=== PATIENT | male | born 1955 | race Caucasian/White ===

== ENCOUNTER 2017-05-30 11:58 | Inpatient (IN) | payer MEDICARE, OTHER ==
[~2017-05-30] VITALS: Ht 162.6 cm; Wt 103.0 kg
[~2017-05-30 11:58] MED LIST: ACID1TAB7 PO; CLIN300C8 PO; LEVO750T26 PO; LISI-167 PO; MULT-658 PO; SULF-169 PO
[2017-05-30] MEDS ORDERED: VANCOMYCIN PER PHARMACY MC ONE (12:30)
[2017-05-30] MEDS ORDERED: SODIUM CHLORIDE FLUSH 10ML SYR IVF ONE (12:30)
[2017-05-30] MEDS ORDERED: CEFTRIAXONE PMX 1GM/50ML 50 ML IVPB ONE (12:30)
[2017-05-30] MEDS ORDERED: VANCOMYCIN 2,000 MG in SODIUM CHLORIDE 0.9% 500 ML IV ONE (13:00)
[2017-05-30 13:12] LABS: HEMATOCRIT 43.6 % (39.2-51.8); HEMOGLOBIN 14.4 g/dL (13.7-18.0)
[2017-05-30 13:22] LABS: BLOOD UREA NITROGEN 14 mg/dL (7-18)
[2017-05-30 13:25] LABS: ASPARTATE AMINO TRANSFERASE 25 U/L (15-37)
[2017-05-30] MEDS ORDERED: AMPICILLIN/SULBACTAM 3 GM in SODIUM CHLORIDE 0.9% 100 ML IV SCH (16:30)
[2017-05-30] MEDS ORDERED: VANCOMYCIN PER PHARMACY MC PRN (16:30)
[2017-05-30] MEDS ORDERED: ONDANSETRON ODT 4 MG PO PRN (17:00)
[2017-05-30] MEDS: ENOXAPARIN 40 MG/0.4 ML SQ SCH (17:00)
[2017-05-30] MEDS ORDERED: PHARMACOKINETIC MONITORING MC PRN (17:00)
[2017-05-30] MEDS ORDERED: ONDANSETRON 2MG/ML, 2ML IVPush PRN (17:00)
[2017-05-30] MEDS ORDERED: HYDROcodone/APAP 5/325 TABLET PO PRN (17:00)
[2017-05-30 17:15] VITALS: BP 125/84
[2017-05-30] MEDS: SODIUM CHLORIDE 0.9% 1,000 ML IV SCH (17:20)
[2017-05-30] MEDS: AMPICILLIN/SULBACTAM 3 GM in SODIUM CHLORIDE 0.9% 100 ML IV SCH ×2 (17:20→23:36)
[2017-05-30] MEDS: POTASSIUM CHLORIDE 20 MEQ TAB.ER.PRT PO SCH (17:21)
[2017-05-30] MEDS ORDERED: AMLO10TA4 PO (17:48)
[2017-05-30 19:37] VITALS: BP 119/75
[2017-05-31 01:13] VITALS: BP 110/72
[2017-05-31] MEDS: ACETAMINOPHEN 325 MG TABLET PO PRN (01:19)
[2017-05-31] MEDS: SODIUM CHLORIDE 0.9% 1,000 ML IV SCH (05:23)
[2017-05-31] MEDS: AMPICILLIN/SULBACTAM 3 GM in SODIUM CHLORIDE 0.9% 100 ML IV SCH ×3 (05:24→19:21)
[2017-05-31 05:31] LABS: BLOOD UREA NITROGEN 9 mg/dL (7-18)
[2017-05-31 05:32] LABS: HEMATOCRIT 37.8 % (39.2-51.8); HEMOGLOBIN 12.5 g/dL (13.7-18.0); WHITE BLOOD COUNT 24.2 x10^3/uL (3.4-10)
[2017-05-31 05:34] LABS: ASPARTATE AMINO TRANSFERASE 21 U/L (15-37)
[2017-05-31 07:08] VITALS: BP 94/60
[2017-05-31] MEDS: POTASSIUM CHLORIDE 20 MEQ TAB.ER.PRT PO SCH (08:21)
[2017-05-31] MEDS: AMLODIPINE 5 MG TABLET PO SCH (08:22)
[2017-05-31] MEDS: VANCOMYCIN 2,000 MG in SODIUM CHLORIDE 0.9% 500 ML IV SCH (08:22)
[2017-05-31 13:20] VITALS: BP 108/73
[2017-05-31] MEDS ORDERED: LORazepam 2 MG/ML, 1ML IVPush ONE (16:30)
[2017-05-31] MEDS: ENOXAPARIN 40 MG/0.4 ML SQ SCH (17:00)
[2017-05-31] MEDS ORDERED: GADOBUTROL 10 MMOL/10 ML PFS ONE (18:00)
[2017-05-31 19:04] VITALS: BP 113/75
[2017-06-01] MEDS: AMPICILLIN/SULBACTAM 3 GM in SODIUM CHLORIDE 0.9% 100 ML IV SCH ×4 (00:58→22:32)
[2017-06-01] MEDS: VANCOMYCIN 2,000 MG in SODIUM CHLORIDE 0.9% 500 ML IV SCH ×2 (01:31→19:13)
[2017-06-01 02:13] VITALS: BP 110/72
[2017-06-01 07:27] VITALS: BP 115/75
[2017-06-01 09:24] LABS: HEMATOCRIT 37.6 % (39.2-51.8); HEMOGLOBIN 12.4 g/dL (13.7-18.0); WHITE BLOOD COUNT 33.8 x10^3/uL (3.4-10)
[2017-06-01 09:43] LABS: DIFF TOTAL CELLS COUNTED 100 CELL DIFF
[2017-06-01 09:44] LABS: ASPARTATE AMINO TRANSFERASE 22 U/L (15-37); BLOOD UREA NITROGEN 9 mg/dL (7-18)
[2017-06-01 09:46] LABS: VERIFY COUNTS? YES
[2017-06-01 09:47] LABS: ANISOCYTOSIS 1+; MICROCYTOSIS 1+
[2017-06-01 09:53] LABS: POLYCHROMASIA 1+
[2017-06-01] MEDS: AMLODIPINE 5 MG TABLET PO SCH (11:35)
[2017-06-01 14:00] VITALS: BP 115/75
[2017-06-01 16:56] VITALS: BP 108/73
[2017-06-01] MEDS: ENOXAPARIN 40 MG/0.4 ML SQ SCH (17:00)
[2017-06-01 19:15] VITALS: BP 102/68
[2017-06-01] MEDS ORDERED: DIPHENHYDRAMINE 25 MG CAPSULE PO ONE (20:00)
[2017-06-02 02:35] VITALS: BP 113/73
[2017-06-02 03:48] LABS: HEMATOCRIT 36.2 % (39.2-51.8); HEMOGLOBIN 11.8 g/dL (13.7-18.0); WHITE BLOOD COUNT 30.6 x10^3/uL (3.4-10)
[2017-06-02 04:00] LABS: BLOOD UREA NITROGEN 9 mg/dL (7-18)
[2017-06-02 04:21] LABS: DIFF TOTAL CELLS COUNTED 100 CELL DIFF
[2017-06-02 04:23] LABS: VERIFY COUNTS? YES
[2017-06-02 04:24] LABS: ANISOCYTOSIS 1+; MICROCYTOSIS 1+; POLYCHROMASIA 1+
[2017-06-02] MEDS: AMPICILLIN/SULBACTAM 3 GM in SODIUM CHLORIDE 0.9% 100 ML IV SCH ×2 (04:53→10:00)
[2017-06-02 08:10] VITALS: BP 114/73
[2017-06-02] MEDS: AMLODIPINE 5 MG TABLET PO SCH (10:00)
[2017-06-02] MEDS ORDERED: DIPHENHYDRAMINE 25 MG CAPSULE PO PRN (11:00)
[2017-06-02] MEDS ORDERED: POTASSIUM CHLORIDE 20 MEQ TAB.ER.PRT PO ONE (11:00)
[2017-06-02 12:36] VITALS: BP 111/71
[2017-06-02] MEDS ORDERED: CEFTAROLINE 600 MG in SODIUM CHLORIDE 0.9% 100 ML IV SCH (13:00)
[2017-06-02] MEDS: CEFTAROLINE 600 MG in SODIUM CHLORIDE 0.9% 250 ML IV SCH ×2 (13:56→21:17)
[2017-06-02] MEDS: ENOXAPARIN 40 MG/0.4 ML SQ SCH (16:10)
[2017-06-02 19:11] VITALS: BP 131/81
[2017-06-03 02:00] VITALS: BP 117/75
[2017-06-03] MEDS: CEFTAROLINE 600 MG in SODIUM CHLORIDE 0.9% 250 ML IV SCH ×3 (05:18→21:32)
[2017-06-03 05:58] LABS: HEMATOCRIT 34.5 % (39.2-51.8); HEMOGLOBIN 11.4 g/dL (13.7-18.0)
[2017-06-03 06:09] LABS: BLOOD UREA NITROGEN 9 mg/dL (7-18)
[2017-06-03 06:17] LABS: DIFF TOTAL CELLS COUNTED 100 CELL DIFF
[2017-06-03 06:19] LABS: ANISOCYTOSIS 1+; MICROCYTOSIS 1+; POLYCHROMASIA 1+; VERIFY COUNTS? YES
[2017-06-03 06:22] LABS: ASPARTATE AMINO TRANSFERASE 77 U/L (15-37); FERRITIN 297.1 ng/mL (26-388); TOTAL IRON BINDING CAPACITY 139 mcg/dL (250-450)
[2017-06-03 07:11] VITALS: BP 116/73
[2017-06-03] MEDS: AMLODIPINE 5 MG TABLET PO SCH (08:48)
[2017-06-03] MEDS: ACETAMINOPHEN 325 MG TABLET PO PRN (08:49)
[2017-06-03 12:38] VITALS: BP 117/74
[2017-06-03] MEDS: ENOXAPARIN 40 MG/0.4 ML SQ SCH (17:00)
[2017-06-03 18:46] VITALS: BP 121/78
[2017-06-04 03:41] VITALS: BP 128/80
[2017-06-04 04:41] LABS: HEMATOCRIT 37.7 % (39.2-51.8); HEMOGLOBIN 12.4 g/dL (13.7-18.0); WHITE BLOOD COUNT 21.9 x10^3/uL (3.4-10)
[2017-06-04 04:46] LABS: BLOOD UREA NITROGEN 7 mg/dL (7-18)
[2017-06-04] MEDS: CEFTAROLINE 600 MG in SODIUM CHLORIDE 0.9% 250 ML IV SCH ×3 (04:56→21:00)
[2017-06-04 09:41] VITALS: BP 121/71
[2017-06-04] MEDS: AMLODIPINE 5 MG TABLET PO SCH (10:15)
[2017-06-04 15:30] VITALS: BP 126/78
[2017-06-04] MEDS: ENOXAPARIN 40 MG/0.4 ML SQ SCH (15:50)
[2017-06-04 22:06] VITALS: BP 123/75
[2017-06-05 01:08] VITALS: BP 128/79
[2017-06-05] MEDS: CEFTAROLINE 600 MG in SODIUM CHLORIDE 0.9% 250 ML IV SCH ×3 (04:52→20:38)
[2017-06-05 05:05] LABS: HEMATOCRIT 36.9 % (39.2-51.8); HEMOGLOBIN 12.1 g/dL (13.7-18.0); WHITE BLOOD COUNT 15.5 x10^3/uL (3.4-10)
[2017-06-05 05:13] LABS: BLOOD UREA NITROGEN 7 mg/dL (7-18)
[2017-06-05 08:00] VITALS: BP 115/68
[2017-06-05] MEDS: AMLODIPINE 5 MG TABLET PO SCH (09:00)
[2017-06-05 13:36] VITALS: BP 109/70
[2017-06-05] MEDS: ENOXAPARIN 40 MG/0.4 ML SQ SCH (17:00)
[2017-06-05] MEDS ORDERED: ONDANSETRON ODT 4 MG PO PRN (18:30)
[2017-06-05] MEDS ORDERED: HYDROcodone/APAP 5/325 TABLET PO PRN (18:30)
[2017-06-05 18:43] VITALS: BP 115/72
[2017-06-06] MEDS: DIPHENHYDRAMINE 25 MG CAPSULE PO PRN (02:55)
[2017-06-06 03:27] VITALS: BP 126/68
[2017-06-06] MEDS: CEFTAROLINE 600 MG in SODIUM CHLORIDE 0.9% 250 ML IV SCH ×3 (04:58→21:24)
[2017-06-06 05:45] LABS: BLOOD UREA NITROGEN 9 mg/dL (7-18)
[2017-06-06 05:57] LABS: ASPARTATE AMINO TRANSFERASE 41 U/L (15-37)
[2017-06-06 06:01] LABS: WHITE BLOOD COUNT 13.6 x10^3/uL (3.4-10)
[2017-06-06 07:21] VITALS: BP 121/74
[2017-06-06] MEDS: AMLODIPINE 5 MG TABLET PO SCH (08:31)
[2017-06-06 13:09] VITALS: BP 117/73
[2017-06-06] MEDS: CARBAMIDE PEROXIDE EAR DROPS 6.5%, 15ML EACH EAR SCH ×2 (16:09→21:25)
[2017-06-06] MEDS: ENOXAPARIN 40 MG/0.4 ML SQ SCH (16:11)
[2017-06-06 19:27] VITALS: BP 117/77
[2017-06-07 01:21] VITALS: BP 126/82
[2017-06-07] MEDS: CEFTAROLINE 600 MG in SODIUM CHLORIDE 0.9% 250 ML IV SCH ×3 (04:57→22:16)
[2017-06-07 05:36] LABS: HEMATOCRIT 36.2 % (39.2-51.8); HEMOGLOBIN 11.9 g/dL (13.7-18.0); WHITE BLOOD COUNT 11.3 x10^3/uL (3.4-10)
[2017-06-07 05:52] LABS: BLOOD UREA NITROGEN 9 mg/dL (7-18)
[2017-06-07 07:19] VITALS: BP 103/66
[2017-06-07] MEDS: CARBAMIDE PEROXIDE EAR DROPS 6.5%, 15ML EACH EAR SCH ×4 (09:00→22:16)
[2017-06-07] MEDS: AMLODIPINE 5 MG TABLET PO SCH (09:46)
[2017-06-07 12:48] VITALS: BP 113/70
[2017-06-07] MEDS: MULTIVITAMIN 1 TABLET PO SCH (13:56)
[2017-06-07] MEDS: ENOXAPARIN 40 MG/0.4 ML SQ SCH (17:00)
[2017-06-07 20:02] VITALS: BP 119/79
[2017-06-07] MEDS: DIPHENHYDRAMINE 25 MG CAPSULE PO PRN (22:36)
[2017-06-08 02:10] VITALS: BP 121/79
[2017-06-08] MEDS: CEFTAROLINE 600 MG in SODIUM CHLORIDE 0.9% 250 ML IV SCH ×3 (05:15→21:05)
[2017-06-08 05:29] LABS: HEMATOCRIT 38.2 % (39.2-51.8); HEMOGLOBIN 12.4 g/dL (13.7-18.0); WHITE BLOOD COUNT 10.8 x10^3/uL (3.4-10)
[2017-06-08 05:41] LABS: BLOOD UREA NITROGEN 8 mg/dL (7-18)
[2017-06-08 08:06] VITALS: BP 127/76
[2017-06-08] MEDS: AMLODIPINE 5 MG TABLET PO SCH (08:46)
[2017-06-08] MEDS: CARBAMIDE PEROXIDE EAR DROPS 6.5%, 15ML EACH EAR SCH ×3 (08:46→21:05)
[2017-06-08] MEDS: MULTIVITAMIN 1 TABLET PO SCH (08:46)
[2017-06-08 14:53] VITALS: BP 109/68
[2017-06-08] MEDS: ENOXAPARIN 40 MG/0.4 ML SQ SCH (16:44)
[2017-06-08 19:13] VITALS: BP 116/72
[2017-06-09 04:00] VITALS: BP 110/70
[2017-06-09] MEDS: CEFTAROLINE 600 MG in SODIUM CHLORIDE 0.9% 250 ML IV SCH ×3 (05:21→20:57)
[2017-06-09 05:41] LABS: HEMATOCRIT 38.7 % (39.2-51.8); HEMOGLOBIN 12.4 g/dL (13.7-18.0); WHITE BLOOD COUNT 11.4 x10^3/uL (3.4-10)
[2017-06-09 06:05] LABS: BLOOD UREA NITROGEN 12 mg/dL (7-18)
[2017-06-09 08:03] VITALS: BP 131/84
[2017-06-09] MEDS: AMLODIPINE 5 MG TABLET PO SCH (10:02)
[2017-06-09] MEDS: MULTIVITAMIN 1 TABLET PO SCH (10:02)
[2017-06-09] MEDS: CARBAMIDE PEROXIDE EAR DROPS 6.5%, 15ML EACH EAR SCH ×3 (10:02→21:00)
[2017-06-09 16:11] VITALS: BP 125/75
[2017-06-09] MEDS: ENOXAPARIN 40 MG/0.4 ML SQ SCH (16:23)
[2017-06-09 19:36] VITALS: BP 106/65
[2017-06-09] MEDS: DIPHENHYDRAMINE 25 MG CAPSULE PO PRN (20:57)
[2017-06-10 01:57] VITALS: BP 124/79
[2017-06-10] MEDS: CEFTAROLINE 600 MG in SODIUM CHLORIDE 0.9% 250 ML IV SCH ×2 (04:51→13:19)
[2017-06-10 05:37] LABS: HEMATOCRIT 37.6 % (39.2-51.8); HEMOGLOBIN 12.4 g/dL (13.7-18.0); WHITE BLOOD COUNT 10.2 x10^3/uL (3.4-10)
[2017-06-10 05:48] LABS: BLOOD UREA NITROGEN 15 mg/dL (7-18)
[2017-06-10 07:01] VITALS: BP 132/78
[2017-06-10] MEDS: MULTIVITAMIN 1 TABLET PO SCH (10:33)
[2017-06-10] MEDS: CARBAMIDE PEROXIDE EAR DROPS 6.5%, 15ML EACH EAR SCH (10:33)
[2017-06-10] MEDS: AMLODIPINE 5 MG TABLET PO SCH (10:33)
[2017-06-10 14:43] VITALS: BP 144/74
== END 2017-06-10 15:25 | DRG 871 ==
LOC: ED 15:28 → EDIP 15:29 → ED 15:34 → 3NE 16:45
PROVIDERS: ADMIT Hospitalist; ATTEND Hospitalist
PROC: 02HV33Z Insertion of Infusion Device into Superior Vena Cava, Percutaneous Approach (ICD-10-PCS; principal; 2017-06-01)
PROC: B548ZZA Ultrasonography of Superior Vena Cava, Guidance (ICD-10-PCS; 2017-06-01)
PROC: B5181ZA Fluoroscopy of Superior Vena Cava using Low Osmolar Contrast, Guidance (ICD-10-PCS; 2017-06-01)
DX: A41.9 Sepsis, unspecified organism (principal); E43 Unspecified severe protein-calorie malnutrition; E11.52 Type 2 diabetes mellitus with diabetic peripheral angiopathy with gangrene; L89.319 Pressure ulcer of right buttock, unspecified stage; L03.116 Cellulitis of left lower limb; M86.8X7 Other osteomyelitis, ankle and foot; L03.115 Cellulitis of right lower limb; E87.6 Hypokalemia; L89.620 Pressure ulcer of left heel, unstageable; Q05.9 Spina bifida, unspecified; D75.89 Other specified diseases of blood and blood-forming organs; E11.621 Type 2 diabetes mellitus with foot ulcer; E11.65 Type 2 diabetes mellitus with hyperglycemia; E11.69 Type 2 diabetes mellitus with other specified complication; I11.0 Hypertensive heart disease with heart failure; Z68.39 Body mass index [BMI] 39.0-39.9, adult; I50.9 Heart failure, unspecified; K59.00 Constipation, unspecified; M19.90 Unspecified osteoarthritis, unspecified site; R32 Unspecified urinary incontinence; Z82.1 Family history of blindness and visual loss; Z82.49 Family history of ischemic heart disease and other diseases of the circulatory system; Z83.3 Family history of diabetes mellitus; Z86.14 Personal history of Methicillin resistant Staphylococcus aureus infection; Z89.511 Acquired absence of right leg below knee; Z91.19 Patient's noncompliance with other medical treatment and regimen; Z88.0 Allergy status to penicillin; L89.899 Pressure ulcer of other site, unspecified stage
CPT/HCPCS: 36415; 36569; 51702; 76937; 77001; 80048; 80053; 82728; 83036; 83540; 83550; 83605; 83735; 85025; 85610; 85651; 86140; 87040; 87070; 87077; 87147; 87186; 87205; 93005; 96365; 96366; A9585; J0295; J0712; J2405; J3370; C1751; J2060; J7030; J7040; J7050; Q0163

== ENCOUNTER 2017-09-07 11:15 | Emergency (ER) | payer OTHER ==
[~2017-09-07] VITALS: Ht 162.6 cm; Wt 120.0 kg
[~2017-09-07 11:15] MED LIST changes: +AMLO10TA4 PO
[2017-09-07 14:36] LABS: BASOPHILS % (AUTO) 1 % (0-1); EOSINOPHILS # (AUTO) 0.58 x10^3/uL (0-0.4); EOSINOPHILS % (AUTO) 5 % (1-7); LYMPHOCYTES # (AUTO) 2.38 x10^3/uL (1-3.4); LYMPHOCYTES % (AUTO) 20 % (22-44); MD NO; MEAN CORPUSCULAR HEMOGLOBIN 26.6 pg (27.5-34.5); MEAN CORPUSCULAR HGB CONC 32.5 g/dL (33.2-36.2); MEAN CORPUSCULAR VOLUME 81.7 fL (81-97); MEAN PLATELET VOLUME 7.8 fL (7.4-10.4); MONOCYTES # (AUTO) 0.66 x10^3/uL (0.2-0.8); MONOCYTES % (AUTO) 5 % (2-9); NEUTROPHILS # (AUTO) 8.46 x10^3/uL (1.8-6.8); NEUTROPHILS % (AUTO) 70 % (42-75); PLATELET COUNT 415 x10^3/uL (130-400); RED BLOOD COUNT 5.42 x10^6/uL (4.38-5.82); RED CELL DISTRIBUTION WIDTH 15.3 % (9.4-14.8)
[2017-09-07 14:48] LABS: ALBUMIN 2.8 g/dL (3.4-5.0); ANION GAP 8 mmol/L (5-15); CALCIUM 8.1 mg/dL (8.5-10.1); CHLORIDE 104 mmol/L (98-107); CREATININE 0.75 mg/dL (0.7-1.3)
[2017-09-07] MEDS ORDERED: CLINDAMYCIN 300 MG CAPSULE PO ONE (15:00)
[2017-09-07] MEDS ORDERED: CLINDAMYCIN 300 MG CAPSULE ONE (15:21)
[2017-09-07 15:47] VITALS: BP 126/82
== END 2017-09-07 15:49 | disposition home or self-care (01) ==
LOC: ED 13:50
DX: L89.893 Pressure ulcer of other site, stage 3 (principal); E11.9 Type 2 diabetes mellitus without complications; L03.116 Cellulitis of left lower limb; L89.93 Pressure ulcer of unspecified site, stage 3
CPT/HCPCS: 36415; 80048; 82040; 83605; 85025; 87040; 99285

== ENCOUNTER → 2017-12-02 | Outpatient (CLI) | payer OTHER | END | disposition home or self-care (01) | LOC: WOUND 11:48 | PROVIDERS: ATTEND Family Medicine | DX: I87.312 Chronic venous hypertension (idiopathic) with ulcer of left lower extremity (principal); L97.422 Non-pressure chronic ulcer of left heel and midfoot with fat layer exposed; L97.521 Non-pressure chronic ulcer of other part of left foot limited to breakdown of skin; Q05.8 Sacral spina bifida without hydrocephalus; E66.01 Morbid (severe) obesity due to excess calories; M19.90 Unspecified osteoarthritis, unspecified site; Z87.891 Personal history of nicotine dependence; Z89.511 Acquired absence of right leg below knee; Z68.43 Body mass index [BMI] 50.0-59.9, adult | CPT/HCPCS: 11042; 17250; 97597 ==

== ENCOUNTER → 2017-12-06 | Outpatient (CLI) | payer OTHER | END | disposition home or self-care (01) | LOC: WOUND 13:32 | PROVIDERS: ATTEND Internal Medicine Cardiovascular Disease | DX: T87.89 Other complications of amputation stump (principal); E11.621 Type 2 diabetes mellitus with foot ulcer; L89.629 Pressure ulcer of left heel, unspecified stage; L97.421 Non-pressure chronic ulcer of left heel and midfoot limited to breakdown of skin; L89.899 Pressure ulcer of other site, unspecified stage; L97.521 Non-pressure chronic ulcer of other part of left foot limited to breakdown of skin; E11.622 Type 2 diabetes mellitus with other skin ulcer; L97.811 Non-pressure chronic ulcer of other part of right lower leg limited to breakdown of skin; E66.01 Morbid (severe) obesity due to excess calories; I10 Essential (primary) hypertension; M19.90 Unspecified osteoarthritis, unspecified site; Q05.8 Sacral spina bifida without hydrocephalus; Z87.891 Personal history of nicotine dependence; Y83.5 Amputation of limb(s) as the cause of abnormal reaction of the patient, or of later complication, without mention of misadventure at the time of the procedure | CPT/HCPCS: 29581 ==

== ENCOUNTER 2017-12-11 04:36 | Inpatient (IN) | payer OTHER ==
[~2017-12-11] VITALS: Ht 162.6 cm; Wt 98.3 kg
[2017-12-11] MEDS ORDERED: SODIUM CHLORIDE FLUSH 10ML SYR IVF ONE (05:00)
[2017-12-11] MEDS ORDERED: VANCOMYCIN PER PHARMACY IV ONE (05:00)
[2017-12-11] MEDS ORDERED: CLINDAMYCIN PMX 900MG/50ML 50 ML IV ONE (05:00)
[2017-12-11] MEDS ORDERED: CLINDAMYCIN PMX 900MG/50ML 50 ML ONE (05:13)
[2017-12-11 05:20] LABS: MEAN CORPUSCULAR HEMOGLOBIN 26.7 pg (27.5-34.5); MEAN CORPUSCULAR VOLUME 80.8 fL (81-97); MEAN PLATELET VOLUME 7.8 fL (7.4-10.4); PLATELET COUNT 254 x10^3/uL (130-400); RED BLOOD COUNT 5.66 x10^6/uL (4.38-5.82); RED CELL DISTRIBUTION WIDTH 17.8 % (9.4-14.8)
[2017-12-11 05:30] LABS: ALANINE AMINOTRANSFERASE 15 U/L (12-78); ALBUMIN 2.7 g/dL (3.4-5.0); ANION GAP 9 mmol/L (5-15); CHLORIDE 98 mmol/L (98-107); CREATININE 1.28 mg/dL (0.7-1.3)
[2017-12-11] MEDS ORDERED: SODIUM CHLORIDE 0.9% 1,000ML IVBOLUS ONE (05:30)
[2017-12-11] MEDS ORDERED: LEVOFLOXACIN/PMX 750MG/150ML 150 ML IVPB ONE (05:30)
[2017-12-11] MEDS ORDERED: VANCOMYCIN 1,900 MG in SODIUM CHLORIDE 0.9% 250 ML IV ONE (05:30)
[2017-12-11 05:32] LABS: ALKALINE PHOSPHATASE 106 U/L (45-117); BILIRUBIN,TOTAL 1.3 mg/dL (0.2-1.0); TOTAL PROTEIN 8.2 g/dL (6.4-8.2)
[2017-12-11 05:51] LABS: MD YES
[2017-12-11 05:54] LABS: LYMPH#(MANUAL) 1.48 x10^3/uL (1-3.4); LYMPHS% (MANUAL) 4 % (22-44); MONOS#(MANUAL) 0.37 x10^3/uL (0.3-2.7); MONOS% (MANUAL) 1 % (2-9)
[2017-12-11 05:56] LABS: ANISOCYTOSIS 1+; BAND#(MANUAL) 1.48 x10^3/uL; BANDS%(MANUAL) 4 % (0-7); SEG#(MANUAL) 33.58 x10^3/uL (1.8-6.8); SEGS% (MANUAL) 91 % (42-75)
[2017-12-11 05:57] LABS: <PLATELET ESTIMATE> ADEQUATE; <PLT MORPHOLOGY> NORMAL PLT MORPH
[2017-12-11] MEDS ORDERED: LEVOFLOXACIN/PMX 750MG/150ML 150 ML ONE (08:15)
[2017-12-11] MEDS ORDERED: hydrALAzine 20 MG/ML, 1ML IVPush PRN (09:00)
[2017-12-11] MEDS ORDERED: OXYcodone IR 5MG TABLET PO PRN (09:00)
[2017-12-11] MEDS ORDERED: morphine SULFATE 10 MG/ML, 1ML IVPush PRN (09:00)
[2017-12-11] MEDS: POLYETHYLENE GLYCOL 17 GM PACKET PO SCH (09:00)
[2017-12-11] MEDS: HEPARIN 5,000 UNITS/ML, 1ML SQ SCH ×3 (09:00→17:00)
[2017-12-11 12:00] VITALS: BP 121/82
[2017-12-11 12:02] LABS: HCT (SEDRATE) 43.7 % (39.2-51.8)
[2017-12-11] MEDS: ACETAMINOPHEN 500 MG TABLET PO PRN (12:12)
[2017-12-11 14:00] VITALS: BP 102/70
[2017-12-11] MEDS ORDERED: LIDOCAINE-MPF 1%, 2ML ONE ×2 (14:23→14:30)
[2017-12-11] MEDS: AMLODIPINE 5 MG TABLET PO SCH (15:18)
[2017-12-11] MEDS: SODIUM CHLORIDE 0.9% 1,000 ML IV SCH (15:25)
[2017-12-11] MEDS: CLINDAMYCIN PMX 900MG/50ML 50 ML IV SCH (15:26)
[2017-12-11] MEDS: CEFTAROLINE 600 MG in SODIUM CHLORIDE 0.9% 100 ML IV SCH ×2 (16:36→17:00)
[2017-12-11] MEDS: METRONIDAZOLE PMX 500MG/100ML 100 ML IV SCH ×3 (17:00→23:10)
[2017-12-11 19:20] VITALS: BP 95/66
[2017-12-12] MEDS: CLINDAMYCIN PMX 900MG/50ML 50 ML IV SCH ×3 (00:08→15:39)
[2017-12-12] MEDS: HEPARIN 5,000 UNITS/ML, 1ML SQ SCH ×3 (01:00→17:00)
[2017-12-12] MEDS: CEFTAROLINE 600 MG in SODIUM CHLORIDE 0.9% 100 ML IV SCH ×3 (01:26→16:28)
[2017-12-12 01:33] VITALS: BP 106/73
[2017-12-12] MEDS ORDERED: OMNIPAQUE 350 MG/ML, 100ML BOTTLE ONE (03:42)
[2017-12-12] MEDS: SODIUM CHLORIDE 0.9% 1,000 ML IV SCH (04:50)
[2017-12-12] MEDS: METRONIDAZOLE PMX 500MG/100ML 100 ML IV SCH ×4 (04:50→23:01)
[2017-12-12 06:51] LABS: MEAN CORPUSCULAR HEMOGLOBIN 26.9 pg (27.5-34.5); MEAN CORPUSCULAR HGB CONC 33.1 g/dL (33.2-36.2); MEAN CORPUSCULAR VOLUME 81.4 fL (81-97); MEAN PLATELET VOLUME 7.9 fL (7.4-10.4); PLATELET COUNT 228 x10^3/uL (130-400); RED BLOOD COUNT 4.67 x10^6/uL (4.38-5.82); RED CELL DISTRIBUTION WIDTH 18.2 % (9.4-14.8)
[2017-12-12 06:59] VITALS: BP 97/65
[2017-12-12 07:05] LABS: ANION GAP 7 mmol/L (5-15); CALCIUM 7.4 mg/dL (8.5-10.1); CHLORIDE 106 mmol/L (98-107)
[2017-12-12 07:08] LABS: ALANINE AMINOTRANSFERASE 10 U/L (12-78); ALKALINE PHOSPHATASE 94 U/L (45-117); CREATININE 1.12 mg/dL (0.7-1.3); TOTAL PROTEIN 6.4 g/dL (6.4-8.2)
[2017-12-12 07:14] LABS: MD YES
[2017-12-12 07:15] LABS: <PLATELET ESTIMATE> ADEQUATE; <PLT MORPHOLOGY> NORMAL PLT MORPH; ANISOCYTOSIS 1+; BANDS%(MANUAL) 2 % (0-7); EOS% (MANUAL) 1 % (1-7); LYMPHS% (MANUAL) 3 % (22-44); MONOS% (MANUAL) 2 % (2-9); SEGS% (MANUAL) 92 % (42-75)
[2017-12-12] MEDS: AMLODIPINE 5 MG TABLET PO SCH (08:40)
[2017-12-12] MEDS: POLYETHYLENE GLYCOL 17 GM PACKET PO SCH (08:45)
[2017-12-12 13:39] VITALS: BP 95/60
[2017-12-12] MEDS: POTASSIUM CHLORIDE 20 MEQ TAB.ER.PRT PO SCH ×2 (15:09→22:51)
[2017-12-12 20:54] VITALS: BP 107/69
[2017-12-13] MEDS: CLINDAMYCIN PMX 900MG/50ML 50 ML IV SCH ×3 (00:09→15:27)
[2017-12-13] MEDS: HEPARIN 5,000 UNITS/ML, 1ML SQ SCH ×4 (00:12→16:52)
[2017-12-13] MEDS: CEFTAROLINE 600 MG in SODIUM CHLORIDE 0.9% 100 ML IV SCH ×3 (01:22→16:34)
[2017-12-13 02:34] VITALS: BP 107/68
[2017-12-13] MEDS: SODIUM CHLORIDE 0.9% 1,000 ML IV SCH (05:07)
[2017-12-13] MEDS: METRONIDAZOLE PMX 500MG/100ML 100 ML IV SCH ×4 (05:07→23:32)
[2017-12-13 05:32] LABS: MEAN CORPUSCULAR HEMOGLOBIN 26.8 pg (27.5-34.5); MEAN CORPUSCULAR HGB CONC 33.1 g/dL (33.2-36.2); MEAN CORPUSCULAR VOLUME 80.9 fL (81-97); MEAN PLATELET VOLUME 8.4 fL (7.4-10.4); PLATELET COUNT 230 x10^3/uL (130-400); RED BLOOD COUNT 4.36 x10^6/uL (4.38-5.82); RED CELL DISTRIBUTION WIDTH 17.8 % (9.4-14.8)
[2017-12-13 06:07] LABS: BASOPHILS % (AUTO) 0 % (0-1); EOSINOPHILS % (AUTO) 1 % (1-7); LYMPHOCYTES # (AUTO) 1.01 x10^3/uL (1-3.4); LYMPHOCYTES % (AUTO) 6 % (22-44); MD SCAN; MONOCYTES # (AUTO) 0.49 x10^3/uL (0.2-0.8); MONOCYTES % (AUTO) 3 % (2-9); NEUTROPHILS # (AUTO) 16.02 x10^3/uL (1.8-6.8); NEUTROPHILS % (AUTO) 90 % (42-75)
[2017-12-13 06:53] VITALS: BP 108/71
[2017-12-13 07:01] LABS: CHLORIDE 109 mmol/L (98-107)
[2017-12-13 07:02] LABS: ANION GAP 10 mmol/L (5-15); CALCIUM 6.7 mg/dL (8.5-10.1); CREATININE 0.93 mg/dL (0.7-1.3)
[2017-12-13] MEDS: POTASSIUM CHLORIDE 20 MEQ TAB.ER.PRT PO SCH (07:59)
[2017-12-13] MEDS: AMLODIPINE 5 MG TABLET PO SCH (08:46)
[2017-12-13] MEDS: POLYETHYLENE GLYCOL 17 GM PACKET PO SCH (09:00)
[2017-12-13 12:45] VITALS: BP 110/71
[2017-12-13 20:19] VITALS: BP 119/77
[2017-12-13 22:30] LABS: % IRON SATURATION 19 % (20-55); IRON LEVEL 26 mcg/dL (65-175); TOTAL IRON BINDING CAPACITY 140 mcg/dL (250-450)
[2017-12-14] MEDS: HEPARIN 5,000 UNITS/ML, 1ML SQ SCH ×3 (01:00→16:28)
[2017-12-14] MEDS: CEFTAROLINE 600 MG in SODIUM CHLORIDE 0.9% 100 ML IV SCH ×3 (01:47→18:14)
[2017-12-14 04:30] VITALS: BP 125/81
[2017-12-14] MEDS: METRONIDAZOLE PMX 500MG/100ML 100 ML IV SCH ×4 (05:20→23:45)
[2017-12-14] MEDS: SODIUM CHLORIDE 0.9% 1,000 ML IV SCH ×2 (05:20→23:47)
[2017-12-14 07:46] VITALS: BP 136/86
[2017-12-14] MEDS: POLYETHYLENE GLYCOL 17 GM PACKET PO SCH (09:00)
[2017-12-14] MEDS: AMLODIPINE 5 MG TABLET PO SCH (09:51)
[2017-12-14] MEDS: IRON SUCROSE COMPLEX 100MG/5ML IV SCH ×2 (11:16→11:20)
[2017-12-14 13:13] VITALS: BP 130/83
[2017-12-14 19:49] VITALS: BP 143/94
[2017-12-15] MEDS: HEPARIN 5,000 UNITS/ML, 1ML SQ SCH ×3 (01:43→17:00)
[2017-12-15] MEDS: CEFTAROLINE 600 MG in SODIUM CHLORIDE 0.9% 100 ML IV SCH ×4 (01:43→19:50)
[2017-12-15 01:49] VITALS: BP 137/89
[2017-12-15] MEDS: METRONIDAZOLE PMX 500MG/100ML 100 ML IV SCH ×3 (05:21→18:19)
[2017-12-15 05:52] LABS: ALBUMIN 2.1 g/dL (3.4-5.0); ANION GAP 7 mmol/L (5-15); CALCIUM 7.4 mg/dL (8.5-10.1); CHLORIDE 109 mmol/L (98-107); CREATININE 0.71 mg/dL (0.7-1.3)
[2017-12-15 06:00] LABS: BASOPHILS # (AUTO) 0.05 x10^3/uL (0-0.1); BASOPHILS % (AUTO) 0 % (0-1); EOSINOPHILS # (AUTO) 0.31 x10^3/uL (0-0.4); EOSINOPHILS % (AUTO) 3 % (1-7); LYMPHOCYTES # (AUTO) 1.86 x10^3/uL (1-3.4); LYMPHOCYTES % (AUTO) 15 % (22-44); MD NO; MEAN CORPUSCULAR HEMOGLOBIN 26.6 pg (27.5-34.5); MEAN CORPUSCULAR HGB CONC 32.6 g/dL (33.2-36.2); MEAN CORPUSCULAR VOLUME 81.6 fL (81-97); MEAN PLATELET VOLUME 8.4 fL (7.4-10.4); MONOCYTES % (AUTO) 5 % (2-9); NEUTROPHILS # (AUTO) 9.51 x10^3/uL (1.8-6.8); NEUTROPHILS % (AUTO) 77 % (42-75); PLATELET COUNT 297 x10^3/uL (130-400); RED BLOOD COUNT 4.79 x10^6/uL (4.38-5.82); RED CELL DISTRIBUTION WIDTH 17.5 % (9.4-14.8)
[2017-12-15 06:46] VITALS: BP 159/98
[2017-12-15] MEDS: POLYETHYLENE GLYCOL 17 GM PACKET PO SCH (09:00)
[2017-12-15] MEDS: IRON SUCROSE COMPLEX 100MG/5ML IV SCH (09:29)
[2017-12-15] MEDS: AMLODIPINE 5 MG TABLET PO SCH (09:29)
[2017-12-15] MEDS: ACETAMINOPHEN 500 MG TABLET PO PRN (11:40)
[2017-12-15 14:22] VITALS: BP 150/85
[2017-12-15] MEDS: SODIUM CHLORIDE 0.9% 1,000 ML IV SCH (17:35)
[2017-12-15 20:30] VITALS: BP 116/78
[2017-12-15] MEDS ORDERED: MAGNESIUM SULFATE PMX 2GM/50ML 50 ML IV ONE (22:30)
[2017-12-16] MEDS: POTASSIUM CHLORIDE 20 MEQ TAB.ER.PRT PO SCH ×2 (00:05→08:27)
[2017-12-16] MEDS: METRONIDAZOLE PMX 500MG/100ML 100 ML IV SCH ×2 (00:05→06:29)
[2017-12-16 00:14] VITALS: BP 117/78
[2017-12-16] MEDS: HEPARIN 5,000 UNITS/ML, 1ML SQ SCH ×4 (00:27→18:34)
[2017-12-16] MEDS: CEFTAROLINE 600 MG in SODIUM CHLORIDE 0.9% 100 ML IV SCH ×3 (04:40→20:59)
[2017-12-16 07:15] VITALS: BP 141/89
[2017-12-16] MEDS: IRON SUCROSE COMPLEX 100MG/5ML IV SCH (08:26)
[2017-12-16] MEDS: AMLODIPINE 5 MG TABLET PO SCH (08:27)
[2017-12-16] MEDS: POLYETHYLENE GLYCOL 17 GM PACKET PO SCH (08:28)
[2017-12-16] MEDS: SODIUM CHLORIDE 0.9% 1,000 ML IV SCH (12:55)
[2017-12-16 16:17] VITALS: BP 146/94
[2017-12-16] MEDS: ACETAMINOPHEN 500 MG TABLET PO PRN (18:33)
[2017-12-16 21:59] VITALS: BP 146/92
[2017-12-17 01:34] VITALS: BP 118/78
[2017-12-17] MEDS: HEPARIN 5,000 UNITS/ML, 1ML SQ SCH ×3 (03:49→20:30)
[2017-12-17] MEDS: CEFTAROLINE 600 MG in SODIUM CHLORIDE 0.9% 100 ML IV SCH ×3 (04:41→20:58)
[2017-12-17 08:33] VITALS: BP 163/95
[2017-12-17] MEDS: POLYETHYLENE GLYCOL 17 GM PACKET PO SCH (09:00)
[2017-12-17] MEDS: AMLODIPINE 5 MG TABLET PO SCH (09:56)
[2017-12-17] MEDS: SODIUM CHLORIDE 0.9% 1,000 ML IV SCH (09:56)
[2017-12-17] MEDS: IRON SUCROSE COMPLEX 100MG/5ML IV SCH (09:56)
[2017-12-17 12:50] VITALS: BP 134/84
[2017-12-17 21:14] VITALS: BP 123/80
[2017-12-18] MEDS: SODIUM CHLORIDE 0.9% 1,000 ML IV SCH ×2 (00:30→16:47)
[2017-12-18 01:33] VITALS: BP 92/62
[2017-12-18 02:01] VITALS: BP 141/90
[2017-12-18] MEDS: HEPARIN 5,000 UNITS/ML, 1ML SQ SCH ×3 (04:30→20:30)
[2017-12-18] MEDS: CEFTAROLINE 600 MG in SODIUM CHLORIDE 0.9% 100 ML IV SCH ×3 (05:04→22:00)
[2017-12-18 05:39] LABS: BASOPHILS # (AUTO) 0.06 x10^3/uL (0-0.1); BASOPHILS % (AUTO) 1 % (0-1); EOSINOPHILS # (AUTO) 0.39 x10^3/uL (0-0.4); EOSINOPHILS % (AUTO) 4 % (1-7); LYMPHOCYTES # (AUTO) 2.27 x10^3/uL (1-3.4); LYMPHOCYTES % (AUTO) 21 % (22-44); MD NO; MEAN CORPUSCULAR HEMOGLOBIN 26.7 pg (27.5-34.5); MEAN CORPUSCULAR HGB CONC 32.7 g/dL (33.2-36.2); MEAN CORPUSCULAR VOLUME 81.6 fL (81-97); MEAN PLATELET VOLUME 8.1 fL (7.4-10.4); MONOCYTES % (AUTO) 8 % (2-9); NEUTROPHILS % (AUTO) 66 % (42-75); PLATELET COUNT 314 x10^3/uL (130-400); RED BLOOD COUNT 4.99 x10^6/uL (4.38-5.82); RED CELL DISTRIBUTION WIDTH 17.5 % (9.4-14.8)
[2017-12-18 05:48] LABS: ALBUMIN 2.3 g/dL (3.4-5.0); ANION GAP 6 mmol/L (5-15); CALCIUM 7.6 mg/dL (8.5-10.1); CHLORIDE 105 mmol/L (98-107); CREATININE 0.76 mg/dL (0.7-1.3)
[2017-12-18 07:00] VITALS: BP 155/95
[2017-12-18] MEDS: POLYETHYLENE GLYCOL 17 GM PACKET PO SCH (09:00)
[2017-12-18] MEDS: IRON SUCROSE COMPLEX 100MG/5ML IV SCH (09:14)
[2017-12-18] MEDS: AMLODIPINE 5 MG TABLET PO SCH (09:14)
[2017-12-18 13:09] VITALS: BP 150/96
[2017-12-18] MEDS: POTASSIUM CHLORIDE 20 MEQ TAB.ER.PRT PO SCH (17:49)
[2017-12-18 21:10] VITALS: BP 187/119
[2017-12-18 22:23] VITALS: BP 133/86
[2017-12-19 03:35] VITALS: BP 126/84
[2017-12-19] MEDS: HEPARIN 5,000 UNITS/ML, 1ML SQ SCH ×3 (03:58→19:45)
[2017-12-19] MEDS: SODIUM CHLORIDE 0.9% 1,000 ML IV SCH ×2 (05:59→19:44)
[2017-12-19] MEDS: CEFTAROLINE 600 MG in SODIUM CHLORIDE 0.9% 100 ML IV SCH ×3 (06:00→22:00)
[2017-12-19 07:00] VITALS: BP 154/98
[2017-12-19] MEDS: POTASSIUM CHLORIDE 20 MEQ TAB.ER.PRT PO SCH (08:40)
[2017-12-19] MEDS: POLYETHYLENE GLYCOL 17 GM PACKET PO SCH (08:40)
[2017-12-19] MEDS: AMLODIPINE 5 MG TABLET PO SCH (08:40)
[2017-12-19] MEDS: IRON SUCROSE COMPLEX 100MG/5ML IV SCH (08:40)
[2017-12-19] MEDS ORDERED: POTA20TA6 PO (12:37)
[2017-12-19] MEDS ORDERED: CEFT600V IV (12:37)
[2017-12-19 13:50] VITALS: BP 145/90
[2017-12-19 19:04] VITALS: BP 143/90
[2017-12-20 02:51] VITALS: BP 148/76
[2017-12-20] MEDS: HEPARIN 5,000 UNITS/ML, 1ML SQ SCH ×4 (04:23→22:31)
[2017-12-20] MEDS: CEFTAROLINE 600 MG in SODIUM CHLORIDE 0.9% 100 ML IV SCH ×3 (05:41→22:29)
[2017-12-20 07:00] VITALS: BP 150/87
[2017-12-20] MEDS: POLYETHYLENE GLYCOL 17 GM PACKET PO SCH (09:00)
[2017-12-20] MEDS: AMLODIPINE 5 MG TABLET PO SCH (09:49)
[2017-12-20] MEDS: SODIUM CHLORIDE 0.9% 1,000 ML IV SCH ×2 (09:59→20:39)
[2017-12-20 13:58] VITALS: BP 148/89
[2017-12-20 19:30] VITALS: BP 136/80
[2017-12-21 01:57] VITALS: BP 146/89
[2017-12-21] MEDS: CEFTAROLINE 600 MG in SODIUM CHLORIDE 0.9% 100 ML IV SCH ×3 (06:13→21:39)
[2017-12-21] MEDS: AMLODIPINE 5 MG TABLET PO SCH (08:25)
[2017-12-21] MEDS: POLYETHYLENE GLYCOL 17 GM PACKET PO SCH (08:25)
[2017-12-21 08:43] VITALS: BP 144/94
[2017-12-21] MEDS: HEPARIN 5,000 UNITS/ML, 1ML SQ SCH ×3 (11:45→21:39)
[2017-12-21 15:46] VITALS: BP 135/90
[2017-12-21] MEDS ORDERED: OXYcodone IR 5MG TABLET PO PRN (16:00)
[2017-12-21 19:28] VITALS: BP 143/83
[2017-12-22 00:57] VITALS: BP 131/85
[2017-12-22] MEDS: CEFTAROLINE 600 MG in SODIUM CHLORIDE 0.9% 100 ML IV SCH ×3 (06:04→21:29)
[2017-12-22 06:34] VITALS: BP 129/85
[2017-12-22] MEDS: POLYETHYLENE GLYCOL 17 GM PACKET PO SCH (09:24)
[2017-12-22] MEDS: AMLODIPINE 5 MG TABLET PO SCH (09:29)
[2017-12-22] MEDS: HEPARIN 5,000 UNITS/ML, 1ML SQ SCH ×3 (12:21→22:49)
[2017-12-22 14:00] VITALS: BP 145/85
[2017-12-22] MEDS: FERROUS SULFATE 325 MG TABLET PO SCH (16:38)
[2017-12-22 19:20] VITALS: BP 138/89
[2017-12-23 00:42] VITALS: BP 136/86
[2017-12-23] MEDS: CEFTAROLINE 600 MG in SODIUM CHLORIDE 0.9% 100 ML IV SCH ×3 (05:40→21:51)
[2017-12-23] MEDS: HEPARIN 5,000 UNITS/ML, 1ML SQ SCH ×3 (05:41→21:51)
[2017-12-23 07:55] VITALS: BP 136/92
[2017-12-23] MEDS: POLYETHYLENE GLYCOL 17 GM PACKET PO SCH (09:00)
[2017-12-23] MEDS: AMLODIPINE 5 MG TABLET PO SCH (09:22)
[2017-12-23 14:00] VITALS: BP 137/88
[2017-12-23] MEDS: FERROUS SULFATE 325 MG TABLET PO SCH (16:23)
[2017-12-23 21:26] VITALS: BP 134/88
[2017-12-23] MEDS: DIPHENHYDRAMINE 25 MG CAPSULE PO PRN (23:09)
[2017-12-24 01:34] VITALS: BP 146/90
[2017-12-24] MEDS: HEPARIN 5,000 UNITS/ML, 1ML SQ SCH ×3 (04:30→22:09)
[2017-12-24] MEDS: CEFTAROLINE 600 MG in SODIUM CHLORIDE 0.9% 100 ML IV SCH ×3 (05:56→22:09)
[2017-12-24 08:55] VITALS: BP 147/88
[2017-12-24] MEDS: AMLODIPINE 5 MG TABLET PO SCH (09:45)
[2017-12-24] MEDS: POLYETHYLENE GLYCOL 17 GM PACKET PO SCH (09:45)
[2017-12-24 14:59] VITALS: BP 133/84
[2017-12-24] MEDS: FERROUS SULFATE 325 MG TABLET PO SCH (16:19)
[2017-12-24 18:49] VITALS: BP 142/84
[2017-12-25 00:34] VITALS: BP 138/86
[2017-12-25] MEDS: HEPARIN 5,000 UNITS/ML, 1ML SQ SCH ×2 (06:00→06:01)
[2017-12-25] MEDS: CEFTAROLINE 600 MG in SODIUM CHLORIDE 0.9% 100 ML IV SCH ×3 (06:01→22:17)
[2017-12-25 06:56] VITALS: BP 151/93
[2017-12-25] MEDS: POLYETHYLENE GLYCOL 17 GM PACKET PO SCH (09:17)
[2017-12-25 09:28] VITALS: BP 132/93
[2017-12-25] MEDS: AMLODIPINE 5 MG TABLET PO SCH (09:30)
[2017-12-25] MEDS: ENOXAPARIN 40 MG/0.4 ML SQ SCH (09:30)
[2017-12-25] MEDS: DIPHENHYDRAMINE 25 MG CAPSULE PO PRN (10:03)
[2017-12-25 14:34] VITALS: BP 130/81
[2017-12-25] MEDS: FERROUS SULFATE 325 MG TABLET PO SCH (17:37)
[2017-12-25 18:47] VITALS: BP 142/93
[2017-12-26 00:33] VITALS: BP 137/88
[2017-12-26] MEDS: DIPHENHYDRAMINE 25 MG CAPSULE PO PRN ×2 (00:39→23:24)
[2017-12-26] MEDS: CEFTAROLINE 600 MG in SODIUM CHLORIDE 0.9% 100 ML IV SCH ×3 (05:40→22:13)
[2017-12-26 07:53] VITALS: BP 156/87
[2017-12-26] MEDS: ENOXAPARIN 40 MG/0.4 ML SQ SCH (09:00)
[2017-12-26] MEDS: POLYETHYLENE GLYCOL 17 GM PACKET PO SCH (09:00)
[2017-12-26] MEDS: AMLODIPINE 5 MG TABLET PO SCH (09:31)
[2017-12-26 12:50] VITALS: BP 135/83
[2017-12-26] MEDS: FERROUS SULFATE 325 MG TABLET PO SCH (19:32)
[2017-12-26 21:17] VITALS: BP 133/87
[2017-12-27 01:39] VITALS: BP 151/88
[2017-12-27 04:56] LABS: CREATININE 0.76 mg/dL (0.7-1.3)
[2017-12-27] MEDS: CEFTAROLINE 600 MG in SODIUM CHLORIDE 0.9% 100 ML IV SCH ×3 (05:44→22:12)
[2017-12-27] MEDS: ENOXAPARIN 40 MG/0.4 ML SQ SCH (09:00)
[2017-12-27] MEDS: POLYETHYLENE GLYCOL 17 GM PACKET PO SCH (09:00)
[2017-12-27 09:17] VITALS: BP 119/79
[2017-12-27] MEDS: AMLODIPINE 5 MG TABLET PO SCH (09:20)
[2017-12-27 13:35] VITALS: BP 126/82
[2017-12-27] MEDS: DIPHENHYDRAMINE 25 MG CAPSULE PO PRN (16:04)
[2017-12-27] MEDS: FERROUS SULFATE 325 MG TABLET PO SCH (18:18)
[2017-12-27 19:40] VITALS: BP 133/76
[2017-12-28 01:31] VITALS: BP 127/85
[2017-12-28] MEDS: CEFTAROLINE 600 MG in SODIUM CHLORIDE 0.9% 100 ML IV SCH ×3 (05:49→22:15)
[2017-12-28 05:52] LABS: BASOPHILS # (AUTO) 0.05 x10^3/uL (0-0.1); BASOPHILS % (AUTO) 1 % (0-1); EOSINOPHILS # (AUTO) 0.26 x10^3/uL (0-0.4); EOSINOPHILS % (AUTO) 4 % (1-7); HCT (SEDRATE) 42.6 % (39.2-51.8); LYMPHOCYTES # (AUTO) 1.93 x10^3/uL (1-3.4); LYMPHOCYTES % (AUTO) 27 % (22-44); MD NO; MEAN CORPUSCULAR HEMOGLOBIN 27.5 pg (27.5-34.5); MEAN CORPUSCULAR VOLUME 83.2 fL (81-97); MEAN PLATELET VOLUME 7.9 fL (7.4-10.4); MONOCYTES # (AUTO) 0.74 x10^3/uL (0.2-0.8); MONOCYTES % (AUTO) 11 % (2-9); NEUTROPHILS # (AUTO) 4.06 x10^3/uL (1.8-6.8); NEUTROPHILS % (AUTO) 58 % (42-75); PLATELET COUNT 182 x10^3/uL (130-400); RED CELL DISTRIBUTION WIDTH 19.8 % (9.4-14.8)
[2017-12-28 06:05] LABS: ALANINE AMINOTRANSFERASE 22 U/L (12-78); ALBUMIN 2.7 g/dL (3.4-5.0); ANION GAP 4 mmol/L (5-15); C-REACTIVE PROTEIN, QUANT 0.39 mg/dL (0.02-0.49); CALCIUM 8.5 mg/dL (8.5-10.1); CHLORIDE 109 mmol/L (98-107); CREATININE 0.75 mg/dL (0.7-1.3)
[2017-12-28 06:07] LABS: ALKALINE PHOSPHATASE 97 U/L (45-117); BILIRUBIN,TOTAL 0.6 mg/dL (0.2-1.0); TOTAL PROTEIN 7.5 g/dL (6.4-8.2)
[2017-12-28 08:41] VITALS: BP 126/86
[2017-12-28] MEDS: ENOXAPARIN 40 MG/0.4 ML SQ SCH (09:00)
[2017-12-28] MEDS: POLYETHYLENE GLYCOL 17 GM PACKET PO SCH (09:00)
[2017-12-28] MEDS: AMLODIPINE 5 MG TABLET PO SCH (10:12)
[2017-12-28] MEDS ORDERED: OMNIPAQUE 350 MG/ML, 150 ML BOTTLE ONE (15:19)
[2017-12-28 15:35] VITALS: BP 127/81
[2017-12-28] MEDS: FERROUS SULFATE 325 MG TABLET PO SCH (16:39)
[2017-12-28 20:02] VITALS: BP 145/90
[2017-12-29 00:39] VITALS: BP 129/80
[2017-12-29] MEDS: CEFTAROLINE 600 MG in SODIUM CHLORIDE 0.9% 100 ML IV SCH ×3 (06:30→21:39)
[2017-12-29] MEDS: POLYETHYLENE GLYCOL 17 GM PACKET PO SCH (09:22)
[2017-12-29] MEDS: ENOXAPARIN 40 MG/0.4 ML SQ SCH (09:22)
[2017-12-29 09:25] VITALS: BP 132/89
[2017-12-29] MEDS: LOSARTAN 50MG TABLET PO SCH (09:37)
[2017-12-29 14:36] VITALS: BP 124/85
[2017-12-29] MEDS: FERROUS SULFATE 325 MG TABLET PO SCH (16:29)
[2017-12-29 18:29] VITALS: BP 144/92
[2017-12-30 00:31] VITALS: BP 137/88
[2017-12-30 05:52] LABS: BASOPHILS # (AUTO) 0.07 x10^3/uL (0-0.1); BASOPHILS % (AUTO) 1 % (0-1); EOSINOPHILS # (AUTO) 0.35 x10^3/uL (0-0.4); EOSINOPHILS % (AUTO) 5 % (1-7); LYMPHOCYTES # (AUTO) 2.18 x10^3/uL (1-3.4); LYMPHOCYTES % (AUTO) 30 % (22-44); MD NO; MEAN CORPUSCULAR HEMOGLOBIN 27.1 pg (27.5-34.5); MEAN CORPUSCULAR HGB CONC 32.7 g/dL (33.2-36.2); MEAN CORPUSCULAR VOLUME 82.9 fL (81-97); MEAN PLATELET VOLUME 7.7 fL (7.4-10.4); MONOCYTES # (AUTO) 0.73 x10^3/uL (0.2-0.8); MONOCYTES % (AUTO) 10 % (2-9); NEUTROPHILS # (AUTO) 3.94 x10^3/uL (1.8-6.8); NEUTROPHILS % (AUTO) 54 % (42-75); PLATELET COUNT 168 x10^3/uL (130-400); RED BLOOD COUNT 5.12 x10^6/uL (4.38-5.82); RED CELL DISTRIBUTION WIDTH 19.7 % (9.4-14.8)
[2017-12-30] MEDS: CEFTAROLINE 600 MG in SODIUM CHLORIDE 0.9% 100 ML IV SCH ×3 (06:00→22:02)
[2017-12-30 06:05] LABS: ALANINE AMINOTRANSFERASE 24 U/L (12-78); ALBUMIN 2.8 g/dL (3.4-5.0); ANION GAP 3 mmol/L (5-15); CALCIUM 8.2 mg/dL (8.5-10.1); CHLORIDE 110 mmol/L (98-107); CREATININE 0.74 mg/dL (0.7-1.3)
[2017-12-30 06:08] LABS: ALKALINE PHOSPHATASE 110 U/L (45-117); BILIRUBIN,TOTAL 0.5 mg/dL (0.2-1.0); TOTAL PROTEIN 7.5 g/dL (6.4-8.2)
[2017-12-30 07:59] VITALS: BP 134/85
[2017-12-30] MEDS: ENOXAPARIN 40 MG/0.4 ML SQ SCH (09:00)
[2017-12-30] MEDS: POLYETHYLENE GLYCOL 17 GM PACKET PO SCH (09:00)
[2017-12-30] MEDS: LOSARTAN 50MG TABLET PO SCH (09:23)
[2017-12-30 14:00] VITALS: BP 142/89
[2017-12-30] MEDS: FERROUS SULFATE 325 MG TABLET PO SCH (16:51)
[2017-12-30] MEDS: MECLIZINE CHEWABLE 25 MG TAB PO SCH ×2 (16:51→21:00)
[2017-12-30 19:58] VITALS: BP 145/87
[2017-12-31 00:39] VITALS: BP 149/98
[2017-12-31 04:46] LABS: ALBUMIN 2.9 g/dL (3.4-5.0); ANION GAP 4 mmol/L (5-15); CALCIUM 8.5 mg/dL (8.5-10.1); CHLORIDE 108 mmol/L (98-107); CREATININE 0.69 mg/dL (0.7-1.3)
[2017-12-31 04:47] LABS: BASOPHILS # (AUTO) 0.08 x10^3/uL (0-0.1); BASOPHILS % (AUTO) 1 % (0-1); EOSINOPHILS % (AUTO) 6 % (1-7); LYMPHOCYTES # (AUTO) 2.06 x10^3/uL (1-3.4); LYMPHOCYTES % (AUTO) 31 % (22-44); MD NO; MEAN CORPUSCULAR HEMOGLOBIN 27.4 pg (27.5-34.5); MEAN CORPUSCULAR HGB CONC 32.8 g/dL (33.2-36.2); MEAN CORPUSCULAR VOLUME 83.5 fL (81-97); MEAN PLATELET VOLUME 8.2 fL (7.4-10.4); MONOCYTES # (AUTO) 0.67 x10^3/uL (0.2-0.8); MONOCYTES % (AUTO) 10 % (2-9); NEUTROPHILS # (AUTO) 3.34 x10^3/uL (1.8-6.8); NEUTROPHILS % (AUTO) 51 % (42-75); PLATELET COUNT 148 x10^3/uL (130-400); RED BLOOD COUNT 5.24 x10^6/uL (4.38-5.82); RED CELL DISTRIBUTION WIDTH 19.3 % (9.4-14.8)
[2017-12-31] MEDS: MECLIZINE CHEWABLE 25 MG TAB PO SCH ×4 (06:00→21:00)
[2017-12-31] MEDS: CEFTAROLINE 600 MG in SODIUM CHLORIDE 0.9% 100 ML IV SCH ×3 (06:00→21:40)
[2017-12-31 08:00] VITALS: BP 154/93
[2017-12-31] MEDS: ENOXAPARIN 40 MG/0.4 ML SQ SCH (09:00)
[2017-12-31] MEDS: POLYETHYLENE GLYCOL 17 GM PACKET PO SCH (09:00)
[2017-12-31] MEDS: LOSARTAN 50MG TABLET PO SCH (09:41)
[2017-12-31 14:43] VITALS: BP 142/91
[2017-12-31] MEDS: FERROUS SULFATE 325 MG TABLET PO SCH (17:22)
[2017-12-31 18:47] VITALS: BP 126/67
[2018-01-01 02:26] VITALS: BP 133/87
[2018-01-01 04:28] LABS: EOSINOPHILS % (AUTO) 8 % (1-7); MD NO; MEAN CORPUSCULAR HEMOGLOBIN 27.5 pg (27.5-34.5); MEAN PLATELET VOLUME 8.2 fL (7.4-10.4); RED BLOOD COUNT 5.13 x10^6/uL (4.38-5.82)
[2018-01-01 04:35] LABS: BASOPHILS # (AUTO) 0.06 x10^3/uL (0-0.1); BASOPHILS % (AUTO) 1 % (0-1); EOSINOPHILS # (AUTO) 0.52 x10^3/uL (0-0.4); LYMPHOCYTES # (AUTO) 2.05 x10^3/uL (1-3.4); LYMPHOCYTES % (AUTO) 32 % (22-44); MEAN CORPUSCULAR VOLUME 83.3 fL (81-97); MONOCYTES # (AUTO) 0.71 x10^3/uL (0.2-0.8); MONOCYTES % (AUTO) 11 % (2-9); NEUTROPHILS % (AUTO) 48 % (42-75); PLATELET COUNT 165 x10^3/uL (130-400); RED CELL DISTRIBUTION WIDTH 19.2 % (9.4-14.8)
[2018-01-01 04:43] LABS: ALBUMIN 2.8 g/dL (3.4-5.0); ANION GAP 6 mmol/L (5-15); CALCIUM 7.8 mg/dL (8.5-10.1); CHLORIDE 109 mmol/L (98-107); CREATININE 1.04 mg/dL (0.7-1.3)
[2018-01-01] MEDS: MECLIZINE CHEWABLE 25 MG TAB PO SCH ×4 (05:50→22:06)
[2018-01-01] MEDS: CEFTAROLINE 600 MG in SODIUM CHLORIDE 0.9% 100 ML IV SCH ×3 (05:50→22:06)
[2018-01-01] MEDS: LOSARTAN 50MG TABLET PO SCH (08:08)
[2018-01-01] MEDS: POLYETHYLENE GLYCOL 17 GM PACKET PO SCH (08:09)
[2018-01-01] MEDS: ENOXAPARIN 40 MG/0.4 ML SQ SCH (08:09)
[2018-01-01 10:00] VITALS: BP 145/88
[2018-01-01 14:00] VITALS: BP 125/84
[2018-01-01] MEDS: FERROUS SULFATE 325 MG TABLET PO SCH (16:08)
[2018-01-01 16:22] VITALS: BP 126/81
[2018-01-01] MEDS: ACETAMINOPHEN 500 MG TABLET PO PRN (18:32)
[2018-01-01 19:22] VITALS: BP 133/85
[2018-01-02 02:03] VITALS: BP 130/74
[2018-01-02] MEDS: ACETAMINOPHEN 500 MG TABLET PO PRN (02:14)
[2018-01-02 04:40] LABS: BASOPHILS # (AUTO) 0.07 x10^3/uL (0-0.1); BASOPHILS % (AUTO) 1 % (0-1); EOSINOPHILS % (AUTO) 9 % (1-7); HCT (SEDRATE) 42.4 % (39.2-51.8); LYMPHOCYTES % (AUTO) 36 % (22-44); MD NO; MEAN CORPUSCULAR HEMOGLOBIN 27.6 pg (27.5-34.5); MEAN CORPUSCULAR HGB CONC 32.9 g/dL (33.2-36.2); MEAN PLATELET VOLUME 8.2 fL (7.4-10.4); MONOCYTES # (AUTO) 0.65 x10^3/uL (0.2-0.8); MONOCYTES % (AUTO) 11 % (2-9); NEUTROPHILS # (AUTO) 2.48 x10^3/uL (1.8-6.8); NEUTROPHILS % (AUTO) 43 % (42-75); PLATELET COUNT 166 x10^3/uL (130-400); RED BLOOD COUNT 5.02 x10^6/uL (4.38-5.82)
[2018-01-02 04:51] LABS: ALANINE AMINOTRANSFERASE 17 U/L (12-78); ALBUMIN 2.7 g/dL (3.4-5.0); ANION GAP 6 mmol/L (5-15); C-REACTIVE PROTEIN, QUANT 0.38 mg/dL (0.02-0.49); CALCIUM 8.3 mg/dL (8.5-10.1); CHLORIDE 108 mmol/L (98-107); CREATININE 0.83 mg/dL (0.7-1.3)
[2018-01-02 04:53] LABS: ALKALINE PHOSPHATASE 110 U/L (45-117); BILIRUBIN,TOTAL 0.3 mg/dL (0.2-1.0); TOTAL PROTEIN 7.1 g/dL (6.4-8.2)
[2018-01-02] MEDS: MECLIZINE CHEWABLE 25 MG TAB PO SCH ×4 (05:16→20:44)
[2018-01-02] MEDS: CEFTAROLINE 600 MG in SODIUM CHLORIDE 0.9% 100 ML IV SCH ×3 (06:29→21:28)
[2018-01-02 06:54] VITALS: BP 132/84
[2018-01-02] MEDS: LOSARTAN 50MG TABLET PO SCH (08:27)
[2018-01-02] MEDS: POLYETHYLENE GLYCOL 17 GM PACKET PO SCH (08:29)
[2018-01-02] MEDS: ENOXAPARIN 40 MG/0.4 ML SQ SCH (08:30)
[2018-01-02 13:25] VITALS: BP 143/87
[2018-01-02] MEDS: FERROUS SULFATE 325 MG TABLET PO SCH ×2 (16:37→16:49)
[2018-01-02 19:23] VITALS: BP 151/90
[2018-01-02] MEDS: DIPHENHYDRAMINE 25 MG CAPSULE PO PRN (20:43)
[2018-01-03 02:51] VITALS: BP 133/65
[2018-01-03] MEDS: CEFTAROLINE 600 MG in SODIUM CHLORIDE 0.9% 100 ML IV SCH ×3 (05:37→21:53)
[2018-01-03] MEDS: MECLIZINE CHEWABLE 25 MG TAB PO SCH ×3 (05:37→14:56)
[2018-01-03 06:46] VITALS: BP 145/80
[2018-01-03] MEDS: ENOXAPARIN 40 MG/0.4 ML SQ SCH (09:00)
[2018-01-03] MEDS: POLYETHYLENE GLYCOL 17 GM PACKET PO SCH (09:00)
[2018-01-03] MEDS: LOSARTAN 50MG TABLET PO SCH (09:56)
[2018-01-03 14:45] VITALS: BP 134/86
[2018-01-03] MEDS: FERROUS SULFATE 325 MG TABLET PO SCH (16:40)
[2018-01-03 19:07] VITALS: BP 135/85
[2018-01-04] MEDS: ACETAMINOPHEN 500 MG TABLET PO PRN ×4 (00:15→23:53)
[2018-01-04 02:52] VITALS: BP 149/77
[2018-01-04] MEDS: CEFTAROLINE 600 MG in SODIUM CHLORIDE 0.9% 100 ML IV SCH ×3 (05:40→21:27)
[2018-01-04 06:11] LABS: BASOPHILS # (AUTO) 0.07 x10^3/uL (0-0.1); BASOPHILS % (AUTO) 1 % (0-1); EOSINOPHILS # (AUTO) 0.58 x10^3/uL (0-0.4); EOSINOPHILS % (AUTO) 8 % (1-7); LYMPHOCYTES # (AUTO) 2.32 x10^3/uL (1-3.4); LYMPHOCYTES % (AUTO) 33 % (22-44); MD NO; MEAN CORPUSCULAR HEMOGLOBIN 27.8 pg (27.5-34.5); MEAN CORPUSCULAR HGB CONC 33.2 g/dL (33.2-36.2); MEAN PLATELET VOLUME 8.3 fL (7.4-10.4); MONOCYTES # (AUTO) 0.71 x10^3/uL (0.2-0.8); MONOCYTES % (AUTO) 10 % (2-9); NEUTROPHILS # (AUTO) 3.44 x10^3/uL (1.8-6.8); NEUTROPHILS % (AUTO) 48 % (42-75); PLATELET COUNT 167 x10^3/uL (130-400); RED BLOOD COUNT 4.89 x10^6/uL (4.38-5.82); RED CELL DISTRIBUTION WIDTH 18.8 % (9.4-14.8)
[2018-01-04 06:21] LABS: ALBUMIN 2.8 g/dL (3.4-5.0); ANION GAP 7 mmol/L (5-15); CHLORIDE 105 mmol/L (98-107)
[2018-01-04 06:22] LABS: CREATININE 0.77 mg/dL (0.7-1.3)
[2018-01-04 06:50] VITALS: BP 176/98
[2018-01-04 07:23] VITALS: BP 145/90
[2018-01-04] MEDS: POLYETHYLENE GLYCOL 17 GM PACKET PO SCH (09:00)
[2018-01-04] MEDS: LOSARTAN 50MG TABLET PO SCH (09:52)
[2018-01-04] MEDS: ENOXAPARIN 40 MG/0.4 ML SQ SCH (09:55)
[2018-01-04 14:42] VITALS: BP 143/91
[2018-01-04] MEDS: FERROUS SULFATE 325 MG TABLET PO SCH (16:47)
[2018-01-04 20:24] VITALS: BP 134/88
[2018-01-05 00:46] VITALS: BP 162/95
[2018-01-05] MEDS: CEFTAROLINE 600 MG in SODIUM CHLORIDE 0.9% 100 ML IV SCH ×3 (06:17→22:41)
[2018-01-05 08:03] VITALS: BP 118/68
[2018-01-05 08:14] VITALS: BP 180/98
[2018-01-05] MEDS: LOSARTAN 50MG TABLET PO SCH (08:28)
[2018-01-05] MEDS: POLYETHYLENE GLYCOL 17 GM PACKET PO SCH (08:31)
[2018-01-05] MEDS: ENOXAPARIN 40 MG/0.4 ML SQ SCH (08:32)
[2018-01-05 09:18] VITALS: BP 135/88
[2018-01-05 14:05] VITALS: BP 155/96
[2018-01-05] MEDS: FERROUS SULFATE 325 MG TABLET PO SCH (18:24)
[2018-01-05] MEDS: ACETAMINOPHEN 500 MG TABLET PO PRN (18:47)
[2018-01-05 20:03] VITALS: BP 165/101
[2018-01-06] MEDS: ACETAMINOPHEN 500 MG TABLET PO PRN ×2 (00:38→08:41)
[2018-01-06 02:02] VITALS: BP 169/99
[2018-01-06] MEDS: CEFTAROLINE 600 MG in SODIUM CHLORIDE 0.9% 100 ML IV SCH ×3 (06:07→23:59)
[2018-01-06 08:34] VITALS: BP 168/111
[2018-01-06] MEDS: ENOXAPARIN 40 MG/0.4 ML SQ SCH (08:40)
[2018-01-06] MEDS: LOSARTAN 50MG TABLET PO SCH (08:40)
[2018-01-06] MEDS: POLYETHYLENE GLYCOL 17 GM PACKET PO SCH (08:41)
[2018-01-06] MEDS ORDERED: IBUPROFEN 600 MG TABLET ONE (13:07)
[2018-01-06] MEDS ORDERED: IBUPROFEN 200 MG TABLET PO ONE (13:30)
[2018-01-06 14:30] VITALS: BP_SYST 126; BP_SYST 148; BP_DIAS 84; BP_DIAS 85
[2018-01-06] MEDS: FERROUS SULFATE 325 MG TABLET PO SCH ×2 (17:00→17:44)
[2018-01-06 20:16] VITALS: BP 142/66
[2018-01-06] MEDS: DIPHENHYDRAMINE 25 MG CAPSULE PO PRN (22:11)
[2018-01-06] MEDS: IBUPROFEN 200 MG TABLET PO PRN (23:59)
[2018-01-07 02:08] VITALS: BP 130/74
[2018-01-07 07:04] VITALS: BP 152/100
[2018-01-07] MEDS: LOSARTAN 50MG TABLET PO SCH (08:38)
[2018-01-07] MEDS: CEFTAROLINE 600 MG in SODIUM CHLORIDE 0.9% 100 ML IV SCH ×3 (08:38→23:59)
[2018-01-07] MEDS: ENOXAPARIN 40 MG/0.4 ML SQ SCH (08:38)
[2018-01-07] MEDS: IBUPROFEN 200 MG TABLET PO PRN ×2 (08:39→16:29)
[2018-01-07] MEDS: POLYETHYLENE GLYCOL 17 GM PACKET PO SCH (08:39)
[2018-01-07 14:30] VITALS: BP 145/88
[2018-01-07] MEDS: FERROUS SULFATE 325 MG TABLET PO SCH (16:29)
[2018-01-07 19:35] VITALS: BP 150/91
[2018-01-07 20:21] VITALS: BP 154/77
[2018-01-08 00:35] VITALS: BP 161/84
[2018-01-08 06:57] VITALS: BP 158/74
[2018-01-08] MEDS: CEFTAROLINE 600 MG in SODIUM CHLORIDE 0.9% 100 ML IV SCH ×2 (08:58→15:32)
[2018-01-08] MEDS: LOSARTAN 50MG TABLET PO SCH (08:58)
[2018-01-08] MEDS: ENOXAPARIN 40 MG/0.4 ML SQ SCH ×2 (08:59→09:21)
[2018-01-08] MEDS: POLYETHYLENE GLYCOL 17 GM PACKET PO SCH (08:59)
[2018-01-08 15:20] VITALS: BP 144/81
[2018-01-08] MEDS: FERROUS SULFATE 325 MG TABLET PO SCH (18:02)
[2018-01-08 18:33] LABS: CREATININE 0.81 mg/dL (0.7-1.3)
[2018-01-08 20:22] VITALS: BP 155/93
[2018-01-09] MEDS: CEFTAROLINE 600 MG in SODIUM CHLORIDE 0.9% 100 ML IV SCH ×4 (00:30→23:46)
[2018-01-09 01:22] VITALS: BP 124/79
[2018-01-09 05:24] LABS: BASOPHILS # (AUTO) 0.05 x10^3/uL (0-0.1); BASOPHILS % (AUTO) 1 % (0-1); EOSINOPHILS # (AUTO) 0.85 x10^3/uL (0-0.4); EOSINOPHILS % (AUTO) 11 % (1-7); LYMPHOCYTES # (AUTO) 2.14 x10^3/uL (1-3.4); LYMPHOCYTES % (AUTO) 28 % (22-44); MD NO; MEAN CORPUSCULAR HEMOGLOBIN 27.4 pg (27.5-34.5); MEAN CORPUSCULAR HGB CONC 32.7 g/dL (33.2-36.2); MEAN CORPUSCULAR VOLUME 83.8 fL (81-97); MEAN PLATELET VOLUME 8.2 fL (7.4-10.4); MONOCYTES # (AUTO) 0.62 x10^3/uL (0.2-0.8); MONOCYTES % (AUTO) 8 % (2-9); NEUTROPHILS # (AUTO) 3.96 x10^3/uL (1.8-6.8); NEUTROPHILS % (AUTO) 52 % (42-75); PLATELET COUNT 194 x10^3/uL (130-400); RED BLOOD COUNT 4.82 x10^6/uL (4.38-5.82); RED CELL DISTRIBUTION WIDTH 19.3 % (9.4-14.8)
[2018-01-09 05:31] LABS: CHLORIDE 109 mmol/L (98-107)
[2018-01-09 05:44] LABS: ALANINE AMINOTRANSFERASE 20 U/L (12-78); ALBUMIN 2.7 g/dL (3.4-5.0); ALKALINE PHOSPHATASE 122 U/L (45-117); ANION GAP 6 mmol/L (5-15); BILIRUBIN,TOTAL 0.7 mg/dL (0.2-1.0); CALCIUM 7.5 mg/dL (8.5-10.1); CREATININE 0.78 mg/dL (0.7-1.3); TOTAL PROTEIN 6.9 g/dL (6.4-8.2)
[2018-01-09 07:38] VITALS: BP 157/83
[2018-01-09] MEDS: POLYETHYLENE GLYCOL 17 GM PACKET PO SCH (08:22)
[2018-01-09] MEDS: ENOXAPARIN 40 MG/0.4 ML SQ SCH (09:00)
[2018-01-09] MEDS: LOSARTAN 50MG TABLET PO SCH (09:12)
[2018-01-09 13:40] VITALS: BP 152/92
[2018-01-09] MEDS: FERROUS SULFATE 325 MG TABLET PO SCH (16:46)
[2018-01-09 21:15] VITALS: BP 162/91
[2018-01-10 03:40] VITALS: BP 137/82
[2018-01-10] MEDS: DIPHENHYDRAMINE 25 MG CAPSULE PO PRN ×2 (06:40→23:42)
[2018-01-10 08:02] VITALS: BP 161/79
[2018-01-10] MEDS: LOSARTAN 50MG TABLET PO SCH (08:51)
[2018-01-10] MEDS: CEFTAROLINE 600 MG in SODIUM CHLORIDE 0.9% 100 ML IV SCH ×3 (08:51→23:42)
[2018-01-10] MEDS: POLYETHYLENE GLYCOL 17 GM PACKET PO SCH (08:51)
[2018-01-10] MEDS: ENOXAPARIN 40 MG/0.4 ML SQ SCH (08:51)
[2018-01-10 12:02] VITALS: BP 101/61
[2018-01-10 14:10] VITALS: BP 163/97
[2018-01-10] MEDS: FERROUS SULFATE 325 MG TABLET PO SCH (16:07)
[2018-01-10 19:18] VITALS: BP 155/89
[2018-01-11 01:28] VITALS: BP 155/92
[2018-01-11 04:58] LABS: BASOPHILS # (AUTO) 0.06 x10^3/uL (0-0.1); BASOPHILS % (AUTO) 1 % (0-1); EOSINOPHILS # (AUTO) 0.74 x10^3/uL (0-0.4); EOSINOPHILS % (AUTO) 9 % (1-7); LYMPHOCYTES # (AUTO) 2.26 x10^3/uL (1-3.4); LYMPHOCYTES % (AUTO) 28 % (22-44); MD NO; MEAN CORPUSCULAR HEMOGLOBIN 27.8 pg (27.5-34.5); MEAN CORPUSCULAR HGB CONC 33.1 g/dL (33.2-36.2); MONOCYTES % (AUTO) 10 % (2-9); NEUTROPHILS # (AUTO) 4.18 x10^3/uL (1.8-6.8); NEUTROPHILS % (AUTO) 52 % (42-75); PLATELET COUNT 199 x10^3/uL (130-400); RED CELL DISTRIBUTION WIDTH 19.3 % (9.4-14.8)
[2018-01-11 05:09] LABS: ALBUMIN 2.8 g/dL (3.4-5.0); ANION GAP 7 mmol/L (5-15); CALCIUM 7.7 mg/dL (8.5-10.1); CHLORIDE 111 mmol/L (98-107)
[2018-01-11 06:58] VITALS: BP 150/92
[2018-01-11] MEDS: ENOXAPARIN 40 MG/0.4 ML SQ SCH (09:00)
[2018-01-11] MEDS: POLYETHYLENE GLYCOL 17 GM PACKET PO SCH (09:00)
[2018-01-11] MEDS: CEFTAROLINE 600 MG in SODIUM CHLORIDE 0.9% 100 ML IV SCH ×2 (09:12→16:25)
[2018-01-11] MEDS: LOSARTAN 50MG TABLET PO SCH (09:13)
[2018-01-11 12:02] VITALS: BP 152/100
[2018-01-11] MEDS: FERROUS SULFATE 325 MG TABLET PO SCH (16:25)
[2018-01-11 19:16] VITALS: BP 151/88
[2018-01-12] MEDS: CEFTAROLINE 600 MG in SODIUM CHLORIDE 0.9% 100 ML IV SCH ×3 (00:03→16:10)
[2018-01-12 01:03] VITALS: BP 146/90
[2018-01-12] MEDS: DIPHENHYDRAMINE 25 MG CAPSULE PO PRN (04:44)
[2018-01-12] MEDS: IBUPROFEN 200 MG TABLET PO PRN (04:44)
[2018-01-12] MEDS: POLYETHYLENE GLYCOL 17 GM PACKET PO SCH (07:42)
[2018-01-12] MEDS: LOSARTAN 50MG TABLET PO SCH (07:42)
[2018-01-12] MEDS: ENOXAPARIN 40 MG/0.4 ML SQ SCH ×2 (07:43→16:10)
[2018-01-12 09:15] VITALS: BP 157/96
[2018-01-12 13:33] VITALS: BP 147/98
[2018-01-12] MEDS: FERROUS SULFATE 325 MG TABLET PO SCH (16:10)
[2018-01-12 19:34] VITALS: BP 153/88
[2018-01-13] MEDS: CEFTAROLINE 600 MG in SODIUM CHLORIDE 0.9% 100 ML IV SCH ×3 (00:09→17:10)
[2018-01-13 01:33] VITALS: BP 157/82
[2018-01-13 07:36] VITALS: BP 129/82
[2018-01-13] MEDS: LOSARTAN 50MG TABLET PO SCH (07:47)
[2018-01-13] MEDS: POLYETHYLENE GLYCOL 17 GM PACKET PO SCH (07:48)
[2018-01-13] MEDS: DIPHENHYDRAMINE 25 MG CAPSULE PO PRN (13:35)
[2018-01-13 15:26] VITALS: BP 154/94
[2018-01-13] MEDS: ENOXAPARIN 40 MG/0.4 ML SQ SCH (17:10)
[2018-01-13] MEDS: FERROUS SULFATE 325 MG TABLET PO SCH (17:10)
[2018-01-13 19:39] VITALS: BP 158/95
[2018-01-14] MEDS: CEFTAROLINE 600 MG in SODIUM CHLORIDE 0.9% 100 ML IV SCH ×3 (00:41→16:51)
[2018-01-14 03:47] VITALS: BP 156/76
[2018-01-14 05:59] LABS: CREATININE 0.78 mg/dL (0.7-1.3)
[2018-01-14 07:25] VITALS: BP 161/90
[2018-01-14] MEDS: POLYETHYLENE GLYCOL 17 GM PACKET PO SCH (09:00)
[2018-01-14] MEDS: LOSARTAN 50MG TABLET PO SCH (09:01)
[2018-01-14 13:14] VITALS: BP 156/98
[2018-01-14] MEDS: FERROUS SULFATE 325 MG TABLET PO SCH (16:40)
[2018-01-14] MEDS: ENOXAPARIN 40 MG/0.4 ML SQ SCH (16:40)
[2018-01-14 19:30] VITALS: BP 141/84
[2018-01-14] MEDS: DIPHENHYDRAMINE 25 MG CAPSULE PO PRN (20:05)
[2018-01-14 21:39] VITALS: BP 145/84
[2018-01-15 00:46] VITALS: BP 130/85
[2018-01-15] MEDS: CEFTAROLINE 600 MG in SODIUM CHLORIDE 0.9% 100 ML IV SCH ×3 (01:04→17:43)
[2018-01-15] MEDS ORDERED: FUROSEMIDE 20 MG/2 ML IV ONE (07:30)
[2018-01-15] MEDS: POLYETHYLENE GLYCOL 17 GM PACKET PO SCH (07:50)
[2018-01-15 08:36] LABS: BASOPHILS # (AUTO) 0.06 x10^3/uL (0-0.1); BASOPHILS % (AUTO) 1 % (0-1); EOSINOPHILS # (AUTO) 0.53 x10^3/uL (0-0.4); EOSINOPHILS % (AUTO) 7 % (1-7); LYMPHOCYTES # (AUTO) 1.96 x10^3/uL (1-3.4); LYMPHOCYTES % (AUTO) 26 % (22-44); MD NO; MEAN CORPUSCULAR HEMOGLOBIN 28.3 pg (27.5-34.5); MEAN CORPUSCULAR HGB CONC 33.4 g/dL (33.2-36.2); MEAN CORPUSCULAR VOLUME 84.5 fL (81-97); MEAN PLATELET VOLUME 7.9 fL (7.4-10.4); MONOCYTES # (AUTO) 0.74 x10^3/uL (0.2-0.8); MONOCYTES % (AUTO) 10 % (2-9); NEUTROPHILS # (AUTO) 4.23 x10^3/uL (1.8-6.8); NEUTROPHILS % (AUTO) 56 % (42-75); PLATELET COUNT 212 x10^3/uL (130-400); RED BLOOD COUNT 4.94 x10^6/uL (4.38-5.82); RED CELL DISTRIBUTION WIDTH 18.7 % (9.4-14.8)
[2018-01-15 08:37] LABS: ALBUMIN 2.7 g/dL (3.4-5.0); ANION GAP 5 mmol/L (5-15); CALCIUM 7.7 mg/dL (8.5-10.1); CHLORIDE 111 mmol/L (98-107); CREATININE 0.88 mg/dL (0.7-1.3)
[2018-01-15 10:17] VITALS: BP 147/90
[2018-01-15] MEDS: LOSARTAN 50MG TABLET PO SCH (11:51)
[2018-01-15 14:28] VITALS: BP 155/99
[2018-01-15] MEDS: ENOXAPARIN 40 MG/0.4 ML SQ SCH (17:43)
[2018-01-15] MEDS: FERROUS SULFATE 325 MG TABLET PO SCH (17:43)
[2018-01-15 19:38] VITALS: BP 140/90
[2018-01-16 01:00] VITALS: BP 122/80
[2018-01-16] MEDS: CEFTAROLINE 600 MG in SODIUM CHLORIDE 0.9% 100 ML IV SCH ×3 (05:00→21:37)
[2018-01-16] MEDS: IBUPROFEN 200 MG TABLET PO PRN (05:01)
[2018-01-16 07:48] LABS: HCT (SEDRATE) 41.1 % (39.2-51.8)
[2018-01-16 07:54] LABS: ALANINE AMINOTRANSFERASE 26 U/L (12-78); ALBUMIN 2.7 g/dL (3.4-5.0); ANION GAP 4 mmol/L (5-15); CALCIUM 7.6 mg/dL (8.5-10.1); CHLORIDE 111 mmol/L (98-107); CREATININE 0.81 mg/dL (0.7-1.3)
[2018-01-16 08:00] LABS: ALKALINE PHOSPHATASE 156 U/L (45-117); BILIRUBIN,TOTAL 0.4 mg/dL (0.2-1.0); C-REACTIVE PROTEIN, QUANT 0.51 mg/dL (0.02-0.49); TOTAL PROTEIN 7.1 g/dL (6.4-8.2)
[2018-01-16 08:46] VITALS: BP 138/90
[2018-01-16] MEDS: POLYETHYLENE GLYCOL 17 GM PACKET PO SCH (09:00)
[2018-01-16] MEDS: LOSARTAN 50MG TABLET PO SCH (09:45)
[2018-01-16 14:00] VITALS: BP 140/85
[2018-01-16] MEDS: ENOXAPARIN 40 MG/0.4 ML SQ SCH (17:00)
[2018-01-16] MEDS: FERROUS SULFATE 325 MG TABLET PO SCH (17:00)
[2018-01-16 19:22] VITALS: BP 156/93
[2018-01-17 03:08] VITALS: BP 174/97
[2018-01-17 04:37] VITALS: BP 154/97
[2018-01-17 04:46] LABS: CREATININE 0.93 mg/dL (0.7-1.3)
[2018-01-17] MEDS: CEFTAROLINE 600 MG in SODIUM CHLORIDE 0.9% 100 ML IV SCH ×3 (05:19→20:46)
[2018-01-17] MEDS: POLYETHYLENE GLYCOL 17 GM PACKET PO SCH (07:12)
[2018-01-17 09:03] VITALS: BP 170/89
[2018-01-17] MEDS: LOSARTAN 50MG TABLET PO SCH (09:33)
[2018-01-17] MEDS: ACETAMINOPHEN 500 MG TABLET PO PRN ×2 (13:20→20:46)
[2018-01-17 15:03] VITALS: BP 153/90
[2018-01-17] MEDS: FERROUS SULFATE 325 MG TABLET PO SCH (17:00)
[2018-01-17] MEDS: ENOXAPARIN 40 MG/0.4 ML SQ SCH (17:00)
[2018-01-17 19:58] VITALS: BP 158/92
[2018-01-17] MEDS: DIPHENHYDRAMINE 25 MG CAPSULE PO PRN (20:46)
[2018-01-18 03:40] VITALS: BP 173/107
[2018-01-18 05:12] VITALS: BP 144/89
[2018-01-18] MEDS: CEFTAROLINE 600 MG in SODIUM CHLORIDE 0.9% 100 ML IV SCH ×3 (05:12→21:27)
[2018-01-18 08:36] VITALS: BP 168/103
[2018-01-18] MEDS: POLYETHYLENE GLYCOL 17 GM PACKET PO SCH (09:00)
[2018-01-18] MEDS: LOSARTAN 50MG TABLET PO SCH (09:58)
[2018-01-18 16:15] VITALS: BP 166/89
[2018-01-18] MEDS: ENOXAPARIN 40 MG/0.4 ML SQ SCH (17:00)
[2018-01-18] MEDS: FERROUS SULFATE 325 MG TABLET PO SCH (18:39)
[2018-01-18] MEDS: DIPHENHYDRAMINE 25 MG CAPSULE PO PRN (18:39)
[2018-01-18 19:19] VITALS: BP 164/93
[2018-01-19] MEDS: CEFTAROLINE 600 MG in SODIUM CHLORIDE 0.9% 100 ML IV SCH ×3 (05:19→21:26)
[2018-01-19 09:03] VITALS: BP 158/100
[2018-01-19] MEDS: LOSARTAN 50MG TABLET PO SCH (09:31)
[2018-01-19] MEDS: POLYETHYLENE GLYCOL 17 GM PACKET PO SCH (09:31)
[2018-01-19 13:04] VITALS: BP 178/97
[2018-01-19] MEDS: DIPHENHYDRAMINE 25 MG CAPSULE PO PRN (15:13)
[2018-01-19] MEDS: ENOXAPARIN 40 MG/0.4 ML SQ SCH (17:00)
[2018-01-19] MEDS: FERROUS SULFATE 325 MG TABLET PO SCH (18:10)
[2018-01-19 21:31] VITALS: BP 152/98
[2018-01-20 00:53] VITALS: BP 167/101
[2018-01-20] MEDS: CEFTAROLINE 600 MG in SODIUM CHLORIDE 0.9% 100 ML IV SCH ×3 (05:30→21:50)
[2018-01-20 06:35] LABS: CREATININE 0.84 mg/dL (0.7-1.3)
[2018-01-20 07:14] VITALS: BP 154/94
[2018-01-20] MEDS: LOSARTAN 50MG TABLET PO SCH (08:19)
[2018-01-20] MEDS: POLYETHYLENE GLYCOL 17 GM PACKET PO SCH (08:19)
[2018-01-20 14:07] VITALS: BP 152/86
[2018-01-20] MEDS: ENOXAPARIN 40 MG/0.4 ML SQ SCH (17:00)
[2018-01-20] MEDS: FERROUS SULFATE 325 MG TABLET PO SCH (17:00)
[2018-01-20 18:44] VITALS: BP 158/72
[2018-01-20] MEDS: DIPHENHYDRAMINE 25 MG CAPSULE PO PRN (22:40)
[2018-01-21 03:15] VITALS: BP_SYST 139; BP_SYST 167; BP_DIAS 112; BP_DIAS 82
[2018-01-21] MEDS: CEFTAROLINE 600 MG in SODIUM CHLORIDE 0.9% 100 ML IV SCH ×3 (05:08→20:17)
[2018-01-21 08:16] VITALS: BP 155/96
[2018-01-21] MEDS: POLYETHYLENE GLYCOL 17 GM PACKET PO SCH (08:18)
[2018-01-21] MEDS: LOSARTAN 50MG TABLET PO SCH (08:23)
[2018-01-21 15:46] VITALS: BP 150/84
[2018-01-21] MEDS: ENOXAPARIN 40 MG/0.4 ML SQ SCH (16:07)
[2018-01-21] MEDS: FERROUS SULFATE 325 MG TABLET PO SCH (16:13)
[2018-01-21] MEDS: DIPHENHYDRAMINE 25 MG CAPSULE PO PRN (16:13)
[2018-01-21 16:30] VITALS: BP 157/93
[2018-01-21 20:25] VITALS: BP 165/100
[2018-01-22 03:20] VITALS: BP 153/89
[2018-01-22] MEDS: CEFTAROLINE 600 MG in SODIUM CHLORIDE 0.9% 100 ML IV SCH ×2 (05:31→13:00)
[2018-01-22 07:18] VITALS: BP 149/95
[2018-01-22] MEDS: POLYETHYLENE GLYCOL 17 GM PACKET PO SCH (09:00)
[2018-01-22] MEDS ORDERED: FERR-51 PO (09:26)
[2018-01-22] MEDS ORDERED: LOSA50TA2 PO (09:26)
[2018-01-22] MEDS: LOSARTAN 50MG TABLET PO SCH (11:01)
[2018-01-22 12:39] VITALS: BP 151/90
[2018-01-22] MEDS ORDERED: CEFTAROLINE 600 MG in SODIUM CHLORIDE 0.9% 100 ML IV SCH (17:00)
[2018-01-22] MEDS: ENOXAPARIN 40 MG/0.4 ML SQ SCH (17:00)
[2018-01-22] MEDS: FERROUS SULFATE 325 MG TABLET PO SCH (17:36)
[2018-01-22 19:25] VITALS: BP 163/93
[2018-01-22] MEDS: DIPHENHYDRAMINE 25 MG CAPSULE PO PRN (22:54)
[2018-01-23 01:00] VITALS: BP 177/101
[2018-01-23] MEDS: hydrALAzine 20 MG/ML, 1ML IV PRN (01:21)
[2018-01-23 05:44] LABS: HCT (SEDRATE) 41.1 % (39.2-51.8)
[2018-01-23 05:47] LABS: CHLORIDE 108 mmol/L (98-107)
[2018-01-23 05:54] LABS: BASOPHILS # (AUTO) 0.07 x10^3/uL (0-0.1); BASOPHILS % (AUTO) 1 % (0-1); EOSINOPHILS # (AUTO) 0.62 x10^3/uL (0-0.4); EOSINOPHILS % (AUTO) 7 % (1-7); LYMPHOCYTES # (AUTO) 2.39 x10^3/uL (1-3.4); LYMPHOCYTES % (AUTO) 25 % (22-44); MD NO; MEAN CORPUSCULAR VOLUME 84.9 fL (81-97); MEAN PLATELET VOLUME 8.2 fL (7.4-10.4); MONOCYTES # (AUTO) 0.79 x10^3/uL (0.2-0.8); MONOCYTES % (AUTO) 8 % (2-9); NEUTROPHILS # (AUTO) 5.62 x10^3/uL (1.8-6.8); NEUTROPHILS % (AUTO) 59 % (42-75); PLATELET COUNT 152 x10^3/uL (130-400); RED BLOOD COUNT 4.94 x10^6/uL (4.38-5.82); RED CELL DISTRIBUTION WIDTH 17.8 % (9.4-14.8)
[2018-01-23 05:58] LABS: ALANINE AMINOTRANSFERASE 22 U/L (12-78); ALBUMIN 2.8 g/dL (3.4-5.0); ALKALINE PHOSPHATASE 125 U/L (45-117); ANION GAP 7 mmol/L (5-15); BILIRUBIN,TOTAL 0.6 mg/dL (0.2-1.0); C-REACTIVE PROTEIN, QUANT 0.64 mg/dL (0.02-0.49); CALCIUM 8.2 mg/dL (8.5-10.1); CREATININE 0.72 mg/dL (0.7-1.3); TOTAL PROTEIN 7.2 g/dL (6.4-8.2)
[2018-01-23] MEDS: LOSARTAN 50MG TABLET PO SCH (08:15)
[2018-01-23] MEDS: POLYETHYLENE GLYCOL 17 GM PACKET PO SCH (08:15)
[2018-01-23 08:37] VITALS: BP 162/94
[2018-01-23 13:30] VITALS: BP 137/89
[2018-01-23] MEDS: ENOXAPARIN 40 MG/0.4 ML SQ SCH (17:00)
[2018-01-23] MEDS: FERROUS SULFATE 325 MG TABLET PO SCH (18:32)
[2018-01-23 19:01] VITALS: BP 156/88
[2018-01-23] MEDS: ACETAMINOPHEN 500 MG TABLET PO PRN (20:04)
[2018-01-24] MEDS: DIPHENHYDRAMINE 25 MG CAPSULE PO PRN (00:06)
[2018-01-24 01:10] VITALS: BP 169/86
[2018-01-24 08:29] VITALS: BP 167/94
[2018-01-24] MEDS: POLYETHYLENE GLYCOL 17 GM PACKET PO SCH (09:00)
[2018-01-24] MEDS: LOSARTAN 50MG TABLET PO SCH (09:50)
[2018-01-24 15:53] VITALS: BP 159/94
[2018-01-24] MEDS: FERROUS SULFATE 325 MG TABLET PO SCH (17:00)
[2018-01-24] MEDS: ENOXAPARIN 40 MG/0.4 ML SQ SCH (17:00)
[2018-01-24 19:04] VITALS: BP 162/85
[2018-01-25 04:58] VITALS: BP 168/102
[2018-01-25 08:04] VITALS: BP 181/97
[2018-01-25] MEDS: LOSARTAN 50MG TABLET PO SCH (08:56)
[2018-01-25] MEDS: POLYETHYLENE GLYCOL 17 GM PACKET PO SCH (08:57)
[2018-01-25] MEDS: AMLODIPINE 5 MG TABLET PO SCH ×2 (12:07→19:53)
[2018-01-25] MEDS: hydrALAzine 20 MG/ML, 1ML IV PRN (13:25)
[2018-01-25 13:30] VITALS: BP 179/109
[2018-01-25 15:05] VITALS: BP 169/96
[2018-01-25] MEDS: FERROUS SULFATE 325 MG TABLET PO SCH (16:49)
[2018-01-25] MEDS: DIPHENHYDRAMINE 25 MG CAPSULE PO PRN ×2 (16:49→21:25)
[2018-01-25] MEDS: ENOXAPARIN 40 MG/0.4 ML SQ SCH (17:00)
[2018-01-25] MEDS: MUPIROCIN OINT 2%, 22GM TP SCH (17:33)
[2018-01-25 19:49] VITALS: BP 163/104
[2018-01-26 00:05] VITALS: BP 151/97
[2018-01-26] MEDS: MUPIROCIN OINT 2%, 22GM TP SCH ×2 (05:42→19:38)
[2018-01-26 07:42] VITALS: BP 169/98
[2018-01-26] MEDS: POLYETHYLENE GLYCOL 17 GM PACKET PO SCH ×2 (09:00→10:40)
[2018-01-26] MEDS: AMLODIPINE 5 MG TABLET PO SCH ×2 (10:38→19:38)
[2018-01-26] MEDS: LOSARTAN 50MG TABLET PO SCH (10:38)
[2018-01-26] MEDS: DIPHENHYDRAMINE 25 MG CAPSULE PO PRN (10:38)
[2018-01-26 14:21] VITALS: BP 158/89
[2018-01-26] MEDS: ENOXAPARIN 40 MG/0.4 ML SQ SCH (17:00)
[2018-01-26] MEDS: FERROUS SULFATE 325 MG TABLET PO SCH (18:32)
[2018-01-26 19:13] VITALS: BP 174/119
[2018-01-27 01:46] VITALS: BP 157/95
[2018-01-27] MEDS: DIPHENHYDRAMINE 25 MG CAPSULE PO PRN ×2 (02:42→13:54)
[2018-01-27] MEDS: MUPIROCIN OINT 2%, 22GM TP SCH (05:51)
[2018-01-27] MEDS ORDERED: MUPI22OI2 TP (07:37)
[2018-01-27] MEDS: POLYETHYLENE GLYCOL 17 GM PACKET PO SCH (09:35)
[2018-01-27] MEDS: AMLODIPINE 5 MG TABLET PO SCH (09:35)
[2018-01-27] MEDS: LOSARTAN 50MG TABLET PO SCH (09:35)
[2018-01-27 14:15] VITALS: BP 158/83
== END 2018-01-27 17:49 | disposition left against medical advice (07) | DRG 871 ==
LOC: ED 04:38 → EDIP 07:58 → 4NOR 10:56 → 3NE 01-14 20:46
PROVIDERS: ADMIT Hospitalist; ATTEND Internal Medicine
PROC: 02HV33Z Insertion of Infusion Device into Superior Vena Cava, Percutaneous Approach (ICD-10-PCS; principal; 2017-12-11)
PROC: B548ZZA Ultrasonography of Superior Vena Cava, Guidance (ICD-10-PCS; 2017-12-11)
DX: A41.9 Sepsis, unspecified organism (principal); E43 Unspecified severe protein-calorie malnutrition; M86.651 Other chronic osteomyelitis, right thigh; L03.116 Cellulitis of left lower limb; L03.317 Cellulitis of buttock; M86.652 Other chronic osteomyelitis, left thigh; E87.1 Hypo-osmolality and hyponatremia; J98.11 Atelectasis; L03.115 Cellulitis of right lower limb; M00.9 Pyogenic arthritis, unspecified; M86.661 Other chronic osteomyelitis, right tibia and fibula; Q76.0 Spina bifida occulta; N49.2 Inflammatory disorders of scrotum; Z88.0 Allergy status to penicillin; Z88.8 Allergy status to other drugs, medicaments and biological substances; Z68.37 Body mass index [BMI] 37.0-37.9, adult; D50.9 Iron deficiency anemia, unspecified; E11.69 Type 2 diabetes mellitus with other specified complication; E66.01 Morbid (severe) obesity due to excess calories; H91.90 Unspecified hearing loss, unspecified ear; H93.19 Tinnitus, unspecified ear; I11.0 Hypertensive heart disease with heart failure; I50.9 Heart failure, unspecified; K08.89 Other specified disorders of teeth and supporting structures; K11.20 Sialoadenitis, unspecified; L29.9 Pruritus, unspecified; L89.319 Pressure ulcer of right buttock, unspecified stage; N31.9 Neuromuscular dysfunction of bladder, unspecified; N32.89 Other specified disorders of bladder; Z74.01 Bed confinement status; Z79.899 Other long term (current) drug therapy; Z82.1 Family history of blindness and visual loss; Z86.14 Personal history of Methicillin resistant Staphylococcus aureus infection; Z89.511 Acquired absence of right leg below knee; Z91.19 Patient's noncompliance with other medical treatment and regimen; Z53.29 Procedure and treatment not carried out because of patient's decision for other reasons; Z96.643 Presence of artificial hip joint, bilateral; Z98.1 Arthrodesis status; Z99.3 Dependence on wheelchair
CPT/HCPCS: 36415; 36569; 71045; 72193; 76937; 77001; 80048; 80053; 82040; 82550; 82565; 83540; 83550; 83605; 83735; 84100; 84145; 85025; 85651; 86140; 87040; 96374; 96375; J0712; J1644; J1650; J1756; J3370; J3490; Q9967; 92523-GN; C1751; J0360; J1940; J3475; J7030; J7050; Q0163

== ENCOUNTER → 2018-02-10 | Outpatient (CLI) | payer OTHER ==
[~2018-02-10] MED LIST changes: +CEFT600V IV; +FERR-51 PO; +LOSA50TA2 PO; +MUPI22OI2 TP; +POTA20TA6 PO
== END | disposition home or self-care (01) ==
LOC: WOUND 14:59
PROVIDERS: ATTEND Family Medicine
DX: T87.89 Other complications of amputation stump (principal); E11.622 Type 2 diabetes mellitus with other skin ulcer; L89.899 Pressure ulcer of other site, unspecified stage; L89.629 Pressure ulcer of left heel, unspecified stage; L97.211 Non-pressure chronic ulcer of right calf limited to breakdown of skin; E11.621 Type 2 diabetes mellitus with foot ulcer; L97.421 Non-pressure chronic ulcer of left heel and midfoot limited to breakdown of skin; Q05.8 Sacral spina bifida without hydrocephalus; I10 Essential (primary) hypertension; E66.01 Morbid (severe) obesity due to excess calories; I11.0 Hypertensive heart disease with heart failure; I50.9 Heart failure, unspecified; H91.90 Unspecified hearing loss, unspecified ear; E11.69 Type 2 diabetes mellitus with other specified complication; M86.652 Other chronic osteomyelitis, left thigh; M86.651 Other chronic osteomyelitis, right thigh; M86.661 Other chronic osteomyelitis, right tibia and fibula; M00.9 Pyogenic arthritis, unspecified; Z96.643 Presence of artificial hip joint, bilateral; Z68.43 Body mass index [BMI] 50.0-59.9, adult; Y83.5 Amputation of limb(s) as the cause of abnormal reaction of the patient, or of later complication, without mention of misadventure at the time of the procedure
CPT/HCPCS: 97597; 97598

== ENCOUNTER → 2018-02-17 | Outpatient (CLI) | payer OTHER | END | disposition home or self-care (01) | LOC: WOUND 10:30 | PROVIDERS: ATTEND Family Medicine | DX: T87.89 Other complications of amputation stump (principal); E11.622 Type 2 diabetes mellitus with other skin ulcer; I87.312 Chronic venous hypertension (idiopathic) with ulcer of left lower extremity; L97.821 Non-pressure chronic ulcer of other part of left lower leg limited to breakdown of skin; L97.218 Non-pressure chronic ulcer of right calf with other specified severity; L89.893 Pressure ulcer of other site, stage 3; L89.620 Pressure ulcer of left heel, unstageable; E11.621 Type 2 diabetes mellitus with foot ulcer; L97.421 Non-pressure chronic ulcer of left heel and midfoot limited to breakdown of skin; L97.521 Non-pressure chronic ulcer of other part of left foot limited to breakdown of skin; Q05.8 Sacral spina bifida without hydrocephalus; E66.01 Morbid (severe) obesity due to excess calories; I11.0 Hypertensive heart disease with heart failure; I50.9 Heart failure, unspecified; E11.69 Type 2 diabetes mellitus with other specified complication; M86.652 Other chronic osteomyelitis, left thigh; M86.651 Other chronic osteomyelitis, right thigh; M86.661 Other chronic osteomyelitis, right tibia and fibula; M00.9 Pyogenic arthritis, unspecified; H91.90 Unspecified hearing loss, unspecified ear; Z89.511 Acquired absence of right leg below knee; Z96.643 Presence of artificial hip joint, bilateral; Z68.43 Body mass index [BMI] 50.0-59.9, adult; Y83.5 Amputation of limb(s) as the cause of abnormal reaction of the patient, or of later complication, without mention of misadventure at the time of the procedure | CPT/HCPCS: 11042; 11045; 97597; 97598 ==

== ENCOUNTER 2018-05-11 17:45 | Emergency (ER) | payer OTHER ==
[~2018-05-11] VITALS: Ht 121.9 cm; Wt 90.0 kg
[2018-05-11] MEDS ORDERED: SODIUM CHLORIDE FLUSH 10ML SYR IVF ONE (18:30)
[2018-05-11 18:59] LABS: BASOPHILS # (AUTO) 0.02 x10^3/uL (0-0.1); BASOPHILS % (AUTO) 0 % (0-1); EOSINOPHILS # (AUTO) 0.15 x10^3/uL (0-0.4); EOSINOPHILS % (AUTO) 1 % (1-7); LYMPHOCYTES % (AUTO) 14 % (22-44); MD NO; MEAN CORPUSCULAR HEMOGLOBIN 27.2 pg (27.5-34.5); MEAN CORPUSCULAR HGB CONC 32.8 g/dL (33.2-36.2); MEAN CORPUSCULAR VOLUME 82.9 fL (81-97); MEAN PLATELET VOLUME 7.8 fL (7.4-10.4); MONOCYTES # (AUTO) 0.71 x10^3/uL (0.2-0.8); MONOCYTES % (AUTO) 5 % (2-9); NEUTROPHILS # (AUTO) 11.85 x10^3/uL (1.8-6.8); NEUTROPHILS % (AUTO) 80 % (42-75); PLATELET COUNT 364 x10^3/uL (130-400); RED BLOOD COUNT 5.83 x10^6/uL (4.38-5.82); RED CELL DISTRIBUTION WIDTH 16.2 % (9.4-14.8)
[2018-05-11 19:11] LABS: ANION GAP 9 mmol/L (5-15); CALCIUM 8.6 mg/dL (8.5-10.1); CHLORIDE 108 mmol/L (98-107)
[2018-05-11 19:14] LABS: ALANINE AMINOTRANSFERASE 12 U/L (12-78); ALKALINE PHOSPHATASE 144 U/L (45-117); BILIRUBIN,TOTAL 0.6 mg/dL (0.2-1.0); CREATININE 1.01 mg/dL (0.7-1.3); TOTAL PROTEIN 8.7 g/dL (6.4-8.2)
[2018-05-11] MEDS ORDERED: BACITRACIN ZINC OINT 500U/GM, 0.9 GM ONE (23:22)
[2018-05-12 00:04] VITALS: BP 160/97
== END 2018-05-12 00:07 | disposition home or self-care (01) ==
LOC: ED 21:04
DX: L89.629 Pressure ulcer of left heel, unspecified stage (principal); E11.621 Type 2 diabetes mellitus with foot ulcer; L97.421 Non-pressure chronic ulcer of left heel and midfoot limited to breakdown of skin; I50.9 Heart failure, unspecified; I11.0 Hypertensive heart disease with heart failure
CPT/HCPCS: 36415; 80053; 83605; 85025; 87040; 87070; 87075; 87077; 87147; 87186; 87205; 99285

== ENCOUNTER 2019-08-05 21:28 | Inpatient (IN) | payer MEDICARE, OTHER ==
[~2019-08-05] VITALS: Ht 162.6 cm; Wt 92.1 kg
--- NOTE | 2019-08-05 21:31 | NUR ---
PT IN [facility] AT THIS TIME. REPORT RECEIVED FROM EMS. PT FELL X7 DAYS AGO, FOUND SITTING IN HIS OWN FECES AND URINE. EMS REMOVED PT SOCK AND FOUND NECROTIC FOOT, X1 TOE HAD FALLEN OFF IN SOCK. REPORTS PT HAS MULTIPLE ULCERS. EMS REPORTS PT BS 107. PT TO BE EVALUATED BY THIS RN AFTER DECON.
--- NOTE | 2019-08-05 22:03 | NUR ---
ASSISTED WITH DECON. PT WITH MULTIPLE LARGE WOUNDS TO LOWER POSTERIOR TORSO AND LEFT LEG. WOUND CAMERA NOT WORKING. ORDER PLACED FOR WOUND CARE PER PROTOCOL.
[2019-08-05] MEDS ORDERED: PIPERACILLIN/TAZO/PMX 3.375GM 50 ML ONE (22:10)
[2019-08-05] MEDS ORDERED: VANCOMYCIN 1,500 MG in SODIUM CHLORIDE 0.9% 250 ML IV ONE (22:30)
[2019-08-05] MEDS ORDERED: VANCOMYCIN PER PHARMACY MC ONE (22:30)
[2019-08-05] MEDS ORDERED: PIPERACILLIN/TAZO/PMX 3.375GM 50 ML IVPB ONE ×2 (22:30→23:30)
[2019-08-05] MEDS ORDERED: SODIUM CHLORIDE 0.9% 1,000ML IVBOLUS ONE (22:30)
--- NOTE | 2019-08-05 22:34 | NUR ---
PT REFUSED SECOND SET OF BLOOD CULTURES AND LACTATE BLOOD DRAW. DR. LUCIANO NOTIFIED.
--- NOTE | 2019-08-05 22:34 | NUR ---
DR. LUCIANO UPDATED ON PT REFUSING SECOND SET OF BLOOD CULTURES AND LACTIC ACID. DR. LUCIANO STATED PT TO STILL RECEIVE ABX WITHOUT SECOND SET.
--- NOTE | 2019-08-05 22:35 | NUR ---
CALLED PHARMACY ABOUT PROVIDING ZOSYN ABX TO PT.
[2019-08-05 22:38] LABS: MEAN CORPUSCULAR HEMOGLOBIN 25.5 pg (27.5-34.5); MEAN CORPUSCULAR HGB CONC 31.3 g/dL (33.2-36.2); MEAN CORPUSCULAR VOLUME 81.5 fL (81-97); MEAN PLATELET VOLUME 7.5 fL (7.4-10.4); PLATELET COUNT 475 x10^3/uL (130-400); RED BLOOD COUNT 5.67 x10^6/uL (4.38-5.82); RED CELL DISTRIBUTION WIDTH 18.2 % (9.4-14.8)
[2019-08-05 22:43] LABS: MD YES
[2019-08-05 22:50] LABS: ALBUMIN 2.5 g/dL (3.4-5.0); ANION GAP 9 mmol/L (5-15); CALCIUM 8.8 mg/dL (8.5-10.1); CHLORIDE 108 mmol/L (98-107); CREATININE 0.89 mg/dL (0.7-1.3)
--- NOTE | 2019-08-05 22:52 | NUR ---
PT MEDICATED PER SEP. PT UPDATED ON POC.
[2019-08-05 22:54] LABS: <PLATELET ESTIMATE> INCREASED; <PLT MORPHOLOGY> NORMAL PLT MORPH; <RBC MORPHOLOGY> NORMAL; LYMPH#(MANUAL) 2.51 x10^3/uL (1-3.4); LYMPHS% (MANUAL) 11 % (22-44); MONOS#(MANUAL) 0.46 x10^3/uL (0.3-2.7); MONOS% (MANUAL) 2 % (2-9); SEG#(MANUAL) 19.84 x10^3/uL (1.8-6.8); SEGS% (MANUAL) 87 % (42-75)
[2019-08-05] MEDS ORDERED: MORPHINE SULFATE 4 MG/ML, 1ML ONE (23:29)
[2019-08-05] MEDS ORDERED: ONDANSETRON 2MG/ML, 2ML ONE (23:29)
[2019-08-05] MEDS ORDERED: ONDANSETRON 2MG/ML, 2ML IVPush ONE (23:30)
[2019-08-05] MEDS ORDERED: MORPHINE SULFATE 4 MG/ML, 1ML IVPush PRN (23:30)
--- NOTE | 2019-08-05 23:50 | NUR ---
PT PROVIDED MEAL UPON REQUEST TO BE NPO AT MIDNIGHT.
[2019-08-06] MEDS ORDERED: POTASSIUM CHLORIDE 20 MEQ TAB.ER.PRT PO ONE (00:30)
[2019-08-06] MEDS: HEPARIN 5,000 UNITS/ML, 1ML SQ SCH ×3 (00:30→15:33)
[2019-08-06] MEDS ORDERED: ONDANSETRON 2MG/ML, 2ML IVPush PRN (00:30)
[2019-08-06] MEDS ORDERED: ACETAMINOPHEN 325 MG TABLET PO PRN (00:30)
[2019-08-06] MEDS ORDERED: VANCOMYCIN PER PHARMACY MC PRN (00:30)
[2019-08-06] MEDS ORDERED: BISACODYL 10 MG SUPP PR PRN (00:30)
--- NOTE | 2019-08-06 00:39 | NUR ---
FIRST ATTEMPT TO CALL REPORT.
--- NOTE | 2019-08-06 00:43 | NUR ---
PT RESTING ON [place]. PT UPDATED ON POC. ALL MONITORING IN PLACE, CALL LIGHT WITHIN REACH, ALL SAFETY MEASURES IN PLACE.
--- NOTE | 2019-08-06 00:54 | NUR ---
REPORT GIVEN TO RK VARGAS.
[2019-08-06] MEDS: SODIUM CHLORIDE 0.9% 1,000 ML IV SCH ×2 (03:07→18:12)
[2019-08-06] MEDS: MEROPENEM 1 GM in SODIUM CHLORIDE 0.9% 100 ML IV SCH ×2 (03:20→11:17)
[2019-08-06] MEDS: morphine SULFATE 10 MG/ML, 1ML IVPush PRN ×3 (03:53→21:50)
[2019-08-06] MEDS ORDERED: PHARMACOKINETIC CONSULTATION MC ONE (05:00)
[2019-08-06] MEDS ORDERED: PHARMACOKINETIC MONITORING MC PRN (05:00)
[2019-08-06 05:32] VITALS: BP 145/81
[2019-08-06 06:53] LABS: MEAN CORPUSCULAR HEMOGLOBIN 25.4 pg (27.5-34.5); MEAN CORPUSCULAR HGB CONC 31.2 g/dL (33.2-36.2); MEAN CORPUSCULAR VOLUME 81.6 fL (81-97); MEAN PLATELET VOLUME 7.5 fL (7.4-10.4); PLATELET COUNT 416 x10^3/uL (130-400); RED BLOOD COUNT 5.13 x10^6/uL (4.38-5.82); RED CELL DISTRIBUTION WIDTH 18.1 % (9.4-14.8)
[2019-08-06 06:55] VITALS: BP 136/90
[2019-08-06 07:03] LABS: ALANINE AMINOTRANSFERASE 10 U/L (12-78); ALBUMIN 2.2 g/dL (3.4-5.0); ANION GAP 5 mmol/L (5-15); CALCIUM 8.2 mg/dL (8.5-10.1); CREATININE 0.79 mg/dL (0.7-1.3)
[2019-08-06 07:05] LABS: ALKALINE PHOSPHATASE 119 U/L (45-117); BILIRUBIN,TOTAL 0.7 mg/dL (0.2-1.0); TOTAL PROTEIN 7.2 g/dL (6.4-8.2)
[2019-08-06 07:24] LABS: CHLORIDE 113 mmol/L (98-107)
[2019-08-06 07:56] LABS: BASOPHILS # (AUTO) 0.06 x10^3/uL (0-0.1); BASOPHILS % (AUTO) 0 % (0-1); EOSINOPHILS # (AUTO) 0.18 x10^3/uL (0-0.4); EOSINOPHILS % (AUTO) 1 % (1-7); LYMPHOCYTES # (AUTO) 1.57 x10^3/uL (1-3.4); LYMPHOCYTES % (AUTO) 8 % (22-44); MD SCAN; MONOCYTES # (AUTO) 0.29 x10^3/uL (0.2-0.8); MONOCYTES % (AUTO) 2 % (2-9); NEUTROPHILS # (AUTO) 17.82 x10^3/uL (1.8-6.8); NEUTROPHILS % (AUTO) 90 % (42-75)
[2019-08-06] MEDS ORDERED: DIPHENHYDRAMINE 25 MG CAPSULE ONE (09:46)
[2019-08-06] MEDS: LOSARTAN 50MG TABLET PO SCH (09:50)
[2019-08-06] MEDS ORDERED: DIPHENHYDRAMINE 25 MG CAPSULE PO PRN (10:00)
[2019-08-06 12:25] VITALS: BP 126/79
[2019-08-06] MEDS ORDERED: VANCOMYCIN 1,500 MG in SODIUM CHLORIDE 0.9% 250 ML IV SCH (17:00)
[2019-08-06] MEDS ORDERED: GADOTERATE 10 MMOL/20 ML SYR ONE (17:05)
[2019-08-06 19:17] VITALS: BP 96/61
[2019-08-06] MEDS: CEFTAROLINE 400 MG in SODIUM CHLORIDE 0.9% 100 ML IV SCH (21:22)
[2019-08-07] MEDS: HEPARIN 5,000 UNITS/ML, 1ML SQ SCH ×3 (00:30→16:30)
[2019-08-07 01:22] VITALS: BP 109/65
[2019-08-07] MEDS: SODIUM CHLORIDE 0.9% 1,000 ML IV SCH ×2 (05:25→14:00)
[2019-08-07 07:28] LABS: ANION GAP 6 mmol/L (5-15); CALCIUM 7.1 mg/dL (8.5-10.1); CHLORIDE 114 mmol/L (98-107); CREATININE 0.99 mg/dL (0.7-1.3)
[2019-08-07 07:29] LABS: MEAN CORPUSCULAR HEMOGLOBIN 25.8 pg (27.5-34.5); MEAN CORPUSCULAR HGB CONC 31.2 g/dL (33.2-36.2); MEAN CORPUSCULAR VOLUME 82.9 fL (81-97); MEAN PLATELET VOLUME 7.4 fL (7.4-10.4); PLATELET COUNT 348 x10^3/uL (130-400); RED BLOOD COUNT 4.26 x10^6/uL (4.38-5.82); RED CELL DISTRIBUTION WIDTH 18.5 % (9.4-14.8)
[2019-08-07 07:48] VITALS: BP 113/66
[2019-08-07 08:20] LABS: MD YES
[2019-08-07 08:22] LABS: <PLATELET ESTIMATE> ADEQUATE; <PLT MORPHOLOGY> NORMAL PLT MORPH; <RBC MORPHOLOGY> NORMAL; BAND#(MANUAL) 0.19 x10^3/uL; BANDS%(MANUAL) 1 % (0-7); EOS#(MANUAL) 0.38 x10^3/uL (0.0-0.4); EOS% (MANUAL) 2 % (1-7); LYMPH#(MANUAL) 1.32 x10^3/uL (1-3.4); LYMPHS% (MANUAL) 7 % (22-44); MONOS#(MANUAL) 0.19 x10^3/uL (0.3-2.7); MONOS% (MANUAL) 1 % (2-9); SEG#(MANUAL) 16.73 x10^3/uL (1.8-6.8); SEGS% (MANUAL) 89 % (42-75)
[2019-08-07] MEDS: LOSARTAN 50MG TABLET PO SCH (09:09)
[2019-08-07] MEDS: CEFTAROLINE 400 MG in SODIUM CHLORIDE 0.9% 100 ML IV SCH ×2 (09:10→22:38)
[2019-08-07 13:23] VITALS: BP 113/67
[2019-08-07 19:48] VITALS: BP 134/78
[2019-08-08] MEDS: HEPARIN 5,000 UNITS/ML, 1ML SQ SCH ×3 (00:30→15:54)
[2019-08-08 00:55] VITALS: BP 109/66
[2019-08-08] MEDS: CEFTAROLINE 400 MG in SODIUM CHLORIDE 0.9% 100 ML IV SCH ×2 (08:09→16:57)
[2019-08-08] MEDS: SODIUM CHLORIDE 0.9% 1,000 ML IV SCH ×2 (08:12)
[2019-08-08 08:16] VITALS: BP 136/76
[2019-08-08] MEDS: LOSARTAN 50MG TABLET PO SCH (10:22)
[2019-08-08] MEDS ORDERED: LORazepam 0.5MG TABLET PO ONE (11:00)
[2019-08-08 15:00] VITALS: BP 159/89
[2019-08-08] MEDS ORDERED: LORazepam 0.5MG TABLET ONE (15:44)
[2019-08-08 19:06] VITALS: BP 154/91
[2019-08-09] MEDS: HEPARIN 5,000 UNITS/ML, 1ML SQ SCH ×3 (00:30→16:30)
[2019-08-09 01:16] VITALS: BP 163/96
[2019-08-09] MEDS ORDERED: DIPHENHYDRAMINE 25 MG CAPSULE PO ONE (02:00)
[2019-08-09] MEDS: CEFTAROLINE 400 MG in SODIUM CHLORIDE 0.9% 100 ML IV SCH ×2 (04:45→17:27)
[2019-08-09 05:25] LABS: BASOPHILS # (AUTO) 0.05 x10^3/uL (0-0.1); BASOPHILS % (AUTO) 1 % (0-1); EOSINOPHILS # (AUTO) 0.41 x10^3/uL (0-0.4); EOSINOPHILS % (AUTO) 4 % (1-7); LYMPHOCYTES # (AUTO) 1.73 x10^3/uL (1-3.4); LYMPHOCYTES % (AUTO) 18 % (22-44); MD NO; MEAN CORPUSCULAR HEMOGLOBIN 25.8 pg (27.5-34.5); MEAN CORPUSCULAR HGB CONC 31.7 g/dL (33.2-36.2); MEAN CORPUSCULAR VOLUME 81.4 fL (81-97); MEAN PLATELET VOLUME 7.5 fL (7.4-10.4); MONOCYTES # (AUTO) 0.53 x10^3/uL (0.2-0.8); MONOCYTES % (AUTO) 5 % (2-9); NEUTROPHILS # (AUTO) 7.07 x10^3/uL (1.8-6.8); NEUTROPHILS % (AUTO) 72 % (42-75); PLATELET COUNT 315 x10^3/uL (130-400); RED BLOOD COUNT 4.07 x10^6/uL (4.38-5.82); RED CELL DISTRIBUTION WIDTH 17.6 % (9.4-14.8)
[2019-08-09 08:14] VITALS: BP 151/100
[2019-08-09] MEDS ORDERED: FENTANYL PF 250 MCG/5ML ONE (09:17)
[2019-08-09] MEDS ORDERED: MIDAZOLAM 1 MG/ML, 2ML ONE (09:17)
[2019-08-09] MEDS ORDERED: PROPOFOL 10 MG/ML, 20ML ONE (09:30)
[2019-08-09] MEDS: LOSARTAN 50MG TABLET PO SCH (09:50)
[2019-08-09 12:13] VITALS: BP 150/94
[2019-08-09 15:45] LABS: CULTURE INDICATED? YES; MICROSCOPIC INDICATED
[2019-08-09 21:38] VITALS: BP 137/88
[2019-08-09 23:52] VITALS: BP 156/103
[2019-08-10] MEDS: HEPARIN 5,000 UNITS/ML, 1ML SQ SCH ×3 (00:30→13:42)
[2019-08-10 03:22] VITALS: BP 147/89
[2019-08-10] MEDS: CEFTAROLINE 400 MG in SODIUM CHLORIDE 0.9% 100 ML IV SCH (04:48)
[2019-08-10 07:08] VITALS: BP 153/90
[2019-08-10] MEDS: LOSARTAN 50MG TABLET PO SCH (08:50)
[2019-08-10] MEDS: ACETAMINOPHEN 325 MG TABLET PO PRN ×2 (09:03→17:49)
[2019-08-10 12:31] VITALS: BP 144/85
[2019-08-10] MEDS: CEFTAROLINE 600 MG in SODIUM CHLORIDE 0.9% 100 ML IV SCH (17:49)
[2019-08-10] MEDS ORDERED: METHOCARBAMOL 500 MG TABLET PO PRN (21:00)
[2019-08-10 21:03] VITALS: BP 141/93
[2019-08-11] MEDS: HEPARIN 5,000 UNITS/ML, 1ML SQ SCH ×3 (00:30→15:44)
[2019-08-11 02:18] VITALS: BP 142/91
[2019-08-11 04:34] LABS: C-REACTIVE PROTEIN, QUANT 1.6 mg/dL (0.02-0.49)
[2019-08-11] MEDS: CEFTAROLINE 600 MG in SODIUM CHLORIDE 0.9% 100 ML IV SCH ×2 (06:01→17:45)
[2019-08-11 08:00] VITALS: BP 145/88
[2019-08-11] MEDS: LOSARTAN 50MG TABLET PO SCH (08:17)
[2019-08-11 14:39] VITALS: BP 145/95
[2019-08-11 20:25] VITALS: BP 146/97
[2019-08-12] MEDS: HEPARIN 5,000 UNITS/ML, 1ML SQ SCH ×4 (00:30→23:46)
[2019-08-12 01:18] VITALS: BP 149/91
[2019-08-12] MEDS: CEFTAROLINE 600 MG in SODIUM CHLORIDE 0.9% 100 ML IV SCH ×2 (05:54→17:40)
[2019-08-12 08:07] VITALS: BP 157/94
[2019-08-12] MEDS: LOSARTAN 50MG TABLET PO SCH (08:55)
[2019-08-12 12:54] VITALS: BP 150/101
[2019-08-12] MEDS ORDERED: METHOCARBAMOL 500 MG TABLET PO PRN (13:00)
[2019-08-12 13:44] VITALS: BP 148/89
[2019-08-12 19:01] VITALS: BP 148/94
[2019-08-12] MEDS: CARVEDILOL 3.125 MG TABLET PO SCH (21:25)
[2019-08-13 00:32] VITALS: BP 161/85
[2019-08-13 05:01] LABS: HCT (SEDRATE) 33.9 % (39.2-51.8)
[2019-08-13 05:11] LABS: BASOPHILS # (AUTO) 0.05 x10^3/uL (0-0.1); BASOPHILS % (AUTO) 1 % (0-1); EOSINOPHILS % (AUTO) 5 % (1-7); LYMPHOCYTES # (AUTO) 2.79 x10^3/uL (1-3.4); LYMPHOCYTES % (AUTO) 28 % (22-44); MD NO; MEAN CORPUSCULAR HEMOGLOBIN 25.8 pg (27.5-34.5); MEAN CORPUSCULAR HGB CONC 31.5 g/dL (33.2-36.2); MEAN CORPUSCULAR VOLUME 81.7 fL (81-97); MEAN PLATELET VOLUME 7.6 fL (7.4-10.4); MONOCYTES # (AUTO) 0.79 x10^3/uL (0.2-0.8); MONOCYTES % (AUTO) 8 % (2-9); NEUTROPHILS # (AUTO) 5.86 x10^3/uL (1.8-6.8); NEUTROPHILS % (AUTO) 59 % (42-75); PLATELET COUNT 311 x10^3/uL (130-400); RED BLOOD COUNT 4.16 x10^6/uL (4.38-5.82)
[2019-08-13 05:12] LABS: ALBUMIN 1.9 g/dL (3.4-5.0); ANION GAP 6 mmol/L (5-15); CALCIUM 7.8 mg/dL (8.5-10.1); CHLORIDE 109 mmol/L (98-107)
[2019-08-13 05:25] LABS: ALANINE AMINOTRANSFERASE 11 U/L (12-78); ALKALINE PHOSPHATASE 107 U/L (45-117); BILIRUBIN,TOTAL 0.3 mg/dL (0.2-1.0); CREATININE 0.74 mg/dL (0.7-1.3); TOTAL PROTEIN 6.5 g/dL (6.4-8.2)
[2019-08-13] MEDS: CEFTAROLINE 600 MG in SODIUM CHLORIDE 0.9% 100 ML IV SCH ×2 (05:32→19:11)
[2019-08-13 08:59] VITALS: BP 151/91
[2019-08-13] MEDS: HEPARIN 5,000 UNITS/ML, 1ML SQ SCH ×2 (09:19→15:53)
[2019-08-13] MEDS: LOSARTAN 50MG TABLET PO SCH (09:20)
[2019-08-13] MEDS ORDERED: FERR-51 PO ×2 (10:13)
[2019-08-13] MEDS ORDERED: HYDR-3341 PO ×2 (10:13)
[2019-08-13] MEDS ORDERED: CARV3.1212 PO ×2 (10:13)
[2019-08-13] MEDS ORDERED: ACET325T26 PO (10:13)
[2019-08-13] MEDS ORDERED: CEFT600V IV ×2 (10:15)
[2019-08-13 15:51] VITALS: BP 155/86
[2019-08-13] MEDS: ISOSORBIDE DINITRATE 10 MG TABLET PO SCH ×2 (15:53→21:18)
[2019-08-13 19:32] VITALS: BP 115/64
[2019-08-13 21:14] VITALS: BP 125/79
[2019-08-13] MEDS: CARVEDILOL 3.125 MG TABLET PO SCH (21:18)
[2019-08-14] MEDS: HEPARIN 5,000 UNITS/ML, 1ML SQ SCH ×3 (00:30→16:27)
[2019-08-14 01:11] VITALS: BP 136/75
[2019-08-14 08:03] VITALS: BP 124/81
[2019-08-14] MEDS: CEFTAROLINE 600 MG in SODIUM CHLORIDE 0.9% 100 ML IV SCH ×2 (08:11→19:13)
[2019-08-14] MEDS: ISOSORBIDE DINITRATE 10 MG TABLET PO SCH ×3 (08:12→21:19)
[2019-08-14] MEDS: LACTOBACILLUS CHEW TABLET PO SCH ×3 (08:13→21:19)
[2019-08-14] MEDS: LOSARTAN 50MG TABLET PO SCH (08:13)
[2019-08-14 16:26] VITALS: BP 144/85
[2019-08-14 19:48] VITALS: BP 143/80
[2019-08-14] MEDS: CARVEDILOL 3.125 MG TABLET PO SCH (21:20)
[2019-08-15] MEDS: HEPARIN 5,000 UNITS/ML, 1ML SQ SCH ×3 (00:30→16:30)
[2019-08-15 03:20] VITALS: BP 126/81
[2019-08-15 08:09] VITALS: BP 145/88
[2019-08-15] MEDS: CEFTAROLINE 600 MG in SODIUM CHLORIDE 0.9% 100 ML IV SCH ×2 (09:07→21:55)
[2019-08-15] MEDS: ISOSORBIDE DINITRATE 10 MG TABLET PO SCH ×3 (09:08→21:56)
[2019-08-15] MEDS: LOSARTAN 50MG TABLET PO SCH (09:09)
[2019-08-15] MEDS: LACTOBACILLUS CHEW TABLET PO SCH ×3 (09:09→21:55)
[2019-08-15 16:59] VITALS: BP 146/84
[2019-08-15 19:38] VITALS: BP 152/88
[2019-08-15] MEDS: CARVEDILOL 3.125 MG TABLET PO SCH (21:56)
[2019-08-16] MEDS: HEPARIN 5,000 UNITS/ML, 1ML SQ SCH ×3 (00:30→16:30)
[2019-08-16 01:42] VITALS: BP 146/82
[2019-08-16] MEDS: ACETAMINOPHEN 325 MG TABLET PO PRN (03:13)
[2019-08-16 10:12] VITALS: BP 138/83
[2019-08-16] MEDS: CEFTAROLINE 600 MG in SODIUM CHLORIDE 0.9% 100 ML IV SCH ×2 (10:14→22:49)
[2019-08-16] MEDS: LOSARTAN 50MG TABLET PO SCH (10:14)
[2019-08-16] MEDS: ISOSORBIDE DINITRATE 10 MG TABLET PO SCH ×3 (10:15→22:49)
[2019-08-16] MEDS: LACTOBACILLUS CHEW TABLET PO SCH ×4 (10:15→22:48)
[2019-08-16 12:41] VITALS: BP 145/81
[2019-08-16 20:25] VITALS: BP 111/80
[2019-08-16] MEDS: CARVEDILOL 3.125 MG TABLET PO SCH (22:49)
[2019-08-17] MEDS: HEPARIN 5,000 UNITS/ML, 1ML SQ SCH ×3 (00:30→16:14)
[2019-08-17 01:35] VITALS: BP 136/79
[2019-08-17 08:20] VITALS: BP 138/79
[2019-08-17] MEDS: CEFTAROLINE 600 MG in SODIUM CHLORIDE 0.9% 100 ML IV SCH ×2 (09:20→21:01)
[2019-08-17] MEDS: LOSARTAN 50MG TABLET PO SCH (09:20)
[2019-08-17] MEDS: ISOSORBIDE DINITRATE 10 MG TABLET PO SCH ×5 (09:21→22:05)
[2019-08-17] MEDS: LACTOBACILLUS CHEW TABLET PO SCH ×3 (09:21→22:05)
[2019-08-17 14:20] VITALS: BP 138/90
[2019-08-17 20:26] VITALS: BP 122/77
[2019-08-17] MEDS: CARVEDILOL 3.125 MG TABLET PO SCH (22:05)
[2019-08-18] MEDS: HEPARIN 5,000 UNITS/ML, 1ML SQ SCH ×3 (00:30→15:40)
[2019-08-18 02:21] VITALS: BP 135/73
[2019-08-18 05:20] LABS: CHOL/HDL RATIO 4.1; LDL/HDL RATIO 2.2 (0.5-3.0)
[2019-08-18 07:54] VITALS: BP 157/94
[2019-08-18] MEDS: ISOSORBIDE DINITRATE 10 MG TABLET PO SCH ×3 (09:00→21:00)
[2019-08-18] MEDS: CEFTAROLINE 600 MG in SODIUM CHLORIDE 0.9% 100 ML IV SCH ×2 (09:08→21:19)
[2019-08-18] MEDS: LACTOBACILLUS CHEW TABLET PO SCH ×3 (09:09→21:17)
[2019-08-18] MEDS: LOSARTAN 50MG TABLET PO SCH (09:09)
[2019-08-18 13:33] VITALS: BP 140/84
[2019-08-18 19:42] VITALS: BP 129/78
[2019-08-18] MEDS: CARVEDILOL 3.125 MG TABLET PO SCH (21:18)
[2019-08-19] MEDS: HEPARIN 5,000 UNITS/ML, 1ML SQ SCH ×3 (00:30→16:30)
[2019-08-19 01:24] VITALS: BP 131/73
[2019-08-19 07:48] VITALS: BP 123/77
[2019-08-19] MEDS: ISOSORBIDE DINITRATE 10 MG TABLET PO SCH ×3 (09:00→21:00)
[2019-08-19] MEDS: CEFTAROLINE 600 MG in SODIUM CHLORIDE 0.9% 100 ML IV SCH ×2 (09:12→20:46)
[2019-08-19] MEDS: LOSARTAN 50MG TABLET PO SCH (09:12)
[2019-08-19] MEDS: LACTOBACILLUS CHEW TABLET PO SCH ×3 (09:13→20:51)
[2019-08-19 14:56] VITALS: BP 135/78
[2019-08-19 20:00] VITALS: BP 126/74
[2019-08-19] MEDS: CARVEDILOL 3.125 MG TABLET PO SCH (21:07)
[2019-08-20] MEDS: HEPARIN 5,000 UNITS/ML, 1ML SQ SCH ×3 (00:25→19:00)
[2019-08-20 02:37] VITALS: BP 132/76
[2019-08-20 06:05] LABS: BASOPHILS # (AUTO) 0.08 x10^3/uL (0-0.1); BASOPHILS % (AUTO) 1 % (0-1); EOSINOPHILS # (AUTO) 0.32 x10^3/uL (0-0.4); EOSINOPHILS % (AUTO) 3 % (1-7); LYMPHOCYTES # (AUTO) 2.41 x10^3/uL (1-3.4); LYMPHOCYTES % (AUTO) 20 % (22-44); MD NO; MEAN CORPUSCULAR HEMOGLOBIN 26.1 pg (27.5-34.5); MEAN CORPUSCULAR HGB CONC 31.6 g/dL (33.2-36.2); MEAN CORPUSCULAR VOLUME 82.4 fL (81-97); MEAN PLATELET VOLUME 7.9 fL (7.4-10.4); MONOCYTES # (AUTO) 0.78 x10^3/uL (0.2-0.8); MONOCYTES % (AUTO) 6 % (2-9); NEUTROPHILS # (AUTO) 8.73 x10^3/uL (1.8-6.8); NEUTROPHILS % (AUTO) 71 % (42-75); PLATELET COUNT 262 x10^3/uL (130-400); RED BLOOD COUNT 4.39 x10^6/uL (4.38-5.82); RED CELL DISTRIBUTION WIDTH 20.4 % (9.4-14.8)
[2019-08-20 06:16] LABS: ALBUMIN 2.3 g/dL (3.4-5.0); ANION GAP 5 mmol/L (5-15); CHLORIDE 109 mmol/L (98-107)
[2019-08-20 06:26] LABS: ALANINE AMINOTRANSFERASE 14 U/L (12-78); ALKALINE PHOSPHATASE 119 U/L (45-117); BILIRUBIN,TOTAL 0.7 mg/dL (0.2-1.0); CREATININE 0.91 mg/dL (0.7-1.3); TOTAL PROTEIN 7.1 g/dL (6.4-8.2)
[2019-08-20 06:56] LABS: HCT (SEDRATE) 36.1 % (39.2-51.8)
[2019-08-20 09:30] VITALS: BP 119/67
[2019-08-20] MEDS: LOSARTAN 50MG TABLET PO SCH (11:17)
[2019-08-20] MEDS: ISOSORBIDE DINITRATE 10 MG TABLET PO SCH ×3 (11:17→21:00)
[2019-08-20] MEDS: LACTOBACILLUS CHEW TABLET PO SCH ×3 (11:18→21:01)
[2019-08-20] MEDS: CEFTAROLINE 600 MG in SODIUM CHLORIDE 0.9% 100 ML IV SCH (12:11)
[2019-08-20 13:28] VITALS: BP 107/69
[2019-08-20] MEDS: CEFTRIAXONE PMX 1GM/50ML 50 ML IV SCH (18:39)
[2019-08-20 19:47] VITALS: BP 107/61
[2019-08-20] MEDS: CARVEDILOL 3.125 MG TABLET PO SCH (21:02)
[2019-08-21 02:03] VITALS: BP 90/56
[2019-08-21] MEDS: HEPARIN 5,000 UNITS/ML, 1ML SQ SCH ×3 (02:55→18:34)
[2019-08-21] MEDS: CEFTRIAXONE PMX 1GM/50ML 50 ML IV SCH (05:51)
[2019-08-21 08:03] VITALS: BP 97/63
[2019-08-21] MEDS: ISOSORBIDE DINITRATE 10 MG TABLET PO SCH ×3 (09:00→21:00)
[2019-08-21] MEDS: LOSARTAN 50MG TABLET PO SCH (09:00)
[2019-08-21] MEDS: LACTOBACILLUS CHEW TABLET PO SCH ×3 (11:39→21:00)
[2019-08-21 12:31] VITALS: BP 93/57
[2019-08-21] MEDS ORDERED: DIPHENHYDRAMINE 25 MG CAPSULE PO ONE (13:30)
[2019-08-21] MEDS: SODIUM CHLORIDE 0.9% 1,000 ML IV SCH ×2 (13:46→21:57)
[2019-08-21] MEDS: SODIUM CHLORIDE 0.9% IV SCH (18:40)
[2019-08-21] MEDS: ERAVACYCLINE IV SCH (18:40)
[2019-08-21 20:34] VITALS: BP 102/52
[2019-08-21] MEDS: CARVEDILOL 3.125 MG TABLET PO SCH (21:00)
[2019-08-22 01:06] VITALS: BP 109/61
[2019-08-22] MEDS: HEPARIN 5,000 UNITS/ML, 1ML SQ SCH ×3 (02:35→19:00)
[2019-08-22] MEDS: SODIUM CHLORIDE 0.9% 1,000 ML IV SCH (05:46)
[2019-08-22] MEDS: SODIUM CHLORIDE 0.9% IV SCH ×2 (05:46→19:15)
[2019-08-22] MEDS: ERAVACYCLINE IV SCH ×2 (05:46→19:15)
[2019-08-22 08:48] VITALS: BP 113/67
[2019-08-22] MEDS: LACTOBACILLUS CHEW TABLET PO SCH ×3 (08:48→20:42)
[2019-08-22] MEDS: LOSARTAN 50MG TABLET PO SCH (08:50)
[2019-08-22] MEDS: ISOSORBIDE DINITRATE 10 MG TABLET PO SCH ×3 (08:51→20:41)
[2019-08-22 15:32] VITALS: BP 129/82
[2019-08-22 15:50] LABS: CULTURE INDICATED? YES; MICROSCOPIC AUTO
[2019-08-22 20:22] VITALS: BP 125/72
[2019-08-22] MEDS: CARVEDILOL 3.125 MG TABLET PO SCH (20:41)
[2019-08-23 01:05] VITALS: BP 128/68
[2019-08-23] MEDS: HEPARIN 5,000 UNITS/ML, 1ML SQ SCH ×3 (02:59→19:00)
[2019-08-23 04:19] LABS: BASOPHILS # (AUTO) 0.06 x10^3/uL (0-0.1); BASOPHILS % (AUTO) 0 % (0-1); EOSINOPHILS % (AUTO) 5 % (1-7); LYMPHOCYTES % (AUTO) 19 % (22-44); MD NO; MEAN CORPUSCULAR HEMOGLOBIN 26.2 pg (27.5-34.5); MEAN CORPUSCULAR HGB CONC 31.6 g/dL (33.2-36.2); MEAN CORPUSCULAR VOLUME 83.2 fL (81-97); MEAN PLATELET VOLUME 7.7 fL (7.4-10.4); MONOCYTES # (AUTO) 0.86 x10^3/uL (0.2-0.8); MONOCYTES % (AUTO) 6 % (2-9); NEUTROPHILS % (AUTO) 70 % (42-75); PLATELET COUNT 293 x10^3/uL (130-400); RED BLOOD COUNT 4.03 x10^6/uL (4.38-5.82); RED CELL DISTRIBUTION WIDTH 20.6 % (9.4-14.8)
[2019-08-23 04:30] LABS: ANION GAP 5 mmol/L (5-15); CALCIUM 7.7 mg/dL (8.5-10.1); CHLORIDE 112 mmol/L (98-107); CREATININE 0.83 mg/dL (0.7-1.3)
[2019-08-23 07:57] VITALS: BP 134/86
[2019-08-23] MEDS: ERAVACYCLINE IV SCH ×2 (08:02→21:23)
[2019-08-23] MEDS: SODIUM CHLORIDE 0.9% IV SCH ×2 (08:02→21:23)
[2019-08-23] MEDS: ISOSORBIDE DINITRATE 10 MG TABLET PO SCH ×3 (08:03→21:34)
[2019-08-23] MEDS: LACTOBACILLUS CHEW TABLET PO SCH ×3 (08:03→21:33)
[2019-08-23] MEDS: LOSARTAN 50MG TABLET PO SCH (08:04)
[2019-08-23 14:46] VITALS: BP 130/73
[2019-08-23 18:58] VITALS: BP 133/83
[2019-08-23] MEDS: CARVEDILOL 3.125 MG TABLET PO SCH (21:34)
[2019-08-24 02:00] VITALS: BP 131/74
[2019-08-24] MEDS: HEPARIN 5,000 UNITS/ML, 1ML SQ SCH ×3 (03:00→19:00)
[2019-08-24 05:46] LABS: BASOPHILS # (AUTO) 0.07 x10^3/uL (0-0.1); BASOPHILS % (AUTO) 1 % (0-1); EOSINOPHILS # (AUTO) 0.48 x10^3/uL (0-0.4); EOSINOPHILS % (AUTO) 4 % (1-7); LYMPHOCYTES # (AUTO) 2.89 x10^3/uL (1-3.4); LYMPHOCYTES % (AUTO) 23 % (22-44); MD NO; MEAN CORPUSCULAR HEMOGLOBIN 26.4 pg (27.5-34.5); MEAN CORPUSCULAR HGB CONC 31.9 g/dL (33.2-36.2); MEAN CORPUSCULAR VOLUME 82.8 fL (81-97); MEAN PLATELET VOLUME 7.9 fL (7.4-10.4); MONOCYTES # (AUTO) 0.62 x10^3/uL (0.2-0.8); MONOCYTES % (AUTO) 5 % (2-9); NEUTROPHILS # (AUTO) 8.59 x10^3/uL (1.8-6.8); NEUTROPHILS % (AUTO) 68 % (42-75); PLATELET COUNT 316 x10^3/uL (130-400); RED BLOOD COUNT 4.24 x10^6/uL (4.38-5.82); RED CELL DISTRIBUTION WIDTH 20.1 % (9.4-14.8)
[2019-08-24] MEDS: LOSARTAN 50MG TABLET PO SCH (09:00)
[2019-08-24] MEDS: LACTOBACILLUS CHEW TABLET PO SCH ×3 (10:17→21:37)
[2019-08-24] MEDS: ISOSORBIDE DINITRATE 10 MG TABLET PO SCH ×3 (10:18→21:37)
[2019-08-24 10:21] VITALS: BP 129/81
[2019-08-24] MEDS: ERAVACYCLINE IV SCH ×2 (11:09→22:14)
[2019-08-24] MEDS: SODIUM CHLORIDE 0.9% IV SCH ×2 (11:09→22:14)
[2019-08-24 13:04] VITALS: BP 118/87
[2019-08-24] MEDS: CARVEDILOL 3.125 MG TABLET PO SCH (21:38)
[2019-08-24 21:50] VITALS: BP 136/89
[2019-08-25 01:28] VITALS: BP 128/70
[2019-08-25] MEDS: HEPARIN 5,000 UNITS/ML, 1ML SQ SCH ×3 (03:00→19:00)
[2019-08-25 08:21] VITALS: BP 132/76
[2019-08-25] MEDS: ISOSORBIDE DINITRATE 10 MG TABLET PO SCH ×3 (08:26→22:00)
[2019-08-25] MEDS: LACTOBACILLUS CHEW TABLET PO SCH ×3 (08:27→22:01)
[2019-08-25] MEDS: LOSARTAN 50MG TABLET PO SCH (08:27)
[2019-08-25] MEDS: ERAVACYCLINE IV SCH ×2 (11:25→22:00)
[2019-08-25] MEDS: SODIUM CHLORIDE 0.9% IV SCH ×2 (11:25→22:00)
[2019-08-25 11:44] LABS: BASOPHILS # (AUTO) 0.07 x10^3/uL (0-0.1); BASOPHILS % (AUTO) 1 % (0-1); EOSINOPHILS # (AUTO) 0.34 x10^3/uL (0-0.4); EOSINOPHILS % (AUTO) 3 % (1-7); LYMPHOCYTES # (AUTO) 3.58 x10^3/uL (1-3.4); LYMPHOCYTES % (AUTO) 29 % (22-44); MD NO; MEAN CORPUSCULAR HEMOGLOBIN 26.6 pg (27.5-34.5); MEAN CORPUSCULAR HGB CONC 31.7 g/dL (33.2-36.2); MEAN PLATELET VOLUME 7.4 fL (7.4-10.4); MONOCYTES % (AUTO) 8 % (2-9); NEUTROPHILS # (AUTO) 7.43 x10^3/uL (1.8-6.8); NEUTROPHILS % (AUTO) 60 % (42-75); PLATELET COUNT 365 x10^3/uL (130-400); RED BLOOD COUNT 4.53 x10^6/uL (4.38-5.82); RED CELL DISTRIBUTION WIDTH 20.4 % (9.4-14.8)
[2019-08-25 13:35] VITALS: BP 118/68
[2019-08-25 14:08] VITALS: BP 126/80
[2019-08-25 19:44] VITALS: BP 140/85
[2019-08-25] MEDS: CARVEDILOL 3.125 MG TABLET PO SCH (22:01)
[2019-08-26 00:58] VITALS: BP 126/82
[2019-08-26] MEDS: HEPARIN 5,000 UNITS/ML, 1ML SQ SCH ×3 (02:58→19:00)
[2019-08-26 04:42] LABS: BASOPHILS # (AUTO) 0.18 x10^3/uL (0-0.1); BASOPHILS % (AUTO) 2 % (0-1); EOSINOPHILS # (AUTO) 0.33 x10^3/uL (0-0.4); EOSINOPHILS % (AUTO) 3 % (1-7); LYMPHOCYTES # (AUTO) 3.35 x10^3/uL (1-3.4); LYMPHOCYTES % (AUTO) 31 % (22-44); MD NO; MEAN CORPUSCULAR HEMOGLOBIN 26.6 pg (27.5-34.5); MEAN CORPUSCULAR HGB CONC 31.8 g/dL (33.2-36.2); MEAN CORPUSCULAR VOLUME 83.5 fL (81-97); MEAN PLATELET VOLUME 7.7 fL (7.4-10.4); MONOCYTES # (AUTO) 0.83 x10^3/uL (0.2-0.8); MONOCYTES % (AUTO) 8 % (2-9); NEUTROPHILS % (AUTO) 56 % (42-75); PLATELET COUNT 361 x10^3/uL (130-400); RED BLOOD COUNT 4.42 x10^6/uL (4.38-5.82); RED CELL DISTRIBUTION WIDTH 20.2 % (9.4-14.8)
[2019-08-26] MEDS: LOSARTAN 50MG TABLET PO SCH (09:00)
[2019-08-26 09:30] VITALS: BP 143/91
[2019-08-26] MEDS: ISOSORBIDE DINITRATE 10 MG TABLET PO SCH ×3 (09:50→22:03)
[2019-08-26] MEDS: ERAVACYCLINE IV SCH ×2 (09:51→22:42)
[2019-08-26] MEDS: SODIUM CHLORIDE 0.9% IV SCH ×2 (09:51→22:42)
[2019-08-26] MEDS: LACTOBACILLUS CHEW TABLET PO SCH ×3 (09:51→22:04)
[2019-08-26] MEDS: MUPIROCIN OINT 2%, 22GM TP SCH ×3 (12:24→22:04)
[2019-08-26 13:56] VITALS: BP 117/78
[2019-08-26 18:55] VITALS: BP 123/77
[2019-08-26] MEDS: CARVEDILOL 3.125 MG TABLET PO SCH (22:04)
[2019-08-27] MEDS: HEPARIN 5,000 UNITS/ML, 1ML SQ SCH ×3 (02:03→17:48)
[2019-08-27 04:12] VITALS: BP 130/81
[2019-08-27 04:46] LABS: HCT (SEDRATE) 36.5 % (39.2-51.8)
[2019-08-27 04:47] LABS: BASOPHILS # (AUTO) 0.23 x10^3/uL (0-0.1); BASOPHILS % (AUTO) 2 % (0-1); EOSINOPHILS # (AUTO) 0.34 x10^3/uL (0-0.4); EOSINOPHILS % (AUTO) 3 % (1-7); LYMPHOCYTES # (AUTO) 3.22 x10^3/uL (1-3.4); LYMPHOCYTES % (AUTO) 32 % (22-44); MD NO; MEAN CORPUSCULAR HEMOGLOBIN 26.7 pg (27.5-34.5); MEAN CORPUSCULAR HGB CONC 31.9 g/dL (33.2-36.2); MEAN CORPUSCULAR VOLUME 83.9 fL (81-97); MEAN PLATELET VOLUME 7.9 fL (7.4-10.4); MONOCYTES # (AUTO) 0.89 x10^3/uL (0.2-0.8); MONOCYTES % (AUTO) 9 % (2-9); NEUTROPHILS # (AUTO) 5.31 x10^3/uL (1.8-6.8); NEUTROPHILS % (AUTO) 53 % (42-75); PLATELET COUNT 348 x10^3/uL (130-400); RED BLOOD COUNT 4.39 x10^6/uL (4.38-5.82); RED CELL DISTRIBUTION WIDTH 20.4 % (9.4-14.8)
[2019-08-27 04:59] LABS: ALBUMIN 2.1 g/dL (3.4-5.0); ANION GAP 4 mmol/L (5-15); CALCIUM 7.5 mg/dL (8.5-10.1); CHLORIDE 108 mmol/L (98-107)
[2019-08-27 05:10] LABS: ALANINE AMINOTRANSFERASE 14 U/L (12-78); ALKALINE PHOSPHATASE 150 U/L (45-117); BILIRUBIN,TOTAL 0.5 mg/dL (0.2-1.0); CREATININE 0.78 mg/dL (0.7-1.3); TOTAL PROTEIN 6.5 g/dL (6.4-8.2)
[2019-08-27 08:49] VITALS: BP 148/89
[2019-08-27] MEDS: LOSARTAN 50MG TABLET PO SCH (09:47)
[2019-08-27] MEDS: ISOSORBIDE DINITRATE 10 MG TABLET PO SCH ×3 (09:48→22:35)
[2019-08-27] MEDS: LACTOBACILLUS CHEW TABLET PO SCH ×3 (09:48→22:32)
[2019-08-27] MEDS: ERAVACYCLINE IV SCH ×2 (13:09→23:22)
[2019-08-27] MEDS: SODIUM CHLORIDE 0.9% IV SCH ×2 (13:09→23:22)
[2019-08-27] MEDS: MUPIROCIN OINT 2%, 22GM TP SCH ×3 (13:10→22:33)
[2019-08-27 14:17] VITALS: BP 137/86
[2019-08-27 22:27] VITALS: BP 142/87
[2019-08-27] MEDS: CARVEDILOL 3.125 MG TABLET PO SCH (22:32)
[2019-08-28 02:17] VITALS: BP 124/71
[2019-08-28] MEDS: HEPARIN 5,000 UNITS/ML, 1ML SQ SCH ×4 (03:00→22:16)
[2019-08-28 04:29] LABS: BASOPHILS # (AUTO) 0.18 x10^3/uL (0-0.1); BASOPHILS % (AUTO) 1 % (0-1); EOSINOPHILS # (AUTO) 0.31 x10^3/uL (0-0.4); EOSINOPHILS % (AUTO) 2 % (1-7); LYMPHOCYTES # (AUTO) 3.13 x10^3/uL (1-3.4); LYMPHOCYTES % (AUTO) 24 % (22-44); MD NO; MEAN CORPUSCULAR HEMOGLOBIN 26.6 pg (27.5-34.5); MEAN CORPUSCULAR HGB CONC 31.9 g/dL (33.2-36.2); MEAN CORPUSCULAR VOLUME 83.4 fL (81-97); MEAN PLATELET VOLUME 7.9 fL (7.4-10.4); MONOCYTES # (AUTO) 1.11 x10^3/uL (0.2-0.8); MONOCYTES % (AUTO) 8 % (2-9); NEUTROPHILS # (AUTO) 8.49 x10^3/uL (1.8-6.8); NEUTROPHILS % (AUTO) 64 % (42-75); PLATELET COUNT 366 x10^3/uL (130-400); RED BLOOD COUNT 4.54 x10^6/uL (4.38-5.82); RED CELL DISTRIBUTION WIDTH 20.3 % (9.4-14.8)
[2019-08-28 06:49] VITALS: BP 128/80
[2019-08-28] MEDS: ISOSORBIDE DINITRATE 10 MG TABLET PO SCH ×4 (09:59→20:43)
[2019-08-28] MEDS: LACTOBACILLUS CHEW TABLET PO SCH ×4 (10:01→20:37)
[2019-08-28] MEDS: LOSARTAN 50MG TABLET PO SCH (10:01)
[2019-08-28] MEDS: MUPIROCIN OINT 2%, 22GM TP SCH ×3 (10:07→20:43)
[2019-08-28] MEDS: ERAVACYCLINE IV SCH (12:38)
[2019-08-28] MEDS: SODIUM CHLORIDE 0.9% IV SCH (12:38)
[2019-08-28 13:48] VITALS: BP 123/81
[2019-08-28] MEDS: CARBAMIDE PEROXIDE EAR DROPS 6.5%, 15ML LEFT EAR SCH (15:44)
[2019-08-28 19:08] VITALS: BP 122/71
[2019-08-28 20:33] VITALS: BP 148/89
[2019-08-28] MEDS: CARVEDILOL 3.125 MG TABLET PO SCH (20:37)
[2019-08-29] MEDS: ERAVACYCLINE IV SCH ×2 (00:34→13:16)
[2019-08-29] MEDS: SODIUM CHLORIDE 0.9% IV SCH ×2 (00:34→13:16)
[2019-08-29 02:25] VITALS: BP 123/82
[2019-08-29 05:52] LABS: BASOPHILS # (AUTO) 0.13 x10^3/uL (0-0.1); BASOPHILS % (AUTO) 1 % (0-1); EOSINOPHILS # (AUTO) 0.46 x10^3/uL (0-0.4); EOSINOPHILS % (AUTO) 4 % (1-7); LYMPHOCYTES # (AUTO) 3.44 x10^3/uL (1-3.4); LYMPHOCYTES % (AUTO) 33 % (22-44); MD NO; MEAN CORPUSCULAR HEMOGLOBIN 26.9 pg (27.5-34.5); MEAN CORPUSCULAR HGB CONC 32.2 g/dL (33.2-36.2); MEAN CORPUSCULAR VOLUME 83.7 fL (81-97); MEAN PLATELET VOLUME 8.1 fL (7.4-10.4); MONOCYTES # (AUTO) 0.82 x10^3/uL (0.2-0.8); MONOCYTES % (AUTO) 8 % (2-9); NEUTROPHILS # (AUTO) 5.48 x10^3/uL (1.8-6.8); NEUTROPHILS % (AUTO) 53 % (42-75); PLATELET COUNT 341 x10^3/uL (130-400); RED CELL DISTRIBUTION WIDTH 20.1 % (9.4-14.8)
[2019-08-29 07:35] VITALS: BP 143/80
[2019-08-29] MEDS: LOSARTAN 50MG TABLET PO SCH (09:18)
[2019-08-29] MEDS: ISOSORBIDE DINITRATE 10 MG TABLET PO SCH ×3 (09:19→21:54)
[2019-08-29] MEDS: LACTOBACILLUS CHEW TABLET PO SCH ×3 (09:20→21:53)
[2019-08-29] MEDS: MUPIROCIN OINT 2%, 22GM TP SCH ×3 (09:20→21:54)
[2019-08-29] MEDS: CARBAMIDE PEROXIDE EAR DROPS 6.5%, 15ML LEFT EAR SCH (09:21)
[2019-08-29] MEDS: HEPARIN 5,000 UNITS/ML, 1ML SQ SCH ×2 (11:00→19:00)
[2019-08-29 14:55] VITALS: BP 145/86
[2019-08-29] MEDS ORDERED: MUPI22OI2 TP (15:00)
[2019-08-29] MEDS ORDERED: LOSA50TA2 PO (15:00)
[2019-08-29] MEDS ORDERED: ERAV50VI IV (15:00)
[2019-08-29] MEDS ORDERED: ISOS10TA2 PO (15:00)
[2019-08-29] MEDS ORDERED: HYDR-3341 PO (15:00)
[2019-08-29] MEDS ORDERED: ACID1TAB7 PO (15:00)
[2019-08-29 21:49] VITALS: BP 130/75
[2019-08-29] MEDS: CARVEDILOL 3.125 MG TABLET PO SCH (21:54)
[2019-08-30] MEDS: ERAVACYCLINE IV SCH ×2 (01:11→13:11)
[2019-08-30] MEDS: SODIUM CHLORIDE 0.9% IV SCH ×2 (01:11→13:11)
[2019-08-30] MEDS: HEPARIN 5,000 UNITS/ML, 1ML SQ SCH ×4 (01:11→21:43)
[2019-08-30 04:07] VITALS: BP 127/77
[2019-08-30 08:03] VITALS: BP 140/91
[2019-08-30] MEDS: ISOSORBIDE DINITRATE 10 MG TABLET PO SCH ×3 (08:51→21:42)
[2019-08-30] MEDS: LOSARTAN 50MG TABLET PO SCH (08:52)
[2019-08-30] MEDS: LACTOBACILLUS CHEW TABLET PO SCH ×3 (08:52→21:42)
[2019-08-30] MEDS: MUPIROCIN OINT 2%, 22GM TP SCH ×3 (08:53→21:43)
[2019-08-30 12:36] VITALS: BP 140/84
[2019-08-30 15:00] VITALS: BP 128/79
[2019-08-30 19:12] VITALS: BP 138/91
[2019-08-30] MEDS: CARVEDILOL 3.125 MG TABLET PO SCH (21:43)
[2019-08-30 21:44] VITALS: BP 129/82
[2019-08-31] MEDS: SODIUM CHLORIDE 0.9% IV SCH ×2 (01:10→13:24)
[2019-08-31] MEDS: ERAVACYCLINE IV SCH ×2 (01:10→13:24)
[2019-08-31 08:50] VITALS: BP 129/78
[2019-08-31] MEDS: LOSARTAN 50MG TABLET PO SCH (08:51)
[2019-08-31] MEDS: LACTOBACILLUS CHEW TABLET PO SCH ×3 (08:51→21:01)
[2019-08-31] MEDS: ISOSORBIDE DINITRATE 10 MG TABLET PO SCH ×3 (08:52→21:05)
[2019-08-31] MEDS: MUPIROCIN OINT 2%, 22GM TP SCH ×3 (08:55→21:06)
[2019-08-31] MEDS: HEPARIN 5,000 UNITS/ML, 1ML SQ SCH ×2 (11:00→19:00)
[2019-08-31 14:16] VITALS: BP 136/83
[2019-08-31 19:44] VITALS: BP 126/73
[2019-08-31] MEDS: CARVEDILOL 3.125 MG TABLET PO SCH (21:02)
[2019-09-01] MEDS: ERAVACYCLINE IV SCH ×2 (00:59→12:16)
[2019-09-01] MEDS: SODIUM CHLORIDE 0.9% IV SCH ×2 (00:59→12:16)
[2019-09-01] MEDS: HEPARIN 5,000 UNITS/ML, 1ML SQ SCH ×3 (03:00→19:00)
[2019-09-01 07:35] VITALS: BP 141/81
[2019-09-01] MEDS: ISOSORBIDE DINITRATE 10 MG TABLET PO SCH ×3 (08:47→21:34)
[2019-09-01] MEDS: MUPIROCIN OINT 2%, 22GM TP SCH ×3 (08:48→21:35)
[2019-09-01] MEDS: LOSARTAN 50MG TABLET PO SCH (08:48)
[2019-09-01] MEDS: LACTOBACILLUS CHEW TABLET PO SCH ×3 (08:48→21:00)
[2019-09-01 13:00] VITALS: BP 131/72
[2019-09-01 21:30] VITALS: BP 118/69
[2019-09-01] MEDS: CARVEDILOL 3.125 MG TABLET PO SCH (21:34)
[2019-09-02] MEDS: SODIUM CHLORIDE 0.9% IV SCH ×2 (00:53→14:23)
[2019-09-02] MEDS: ERAVACYCLINE IV SCH ×2 (00:53→14:23)
[2019-09-02 02:24] VITALS: BP 119/79
[2019-09-02] MEDS: HEPARIN 5,000 UNITS/ML, 1ML SQ SCH ×3 (03:00→19:00)
[2019-09-02] MEDS: ISOSORBIDE DINITRATE 10 MG TABLET PO SCH ×3 (08:10→20:46)
[2019-09-02] MEDS: LOSARTAN 50MG TABLET PO SCH (08:17)
[2019-09-02] MEDS: LACTOBACILLUS CHEW TABLET PO SCH ×3 (08:18→20:59)
[2019-09-02] MEDS: MUPIROCIN OINT 2%, 22GM TP SCH ×3 (08:18→20:58)
[2019-09-02 09:00] VITALS: BP 123/73
[2019-09-02 14:00] VITALS: BP 111/78
[2019-09-02 20:00] VITALS: BP 106/63
[2019-09-02] MEDS: CARVEDILOL 3.125 MG TABLET PO SCH (20:58)
[2019-09-02] MEDS ORDERED: DIPHENHYDRAMINE 25 MG CAPSULE PO PRN (21:00)
[2019-09-03] MEDS: SODIUM CHLORIDE 0.9% IV SCH ×2 (00:32→12:30)
[2019-09-03] MEDS: ERAVACYCLINE IV SCH ×2 (00:32→12:30)
[2019-09-03] MEDS: HEPARIN 5,000 UNITS/ML, 1ML SQ SCH ×2 (02:51→11:00)
[2019-09-03 03:41] VITALS: BP 139/83
[2019-09-03 04:50] LABS: ALANINE AMINOTRANSFERASE 25 U/L (12-78); ALBUMIN 1.9 g/dL (3.4-5.0); ANION GAP 5 mmol/L (5-15); C-REACTIVE PROTEIN, QUANT 0.58 mg/dL (0.02-0.49); CALCIUM 7.5 mg/dL (8.5-10.1); CHLORIDE 114 mmol/L (98-107)
[2019-09-03 04:53] LABS: ALKALINE PHOSPHATASE 194 U/L (45-117); BILIRUBIN,TOTAL 0.5 mg/dL (0.2-1.0); CREATININE 0.69 mg/dL (0.7-1.3); TOTAL PROTEIN 6.4 g/dL (6.4-8.2)
[2019-09-03 05:02] LABS: HCT (SEDRATE) 37.7 % (39.2-51.8)
[2019-09-03 05:03] LABS: BASOPHILS % (AUTO) 1 % (0-1); EOSINOPHILS % (AUTO) 5 % (1-7); LYMPHOCYTES # (AUTO) 3.65 x10^3/uL (1-3.4); LYMPHOCYTES % (AUTO) 32 % (22-44); MD NO; MEAN CORPUSCULAR HGB CONC 31.8 g/dL (33.2-36.2); MEAN CORPUSCULAR VOLUME 85.1 fL (81-97); MONOCYTES # (AUTO) 0.91 x10^3/uL (0.2-0.8); MONOCYTES % (AUTO) 8 % (2-9); NEUTROPHILS # (AUTO) 6.09 x10^3/uL (1.8-6.8); NEUTROPHILS % (AUTO) 54 % (42-75); PLATELET COUNT 304 x10^3/uL (130-400); RED BLOOD COUNT 4.49 x10^6/uL (4.38-5.82); RED CELL DISTRIBUTION WIDTH 19.7 % (9.4-14.8)
[2019-09-03 08:02] VITALS: BP 116/67
[2019-09-03] MEDS: MUPIROCIN OINT 2%, 22GM TP SCH ×2 (09:00→16:00)
[2019-09-03] MEDS: LACTOBACILLUS CHEW TABLET PO SCH ×2 (09:00→16:00)
[2019-09-03] MEDS: ISOSORBIDE DINITRATE 10 MG TABLET PO SCH ×2 (10:19→16:34)
[2019-09-03] MEDS: LOSARTAN 50MG TABLET PO SCH (10:20)
[2019-09-03 13:55] VITALS: BP 114/74
[2019-09-03] MEDS ORDERED: LORazepam 1MG TABLET PO ONE (15:00)
== END 2019-09-03 21:54 | DRG 871 ==
LOC: ED 22:27 → EDIP 23:57 → 4NE 08-06 01:46 → 3N 08-06 16:03
PROVIDERS: ADMIT Internal Medicine; ATTEND Internal Medicine
PROC: 02HV33Z Insertion of Infusion Device into Superior Vena Cava, Percutaneous Approach (ICD-10-PCS; principal; 2019-08-08)
PROC: B5181ZA Fluoroscopy of Superior Vena Cava using Low Osmolar Contrast, Guidance (ICD-10-PCS; 2019-08-08)
PROC: B548ZZA Ultrasonography of Superior Vena Cava, Guidance (ICD-10-PCS; 2019-08-08)
PROC: 0T9B70Z Drainage of Bladder with Drainage Device, Via Natural or Artificial Opening (ICD-10-PCS; 2019-08-22)
PROC: 02HV33Z Insertion of Infusion Device into Superior Vena Cava, Percutaneous Approach (ICD-10-PCS; 2019-09-03)
PROC: B548ZZA Ultrasonography of Superior Vena Cava, Guidance (ICD-10-PCS; 2019-09-03)
PROC: B5181ZA Fluoroscopy of Superior Vena Cava using Low Osmolar Contrast, Guidance (ICD-10-PCS; 2019-09-03)
DX: A41.9 Sepsis, unspecified organism (principal); L89.304 Pressure ulcer of unspecified buttock, stage 4; E43 Unspecified severe protein-calorie malnutrition; M86.172 Other acute osteomyelitis, left ankle and foot; L03.119 Cellulitis of unspecified part of limb; L97.429 Non-pressure chronic ulcer of left heel and midfoot with unspecified severity; L97.919 Non-pressure chronic ulcer of unspecified part of right lower leg with unspecified severity; M86.672 Other chronic osteomyelitis, left ankle and foot; N39.0 Urinary tract infection, site not specified; Z88.0 Allergy status to penicillin; Z88.8 Allergy status to other drugs, medicaments and biological substances; Z68.34 Body mass index [BMI] 34.0-34.9, adult; B96.4 Proteus (mirabilis) (morganii) as the cause of diseases classified elsewhere; D50.9 Iron deficiency anemia, unspecified; D63.8 Anemia in other chronic diseases classified elsewhere; E11.621 Type 2 diabetes mellitus with foot ulcer; E11.69 Type 2 diabetes mellitus with other specified complication; E78.5 Hyperlipidemia, unspecified; E86.0 Dehydration; F41.9 Anxiety disorder, unspecified; E11.42 Type 2 diabetes mellitus with diabetic polyneuropathy; H61.20 Impacted cerumen, unspecified ear; H93.12 Tinnitus, left ear; I11.0 Hypertensive heart disease with heart failure; I50.9 Heart failure, unspecified; I80.8 Phlebitis and thrombophlebitis of other sites; L27.0 Generalized skin eruption due to drugs and medicaments taken internally; L89.95 Pressure ulcer of unspecified site, unstageable; L97.529 Non-pressure chronic ulcer of other part of left foot with unspecified severity; M81.0 Age-related osteoporosis without current pathological fracture; Q05.9 Spina bifida, unspecified; R32 Unspecified urinary incontinence; R62.7 Adult failure to thrive; Z53.20 Procedure and treatment not carried out because of patient's decision for unspecified reasons; Z74.01 Bed confinement status; Z79.2 Long term (current) use of antibiotics; Z86.14 Personal history of Methicillin resistant Staphylococcus aureus infection; Z87.891 Personal history of nicotine dependence; Z88.1 Allergy status to other antibiotic agents; Z89.511 Acquired absence of right leg below knee; Z96.643 Presence of artificial hip joint, bilateral; Z98.1 Arthrodesis status
CPT/HCPCS: 36415; 36573; 71045; 80048; 80053; 80061; 81001; 82040; 83540; 83550; 83735; 83880; 85025; 85651; 86140; 87040; 87070; 87077; 87086; 87147; 87186; 87205; 93005; 93926; 96365; 96375; G0378; J0696; J0712; J2185; J2250; J2405; J2543; J2704; J3010; J3370; A9575; C1751; J2270; J7030; J7050; Q0163

== ENCOUNTER 2020-03-17 16:23 | Emergency (ER) | payer MEDICARE ==
[~2020-03-17] VITALS: Ht 162.6 cm; Wt 102.0 kg
[~2020-03-17 16:23] MED LIST changes: +ACET325T26 PO; +CARV3.1212 PO; +ERAV50VI IV; +GABA300C PO; +HYDR-3341 PO; +HYDR-3342 PO; +ISOS10TA2 PO; +LINE600T15 PO; +MERO1VIA24 INJ
[2020-03-17 16:33] VITALS: BP 136/90
--- NOTE | 2020-03-17 16:48 | NUR ---
PT IN HOSPITAL GOWN. PT WHEELCHAIR WITH BELONGINGS IN ROOM WITH PT. PT ON VITALS MONITORS. PT AWAITING ERP EVAL. WILL CONTINUE TO MONITOR.
--- NOTE | 2020-03-17 17:17 | NUR ---
SPOKE WITH HEMODIALYSIS TECHNICIAN JAMIE TO SEE IF SHE WOULD BE ABLE TO TALK TO PT ABOUT HOUSING OPTIONS OR GETTING INTO A PHYSICAL THERAPY PROGRAM. HEMODIALYSIS TECHNICIAN STATED WILL COME DOWN AND SPEAK WITH PT.
--- NOTE | 2020-03-17 17:43 | NUR ---
LAB IN DRAWING BLOOD. RADIO STATION ENGINEER SPEAKING WITH PT AT THIS TIME.
[2020-03-17 17:57] LABS: BASOPHILS # (AUTO) 0.04 x10^3/uL (0-0.1); BASOPHILS % (AUTO) 0 % (0-1); EOSINOPHILS # (AUTO) 0.18 x10^3/uL (0-0.4); EOSINOPHILS % (AUTO) 2 % (1-7); LYMPHOCYTES # (AUTO) 2.78 x10^3/uL (1-3.4); LYMPHOCYTES % (AUTO) 26 % (22-44); MD NO; MEAN CORPUSCULAR HEMOGLOBIN 25.9 pg (27.5-34.5); MEAN CORPUSCULAR HGB CONC 31.9 g/dL (33.2-36.2); MEAN PLATELET VOLUME 7.8 fL (7.4-10.4); MONOCYTES % (AUTO) 7 % (2-9); NEUTROPHILS # (AUTO) 7.07 x10^3/uL (1.8-6.8); NEUTROPHILS % (AUTO) 65 % (42-75); PLATELET COUNT 366 x10^3/uL (130-400); RED BLOOD COUNT 5.57 x10^6/uL (4.38-5.82); RED CELL DISTRIBUTION WIDTH 15.7 % (9.4-14.8)
[2020-03-17 18:05] LABS: ALBUMIN 2.8 g/dL (3.4-5.0); ANION GAP 5 mmol/L (5-15); CALCIUM 8.3 mg/dL (8.5-10.1); CHLORIDE 111 mmol/L (98-107); CREATININE 0.79 mg/dL (0.7-1.3)
--- NOTE | 2020-03-17 18:45 | NUR ---
PT DRESSED AND PLACED IN WHEELCHAIR FOR [facility]
--- NOTE | 2020-03-17 18:50 | NUR ---
ERP AWARE URINE SAMPLE WAS NOT ABLE TO BE OBTAINED WITH STRAIGHT CATH, PT VOIDING CONTINUALLY INTO DIAPER DUE TO INCONTINENCE. ERP OKAY WITH NO URINE SAMPLE.
--- NOTE | 2020-03-17 19:09 | NUR ---
[facility] HERE FOR PT.
== END 2020-03-17 19:17 | disposition home or self-care (01) ==
LOC: ED 19:11
DX: R53.1 Weakness (principal); I11.0 Hypertensive heart disease with heart failure; I50.9 Heart failure, unspecified; E11.9 Type 2 diabetes mellitus without complications; Z87.11 Personal history of peptic ulcer disease
CPT/HCPCS: 36415; 80048; 82040; 85025; 99283

== ENCOUNTER 2020-03-21 22:07 | Inpatient (IN) | payer MEDICARE ==
[~2020-03-21] VITALS: Ht 162.6 cm; Wt 95.4 kg
--- NOTE | 2020-03-21 23:26 | NUR ---
pt resting in pt wheel chair at pt request, pt has no wants or needs at this time, pt on monitors, commercial underwriter will continue to monitor pt vitals
[2020-03-21 23:27] LABS: MEAN CORPUSCULAR HEMOGLOBIN 25.9 pg (27.5-34.5); MEAN CORPUSCULAR HGB CONC 32.5 g/dL (33.2-36.2); MEAN PLATELET VOLUME 7.8 fL (7.4-10.4); PLATELET COUNT 350 x10^3/uL (130-400); RED BLOOD COUNT 5.39 x10^6/uL (4.38-5.82); RED CELL DISTRIBUTION WIDTH 15.6 % (9.4-14.8)
[2020-03-21 23:33] LABS: ALANINE AMINOTRANSFERASE 9 U/L (12-78); ALBUMIN 2.7 g/dL (3.4-5.0); ANION GAP 7 mmol/L (5-15); CALCIUM 8.6 mg/dL (8.5-10.1); CHLORIDE 105 mmol/L (98-107); CREATININE 1.04 mg/dL (0.7-1.3)
[2020-03-21 23:37] LABS: ALKALINE PHOSPHATASE 103 U/L (45-117); BILIRUBIN,TOTAL 0.8 mg/dL (0.2-1.0); TROPONIN I < 0.015 ng/mL (0.000-0.045)
[2020-03-22 00:37] LABS: BASOPHILS # (AUTO) 0.03 x10^3/uL (0-0.1); BASOPHILS % (AUTO) 0 % (0-1); EOSINOPHILS # (AUTO) 0.15 x10^3/uL (0-0.4); EOSINOPHILS % (AUTO) 1 % (1-7); LYMPHOCYTES # (AUTO) 2.04 x10^3/uL (1-3.4); LYMPHOCYTES % (AUTO) 11 % (22-44); MD SCAN; MONOCYTES # (AUTO) 1.28 x10^3/uL (0.2-0.8); MONOCYTES % (AUTO) 7 % (2-9); NEUTROPHILS # (AUTO) 15.57 x10^3/uL (1.8-6.8); NEUTROPHILS % (AUTO) 82 % (42-75)
--- NOTE | 2020-03-22 01:20 | NUR ---
PT LIFTED TO BED. PT BRIEF CHANGED AND PT CLEANED OF FECAL MATTER ON LEGS AND BACK. STOOL SAMPLE COLLECTED. PT STATED "HE WAS UNABLE TO URINATE INTO A BOTTLE OR CUP FOR SAMPLE AND REQUESTED A STRAIGHT CATH" PROVIDER OK STRAIGHT CATH. STRAIGHT CATH WAS UNSUCCESSFUL, DURING CATH PT HAD SOME BLOOD DISCHARGE FROM PENIS WITH SOME RESISTANCE WITH LIGHT PRESSURE. 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 PROVIDER WAS NOTIFIED OF INCEDENT WITH CATH AND WHAT PT STATED
--- NOTE | 2020-03-22 02:52 | NUR ---
PT REFUSED IV BY DIRECTOR OF INSTRUMENTAL MUSIC OR OTHER ER STAFF. PT STATED "HE IS TIRED AND JUST WANTS TO WAIT TILL MORING AND PREFERS A PIC LINE"
[2020-03-22 03:25] VITALS: BP 130/84
[2020-03-22 06:32] VITALS: BP 138/88
[2020-03-22] MEDS: GABAPENTIN 300 MG CAPSULE PO SCH ×2 (09:00→21:00)
[2020-03-22 09:54] LABS: MICROSCOPIC AUTO
[2020-03-22] MEDS: LOSARTAN 50MG TABLET PO SCH (11:00)
[2020-03-22 11:42] VITALS: BP 114/76
[2020-03-22] MEDS ORDERED: MELATONIN 5 MG TABLET PO PRN (13:00)
[2020-03-22] MEDS ORDERED: ONDANSETRON ODT 4 MG PO PRN (13:00)
[2020-03-22] MEDS ORDERED: TRAZODONE 50MG TABLET PO PRN (13:00)
[2020-03-22] MEDS: ENOXAPARIN 40 MG/0.4 ML SQ SCH (13:00)
[2020-03-22] MEDS ORDERED: FOSFOMYCIN 3 GM PACKET PO ONE (14:00)
[2020-03-22 14:10] VITALS: BP 135/82
[2020-03-22 17:10] VITALS: BP 121/80
[2020-03-22] MEDS: ACETAMINOPHEN 325 MG TABLET PO PRN (21:21)
[2020-03-22 21:23] VITALS: BP 124/80
[2020-03-23 00:05] VITALS: BP 123/80
[2020-03-23 08:06] VITALS: BP 134/86
[2020-03-23] MEDS: GABAPENTIN 300 MG CAPSULE PO SCH ×2 (09:00→21:00)
[2020-03-23] MEDS: LOSARTAN 50MG TABLET PO SCH (09:28)
[2020-03-23 12:14] LABS: HCT (SEDRATE) 40.3 % (39.2-51.8)
[2020-03-23 12:17] LABS: MEAN CORPUSCULAR HEMOGLOBIN 25.5 pg (27.5-34.5); MEAN CORPUSCULAR HGB CONC 31.6 g/dL (33.2-36.2); MEAN PLATELET VOLUME 7.7 fL (7.4-10.4); PLATELET COUNT 336 x10^3/uL (130-400); RED BLOOD COUNT 4.98 x10^6/uL (4.38-5.82); RED CELL DISTRIBUTION WIDTH 15.3 % (9.4-14.8)
[2020-03-23 12:21] LABS: ANION GAP 4 mmol/L (5-15); CHLORIDE 116 mmol/L (98-107); CREATININE 0.81 mg/dL (0.7-1.3)
[2020-03-23 12:38] LABS: BASOPHILS # (AUTO) 0.04 x10^3/uL (0-0.1); BASOPHILS % (AUTO) 0 % (0-1); EOSINOPHILS % (AUTO) 4 % (1-7); LYMPHOCYTES # (AUTO) 2.04 x10^3/uL (1-3.4); LYMPHOCYTES % (AUTO) 22 % (22-44); MD SCAN; MONOCYTES % (AUTO) 8 % (2-9); NEUTROPHILS # (AUTO) 5.94 x10^3/uL (1.8-6.8); NEUTROPHILS % (AUTO) 65 % (42-75)
[2020-03-23] MEDS: ENOXAPARIN 40 MG/0.4 ML SQ SCH (13:00)
[2020-03-23 14:16] VITALS: BP 127/74
[2020-03-23 19:53] VITALS: BP 133/77
[2020-03-23 21:34] VITALS: BP 142/88
[2020-03-24 01:01] VITALS: BP 127/78
[2020-03-24] MEDS: GABAPENTIN 300 MG CAPSULE PO SCH ×4 (09:00→20:36)
[2020-03-24 10:31] VITALS: BP 156/93
[2020-03-24] MEDS: LOSARTAN 50MG TABLET PO SCH (10:32)
[2020-03-24] MEDS ORDERED: ERTAPENEM 1 GM in SODIUM CHLORIDE 0.9% 50 ML IV SCH (11:00)
[2020-03-24] MEDS: MEROPENEM 1 GM in SODIUM CHLORIDE 0.9% 100 ML IV SCH ×2 (11:00→18:01)
[2020-03-24] MEDS: ENOXAPARIN 40 MG/0.4 ML SQ SCH (12:16)
[2020-03-24 13:52] VITALS: BP 165/94
[2020-03-24 16:54] VITALS: BP 141/92
[2020-03-24] MEDS: ACETAMINOPHEN 325 MG TABLET PO PRN (18:29)
[2020-03-24 20:16] VITALS: BP 135/84
[2020-03-25 01:28] VITALS: BP 158/93
[2020-03-25] MEDS: MEROPENEM 1 GM in SODIUM CHLORIDE 0.9% 100 ML IV SCH ×3 (03:00→17:38)
[2020-03-25 07:44] VITALS: BP 155/95
[2020-03-25] MEDS: GABAPENTIN 300 MG CAPSULE PO SCH ×2 (07:44→19:37)
[2020-03-25] MEDS: ACETAMINOPHEN 325 MG TABLET PO PRN ×2 (10:33→19:37)
[2020-03-25] MEDS: LOSARTAN 50MG TABLET PO SCH (10:33)
[2020-03-25 11:53] LABS: BASOPHILS # (AUTO) 0.07 x10^3/uL (0-0.1); BASOPHILS % (AUTO) 1 % (0-1); EOSINOPHILS # (AUTO) 0.35 x10^3/uL (0-0.4); EOSINOPHILS % (AUTO) 4 % (1-7); LYMPHOCYTES # (AUTO) 2.38 x10^3/uL (1-3.4); LYMPHOCYTES % (AUTO) 27 % (22-44); MD NO; MEAN CORPUSCULAR HEMOGLOBIN 25.6 pg (27.5-34.5); MEAN CORPUSCULAR HGB CONC 31.4 g/dL (33.2-36.2); MEAN PLATELET VOLUME 7.4 fL (7.4-10.4); MONOCYTES # (AUTO) 0.56 x10^3/uL (0.2-0.8); MONOCYTES % (AUTO) 6 % (2-9); NEUTROPHILS # (AUTO) 5.36 x10^3/uL (1.8-6.8); NEUTROPHILS % (AUTO) 62 % (42-75); PLATELET COUNT 356 x10^3/uL (130-400); RED BLOOD COUNT 5.01 x10^6/uL (4.38-5.82); RED CELL DISTRIBUTION WIDTH 15.5 % (9.4-14.8)
[2020-03-25 12:05] LABS: ALANINE AMINOTRANSFERASE 11 U/L (12-78); ALBUMIN 2.5 g/dL (3.4-5.0); ANION GAP 4 mmol/L (5-15); CALCIUM 8.1 mg/dL (8.5-10.1); CHLORIDE 114 mmol/L (98-107); CREATININE 0.72 mg/dL (0.7-1.3)
[2020-03-25 12:07] LABS: ALKALINE PHOSPHATASE 87 U/L (45-117); BILIRUBIN,TOTAL 0.2 mg/dL (0.2-1.0); TOTAL PROTEIN 7.2 g/dL (6.4-8.2)
[2020-03-25] MEDS: ENOXAPARIN 40 MG/0.4 ML SQ SCH (12:11)
[2020-03-25 13:04] VITALS: BP 150/91
[2020-03-25 17:35] VITALS: BP 147/93
[2020-03-25 19:30] VITALS: BP 137/80
[2020-03-26 00:02] VITALS: BP 151/91
[2020-03-26] MEDS: MEROPENEM 1 GM in SODIUM CHLORIDE 0.9% 100 ML IV SCH ×3 (03:00→21:12)
[2020-03-26 08:13] VITALS: BP 152/93
[2020-03-26] MEDS: GABAPENTIN 300 MG CAPSULE PO SCH ×3 (08:33→21:00)
[2020-03-26] MEDS: ACETAMINOPHEN 325 MG TABLET PO PRN (09:40)
[2020-03-26 13:00] VITALS: BP 144/87
[2020-03-26] MEDS: ENOXAPARIN 40 MG/0.4 ML SQ SCH (13:00)
[2020-03-26] MEDS: LOSARTAN 50MG TABLET PO SCH (13:01)
[2020-03-26 13:59] LABS: ALANINE AMINOTRANSFERASE 14 U/L (12-78); ALBUMIN 2.4 g/dL (3.4-5.0); ANION GAP 5 mmol/L (5-15); CALCIUM 8.3 mg/dL (8.5-10.1); CHLORIDE 111 mmol/L (98-107); CREATININE 0.73 mg/dL (0.7-1.3)
[2020-03-26 14:02] LABS: BASOPHILS # (AUTO) 0.01 x10^3/uL (0-0.1); BASOPHILS % (AUTO) 0 % (0-1); EOSINOPHILS # (AUTO) 0.26 x10^3/uL (0-0.4); EOSINOPHILS % (AUTO) 2 % (1-7); HEMOGRAM NOTE RECHECKED; LYMPHOCYTES # (AUTO) 1.97 x10^3/uL (1-3.4); LYMPHOCYTES % (AUTO) 18 % (22-44); MD NO; MEAN CORPUSCULAR HEMOGLOBIN 25.5 pg (27.5-34.5); MEAN CORPUSCULAR HGB CONC 31.9 g/dL (33.2-36.2); MEAN PLATELET VOLUME 7.5 fL (7.4-10.4); MONOCYTES # (AUTO) 0.71 x10^3/uL (0.2-0.8); MONOCYTES % (AUTO) 7 % (2-9); NEUTROPHILS # (AUTO) 7.89 x10^3/uL (1.8-6.8); NEUTROPHILS % (AUTO) 73 % (42-75); PLATELET COUNT 284 x10^3/uL (130-400); RED BLOOD COUNT 4.85 x10^6/uL (4.38-5.82); RED CELL DISTRIBUTION WIDTH 16.1 % (9.4-14.8)
[2020-03-26 14:03] LABS: HCT (SEDRATE) 38.8 % (39.2-51.8)
[2020-03-26 14:06] LABS: ALKALINE PHOSPHATASE 87 U/L (45-117); BILIRUBIN,TOTAL 0.2 mg/dL (0.2-1.0); TOTAL PROTEIN 7.2 g/dL (6.4-8.2)
[2020-03-26 16:12] VITALS: BP 114/82
[2020-03-26 19:37] VITALS: BP 130/75
[2020-03-27 00:04] VITALS: BP 123/74
[2020-03-27] MEDS: MEROPENEM 1 GM in SODIUM CHLORIDE 0.9% 100 ML IV SCH ×3 (04:50→20:43)
[2020-03-27] MEDS: ACETAMINOPHEN 325 MG TABLET PO PRN ×3 (04:55→16:58)
[2020-03-27 09:13] VITALS: BP 149/83
[2020-03-27] MEDS: GABAPENTIN 300 MG CAPSULE PO SCH ×2 (09:17→20:43)
[2020-03-27] MEDS ORDERED: MAGNESIUM CITRATE 300ML ORAL SOL PO PRN (10:00)
[2020-03-27] MEDS ORDERED: BISACODYL 10 MG SUPP PR PRN (10:00)
[2020-03-27] MEDS: POLYETHYLENE GLYCOL 17 GM PACKET NG SCH (10:38)
[2020-03-27] MEDS: SENNA/DOCUSATE TABLET PO SCH (10:38)
[2020-03-27] MEDS: LOSARTAN 50MG TABLET PO SCH (10:39)
[2020-03-27 12:01] VITALS: BP 129/83
[2020-03-27] MEDS: ENOXAPARIN 40 MG/0.4 ML SQ SCH (13:00)
[2020-03-27 13:39] VITALS: BP 147/94
[2020-03-27 19:19] VITALS: BP 148/82
[2020-03-28 01:12] VITALS: BP 120/83
[2020-03-28] MEDS: MEROPENEM 1 GM in SODIUM CHLORIDE 0.9% 100 ML IV SCH ×3 (04:48→21:06)
[2020-03-28] MEDS: ACETAMINOPHEN 325 MG TABLET PO PRN (04:49)
[2020-03-28 05:12] LABS: BASOPHILS # (AUTO) 0.09 x10^3/uL (0-0.1); BASOPHILS % (AUTO) 1 % (0-1); EOSINOPHILS % (AUTO) 5 % (1-7); LYMPHOCYTES % (AUTO) 22 % (22-44); MD NO; MEAN CORPUSCULAR HEMOGLOBIN 25.5 pg (27.5-34.5); MEAN CORPUSCULAR HGB CONC 31.7 g/dL (33.2-36.2); MEAN PLATELET VOLUME 7.7 fL (7.4-10.4); MONOCYTES # (AUTO) 0.82 x10^3/uL (0.2-0.8); MONOCYTES % (AUTO) 8 % (2-9); NEUTROPHILS # (AUTO) 6.86 x10^3/uL (1.8-6.8); NEUTROPHILS % (AUTO) 65 % (42-75); PLATELET COUNT 334 x10^3/uL (130-400); RED BLOOD COUNT 4.84 x10^6/uL (4.38-5.82); RED CELL DISTRIBUTION WIDTH 15.9 % (9.4-14.8)
[2020-03-28 05:19] LABS: CHLORIDE 114 mmol/L (98-107)
[2020-03-28 05:28] LABS: ALANINE AMINOTRANSFERASE 35 U/L (12-78); ALBUMIN 2.4 g/dL (3.4-5.0); ALKALINE PHOSPHATASE 98 U/L (45-117); ANION GAP 4 mmol/L (5-15); BILIRUBIN,TOTAL 0.1 mg/dL (0.2-1.0); CALCIUM 8.1 mg/dL (8.5-10.1); CREATININE 0.66 mg/dL (0.7-1.3); TOTAL PROTEIN 6.8 g/dL (6.4-8.2)
[2020-03-28] MEDS: GABAPENTIN 300 MG CAPSULE PO SCH ×2 (08:22→21:06)
[2020-03-28] MEDS: SENNA/DOCUSATE TABLET PO SCH (08:22)
[2020-03-28] MEDS: POLYETHYLENE GLYCOL 17 GM PACKET NG SCH (08:22)
[2020-03-28 08:29] VITALS: BP 122/81
[2020-03-28] MEDS: LOSARTAN 50MG TABLET PO SCH (11:44)
[2020-03-28] MEDS: ENOXAPARIN 40 MG/0.4 ML SQ SCH (12:08)
[2020-03-28 14:49] VITALS: BP 143/81
[2020-03-28 20:49] VITALS: BP 149/90
[2020-03-29 03:59] VITALS: BP 149/83
[2020-03-29] MEDS: MEROPENEM 1 GM in SODIUM CHLORIDE 0.9% 100 ML IV SCH ×3 (04:53→21:11)
[2020-03-29 05:08] LABS: HCT (SEDRATE) 39.8 % (39.2-51.8)
[2020-03-29 05:09] LABS: BASOPHILS # (AUTO) 0.07 x10^3/uL (0-0.1); BASOPHILS % (AUTO) 1 % (0-1); EOSINOPHILS # (AUTO) 0.49 x10^3/uL (0-0.4); EOSINOPHILS % (AUTO) 5 % (1-7); LYMPHOCYTES # (AUTO) 2.35 x10^3/uL (1-3.4); LYMPHOCYTES % (AUTO) 23 % (22-44); MD NO; MEAN CORPUSCULAR HEMOGLOBIN 25.9 pg (27.5-34.5); MEAN CORPUSCULAR HGB CONC 32.1 g/dL (33.2-36.2); MEAN PLATELET VOLUME 7.7 fL (7.4-10.4); MONOCYTES # (AUTO) 0.82 x10^3/uL (0.2-0.8); MONOCYTES % (AUTO) 8 % (2-9); NEUTROPHILS # (AUTO) 6.34 x10^3/uL (1.8-6.8); NEUTROPHILS % (AUTO) 63 % (42-75); PLATELET COUNT 329 x10^3/uL (130-400); RED CELL DISTRIBUTION WIDTH 16.4 % (9.4-14.8)
[2020-03-29 05:19] LABS: ANION GAP 1 mmol/L (5-15); C-REACTIVE PROTEIN, QUANT 0.88 mg/dL (0.02-0.49); CALCIUM 8.4 mg/dL (8.5-10.1); CHLORIDE 112 mmol/L (98-107); CREATININE 0.58 mg/dL (0.7-1.3)
[2020-03-29 07:59] VITALS: BP 169/90
[2020-03-29] MEDS: GABAPENTIN 300 MG CAPSULE PO SCH ×2 (08:00→21:00)
[2020-03-29] MEDS: SENNA/DOCUSATE TABLET PO SCH ×2 (08:01→08:02)
[2020-03-29] MEDS: POLYETHYLENE GLYCOL 17 GM PACKET NG SCH (08:01)
[2020-03-29] MEDS: LOSARTAN 50MG TABLET PO SCH (11:13)
[2020-03-29] MEDS: ENOXAPARIN 40 MG/0.4 ML SQ SCH (11:54)
[2020-03-29 13:01] VITALS: BP 152/94
[2020-03-29] MEDS: ACETAMINOPHEN 325 MG TABLET PO PRN (14:28)
[2020-03-29 19:21] VITALS: BP 164/92
[2020-03-30 00:37] VITALS: BP 147/92
[2020-03-30] MEDS: MEROPENEM 1 GM in SODIUM CHLORIDE 0.9% 100 ML IV SCH ×3 (05:16→18:43)
[2020-03-30 05:27] LABS: BASOPHILS # (AUTO) 0.05 x10^3/uL (0-0.1); BASOPHILS % (AUTO) 1 % (0-1); EOSINOPHILS # (AUTO) 0.46 x10^3/uL (0-0.4); EOSINOPHILS % (AUTO) 5 % (1-7); LYMPHOCYTES # (AUTO) 2.79 x10^3/uL (1-3.4); LYMPHOCYTES % (AUTO) 28 % (22-44); MD NO; MEAN CORPUSCULAR HEMOGLOBIN 25.7 pg (27.5-34.5); MEAN CORPUSCULAR HGB CONC 31.8 g/dL (33.2-36.2); MEAN PLATELET VOLUME 7.5 fL (7.4-10.4); MONOCYTES # (AUTO) 0.77 x10^3/uL (0.2-0.8); MONOCYTES % (AUTO) 8 % (2-9); NEUTROPHILS # (AUTO) 5.99 x10^3/uL (1.8-6.8); NEUTROPHILS % (AUTO) 60 % (42-75); PLATELET COUNT 335 x10^3/uL (130-400); RED BLOOD COUNT 4.76 x10^6/uL (4.38-5.82); RED CELL DISTRIBUTION WIDTH 16.6 % (9.4-14.8)
[2020-03-30 05:36] LABS: ANION GAP 7 mmol/L (5-15); CALCIUM 8.3 mg/dL (8.5-10.1); CHLORIDE 112 mmol/L (98-107); CREATININE 0.65 mg/dL (0.7-1.3)
[2020-03-30] MEDS: SENNA/DOCUSATE TABLET PO SCH (08:04)
[2020-03-30] MEDS: POLYETHYLENE GLYCOL 17 GM PACKET NG SCH (08:04)
[2020-03-30] MEDS: GABAPENTIN 300 MG CAPSULE PO SCH ×2 (08:04→19:54)
[2020-03-30 08:12] VITALS: BP 145/83
[2020-03-30 11:30] VITALS: BP 136/81
[2020-03-30] MEDS: LOSARTAN 50MG TABLET PO SCH (11:33)
[2020-03-30] MEDS: ENOXAPARIN 40 MG/0.4 ML SQ SCH (13:00)
[2020-03-30 14:51] VITALS: BP 142/84
[2020-03-30 20:11] VITALS: BP 154/87
[2020-03-30 21:46] VITALS: BP 141/81
[2020-03-30] MEDS: DIPHENHYDRAMINE 25 MG CAPSULE PO PRN (21:49)
[2020-03-31 00:13] VITALS: BP 144/81
[2020-03-31] MEDS: DIPHENHYDRAMINE 25 MG CAPSULE PO PRN ×2 (06:03→22:14)
[2020-03-31] MEDS: ACETAMINOPHEN 325 MG TABLET PO PRN ×2 (06:04→22:14)
[2020-03-31 07:41] VITALS: BP 129/85
[2020-03-31] MEDS: POLYETHYLENE GLYCOL 17 GM PACKET NG SCH (08:59)
[2020-03-31] MEDS: GABAPENTIN 300 MG CAPSULE PO SCH ×2 (09:00→20:18)
[2020-03-31] MEDS: SENNA/DOCUSATE TABLET PO SCH (09:00)
[2020-03-31] MEDS: LOSARTAN 50MG TABLET PO SCH (10:37)
[2020-03-31] MEDS: ENOXAPARIN 40 MG/0.4 ML SQ SCH (12:57)
[2020-03-31 13:10] VITALS: BP 129/83
[2020-03-31 20:19] VITALS: BP 143/89
[2020-03-31 22:09] VITALS: BP 131/83
[2020-04-01 01:17] VITALS: BP 118/75
[2020-04-01] MEDS: POLYETHYLENE GLYCOL 17 GM PACKET NG SCH (09:00)
[2020-04-01] MEDS: SENNA/DOCUSATE TABLET PO SCH (09:00)
[2020-04-01 10:20] VITALS: BP 159/88
[2020-04-01] MEDS: GABAPENTIN 300 MG CAPSULE PO SCH ×2 (10:23→19:55)
[2020-04-01] MEDS: LOSARTAN 50MG TABLET PO SCH (10:24)
[2020-04-01] MEDS: ACETAMINOPHEN 325 MG TABLET PO PRN (10:24)
[2020-04-01] MEDS: ENOXAPARIN 40 MG/0.4 ML SQ SCH (13:00)
[2020-04-01 13:57] VITALS: BP 155/98
[2020-04-01 20:23] VITALS: BP 150/83
[2020-04-01] MEDS: DIPHENHYDRAMINE 25 MG CAPSULE PO PRN (20:25)
[2020-04-01 22:04] VITALS: BP 149/79
[2020-04-02 00:09] VITALS: BP 136/86
[2020-04-02] MEDS: ACETAMINOPHEN 325 MG TABLET PO PRN ×2 (03:07→17:34)
[2020-04-02 07:17] VITALS: BP 150/84
[2020-04-02] MEDS: POLYETHYLENE GLYCOL 17 GM PACKET NG SCH (09:00)
[2020-04-02] MEDS: GABAPENTIN 300 MG CAPSULE PO SCH ×2 (09:00→21:32)
[2020-04-02] MEDS: SENNA/DOCUSATE TABLET PO SCH (09:00)
[2020-04-02] MEDS: LOSARTAN 50MG TABLET PO SCH (09:38)
[2020-04-02] MEDS: ENOXAPARIN 40 MG/0.4 ML SQ SCH (13:00)
[2020-04-02 13:42] VITALS: BP 151/91
[2020-04-02 21:29] VITALS: BP 137/88
[2020-04-03 01:06] VITALS: BP 145/75
[2020-04-03 05:22] LABS: CREATININE 0.64 mg/dL (0.7-1.3)
[2020-04-03] MEDS: DIPHENHYDRAMINE 25 MG CAPSULE PO PRN ×2 (06:26→17:05)
[2020-04-03] MEDS: POLYETHYLENE GLYCOL 17 GM PACKET NG SCH (08:10)
[2020-04-03] MEDS: GABAPENTIN 300 MG CAPSULE PO SCH ×2 (08:10→21:26)
[2020-04-03] MEDS: SENNA/DOCUSATE TABLET PO SCH (08:11)
[2020-04-03 08:16] VITALS: BP 139/87
[2020-04-03] MEDS: LOSARTAN 50MG TABLET PO SCH (11:27)
[2020-04-03] MEDS: ENOXAPARIN 40 MG/0.4 ML SQ SCH (13:00)
[2020-04-03 14:36] VITALS: BP 127/87
[2020-04-03 20:03] VITALS: BP 133/90
[2020-04-04 01:17] VITALS: BP 150/94
[2020-04-04 08:07] VITALS: BP 145/89
[2020-04-04] MEDS: SENNA/DOCUSATE TABLET PO SCH ×2 (09:00→10:11)
[2020-04-04] MEDS: POLYETHYLENE GLYCOL 17 GM PACKET NG SCH (09:00)
[2020-04-04] MEDS: GABAPENTIN 300 MG CAPSULE PO SCH ×3 (09:00→21:48)
[2020-04-04] MEDS: LOSARTAN 50MG TABLET PO SCH (10:13)
[2020-04-04] MEDS: ENOXAPARIN 40 MG/0.4 ML SQ SCH (13:00)
[2020-04-04 13:34] VITALS: BP 152/54
[2020-04-04 19:45] VITALS: BP 136/88
[2020-04-04] MEDS: DIPHENHYDRAMINE 25 MG CAPSULE PO PRN (21:48)
[2020-04-05 00:37] VITALS: BP 150/87
[2020-04-05 08:37] VITALS: BP 127/87
[2020-04-05] MEDS: POLYETHYLENE GLYCOL 17 GM PACKET NG SCH ×2 (09:00→09:47)
[2020-04-05] MEDS: SENNA/DOCUSATE TABLET PO SCH ×2 (09:00→09:47)
[2020-04-05] MEDS: GABAPENTIN 300 MG CAPSULE PO SCH ×2 (09:47→22:12)
[2020-04-05 11:11] VITALS: BP 127/82
[2020-04-05] MEDS: LOSARTAN 50MG TABLET PO SCH (11:13)
[2020-04-05] MEDS: ENOXAPARIN 40 MG/0.4 ML SQ SCH (11:15)
[2020-04-05 14:16] VITALS: BP 156/88
[2020-04-05] MEDS: IBUPROFEN 200 MG TABLET PO PRN (16:19)
[2020-04-05 18:13] VITALS: BP 144/85
[2020-04-05 20:00] VITALS: BP 121/79
[2020-04-06] MEDS: IBUPROFEN 200 MG TABLET PO PRN ×2 (00:42→11:25)
[2020-04-06 00:45] VITALS: BP 122/74
[2020-04-06 06:31] VITALS: BP 155/91
[2020-04-06] MEDS: POLYETHYLENE GLYCOL 17 GM PACKET NG SCH (08:54)
[2020-04-06] MEDS: SENNA/DOCUSATE TABLET PO SCH (08:55)
[2020-04-06] MEDS: GABAPENTIN 300 MG CAPSULE PO SCH ×2 (09:49→21:54)
[2020-04-06] MEDS: LOSARTAN 50MG TABLET PO SCH (11:25)
[2020-04-06] MEDS: ENOXAPARIN 40 MG/0.4 ML SQ SCH (11:27)
[2020-04-06 12:05] LABS: MICROSCOPIC INDICATED
[2020-04-06 12:38] VITALS: BP 134/84
[2020-04-06 20:00] VITALS: BP 118/83
[2020-04-06] MEDS: DIPHENHYDRAMINE 25 MG CAPSULE PO PRN (22:02)
[2020-04-07 02:00] VITALS: BP 120/81
[2020-04-07 04:21] LABS: CREATININE 0.76 mg/dL (0.7-1.3)
[2020-04-07] MEDS: SENNA/DOCUSATE TABLET PO SCH (09:00)
[2020-04-07] MEDS: POLYETHYLENE GLYCOL 17 GM PACKET NG SCH (09:00)
[2020-04-07] MEDS: GABAPENTIN 300 MG CAPSULE PO SCH ×2 (09:09→22:19)
[2020-04-07 09:11] VITALS: BP 158/94
[2020-04-07] MEDS: LOSARTAN 50MG TABLET PO SCH (10:51)
[2020-04-07] MEDS: IBUPROFEN 200 MG TABLET PO PRN (11:48)
[2020-04-07] MEDS: ENOXAPARIN 40 MG/0.4 ML SQ SCH (12:13)
[2020-04-07] MEDS: DIPHENHYDRAMINE 25 MG CAPSULE PO PRN (14:10)
[2020-04-07 14:12] VITALS: BP 145/85
[2020-04-07 18:27] VITALS: BP 130/75
[2020-04-07 21:56] VITALS: BP 143/84
[2020-04-08 01:26] VITALS: BP 135/81
[2020-04-08] MEDS: DIPHENHYDRAMINE 25 MG CAPSULE PO PRN (02:09)
[2020-04-08 03:52] LABS: BASOPHILS # (AUTO) 0.09 x10^3/uL (0-0.1); BASOPHILS % (AUTO) 1 % (0-1); EOSINOPHILS # (AUTO) 0.45 x10^3/uL (0-0.4); EOSINOPHILS % (AUTO) 3 % (1-7); LYMPHOCYTES # (AUTO) 2.56 x10^3/uL (1-3.4); LYMPHOCYTES % (AUTO) 19 % (22-44); MD NO; MEAN CORPUSCULAR HEMOGLOBIN 25.9 pg (27.5-34.5); MEAN CORPUSCULAR HGB CONC 32.4 g/dL (33.2-36.2); MONOCYTES # (AUTO) 1.07 x10^3/uL (0.2-0.8); MONOCYTES % (AUTO) 8 % (2-9); NEUTROPHILS # (AUTO) 9.22 x10^3/uL (1.8-6.8); NEUTROPHILS % (AUTO) 69 % (42-75); PLATELET COUNT 332 x10^3/uL (130-400); RED BLOOD COUNT 4.89 x10^6/uL (4.38-5.82); RED CELL DISTRIBUTION WIDTH 17.8 % (9.4-14.8)
[2020-04-08 04:06] LABS: ALBUMIN 2.8 g/dL (3.4-5.0); ANION GAP 5 mmol/L (5-15); CALCIUM 8.5 mg/dL (8.5-10.1); CHLORIDE 110 mmol/L (98-107)
[2020-04-08] MEDS: POLYETHYLENE GLYCOL 17 GM PACKET NG SCH (07:44)
[2020-04-08] MEDS: SENNA/DOCUSATE TABLET PO SCH (07:44)
[2020-04-08 07:58] VITALS: BP 143/87
[2020-04-08] MEDS: IBUPROFEN 200 MG TABLET PO PRN (07:59)
[2020-04-08] MEDS: GABAPENTIN 300 MG CAPSULE PO SCH ×2 (07:59→22:50)
[2020-04-08] MEDS: LOSARTAN 50MG TABLET PO SCH (11:00)
[2020-04-08] MEDS: ENOXAPARIN 40 MG/0.4 ML SQ SCH (11:01)
[2020-04-08 15:00] VITALS: BP 112/76
[2020-04-08 19:07] VITALS: BP 124/80
[2020-04-09] MEDS: DIPHENHYDRAMINE 25 MG CAPSULE PO PRN (00:06)
[2020-04-09 00:10] VITALS: BP 128/83
[2020-04-09 07:53] VITALS: BP 127/80
[2020-04-09] MEDS: POLYETHYLENE GLYCOL 17 GM PACKET NG SCH (08:25)
[2020-04-09] MEDS: GABAPENTIN 300 MG CAPSULE PO SCH ×2 (08:25→22:00)
[2020-04-09] MEDS: SENNA/DOCUSATE TABLET PO SCH (08:25)
[2020-04-09] MEDS: LOSARTAN 50MG TABLET PO SCH (11:51)
[2020-04-09] MEDS: IBUPROFEN 200 MG TABLET PO PRN (11:51)
[2020-04-09] MEDS ORDERED: ALUMINUM/MAG/SIMETHICONE 30 ML UDC PO PRN (12:30)
[2020-04-09 12:42] VITALS: BP 133/82
[2020-04-09] MEDS: ENOXAPARIN 40 MG/0.4 ML SQ SCH (13:00)
[2020-04-09 22:30] VITALS: BP 123/76
[2020-04-10 01:21] VITALS: BP 134/81
[2020-04-10 07:36] VITALS: BP 156/90
[2020-04-10] MEDS: POLYETHYLENE GLYCOL 17 GM PACKET NG SCH (09:00)
[2020-04-10] MEDS: GABAPENTIN 300 MG CAPSULE PO SCH ×2 (09:00→21:34)
[2020-04-10] MEDS: SENNA/DOCUSATE TABLET PO SCH (09:00)
[2020-04-10] MEDS: LOSARTAN 50MG TABLET PO SCH (10:23)
[2020-04-10 12:51] VITALS: BP 161/88
[2020-04-10] MEDS: ENOXAPARIN 40 MG/0.4 ML SQ SCH (13:00)
[2020-04-10] MEDS ORDERED: AMIKACIN PER PHARMACY MC PRN (14:30)
[2020-04-10] MEDS ORDERED: SODIUM CHLORIDE 0.9% IV SCH (14:30)
[2020-04-10] MEDS ORDERED: LEVOFLOXACIN 750 MG TABLET PO SCH (14:30)
[2020-04-10] MEDS ORDERED: AMIKACIN IV SCH (14:30)
[2020-04-10] MEDS ORDERED: VANCOMYCIN PER PHARMACY MC PRN (16:00)
[2020-04-10] MEDS ORDERED: PHARMACOKINETIC CONSULTATION MC ONE (16:30)
[2020-04-10] MEDS ORDERED: PHARMACOKINETIC MONITORING MC PRN (16:30)
[2020-04-10] MEDS ORDERED: VANCOMYCIN 2,200 MG in SODIUM CHLORIDE 0.9% 500 ML IV ONE (16:30)
[2020-04-10] MEDS: ERTAPENEM 1 GM in SODIUM CHLORIDE 0.9% 50 ML IV SCH (16:34)
[2020-04-10] MEDS: IBUPROFEN 200 MG TABLET PO PRN (16:34)
[2020-04-10 21:30] VITALS: BP 127/81
[2020-04-11 02:16] VITALS: BP 18/84
[2020-04-11 04:38] LABS: BASOPHILS % (AUTO) 0 % (0-1); EOSINOPHILS # (AUTO) 0.49 x10^3/uL (0-0.4); EOSINOPHILS % (AUTO) 3 % (1-7); LYMPHOCYTES # (AUTO) 1.09 x10^3/uL (1-3.4); LYMPHOCYTES % (AUTO) 7 % (22-44); MD NO; MEAN CORPUSCULAR HEMOGLOBIN 25.6 pg (27.5-34.5); MEAN CORPUSCULAR HGB CONC 31.4 g/dL (33.2-36.2); MEAN PLATELET VOLUME 8.1 fL (7.4-10.4); MONOCYTES # (AUTO) 0.39 x10^3/uL (0.2-0.8); MONOCYTES % (AUTO) 2 % (2-9); NEUTROPHILS # (AUTO) 14.68 x10^3/uL (1.8-6.8); NEUTROPHILS % (AUTO) 88 % (42-75); PLATELET COUNT 332 x10^3/uL (130-400)
[2020-04-11 04:49] LABS: ALBUMIN 2.5 g/dL (3.4-5.0); ANION GAP 6 mmol/L (5-15); CALCIUM 8.6 mg/dL (8.5-10.1); CHLORIDE 113 mmol/L (98-107); CREATININE 0.66 mg/dL (0.7-1.3)
[2020-04-11 08:09] VITALS: BP 131/85
[2020-04-11] MEDS: GABAPENTIN 300 MG CAPSULE PO SCH ×2 (08:57→20:03)
[2020-04-11] MEDS: SENNA/DOCUSATE TABLET PO SCH (08:57)
[2020-04-11] MEDS: POLYETHYLENE GLYCOL 17 GM PACKET NG SCH (08:57)
[2020-04-11] MEDS: LOSARTAN 50MG TABLET PO SCH (10:56)
[2020-04-11] MEDS: AMPICILLIN 2 GM in SODIUM CHLORIDE 0.9% 100 ML IV SCH ×4 (10:57→23:20)
[2020-04-11] MEDS ORDERED: VANCOMYCIN 1,700 MG in SODIUM CHLORIDE 0.9% 250 ML IV SCH (12:00)
[2020-04-11] MEDS: ENOXAPARIN 40 MG/0.4 ML SQ SCH (12:21)
[2020-04-11] MEDS ORDERED: VANCOMYCIN 1,800 MG in SODIUM CHLORIDE 0.9% 250 ML IV SCH (13:00)
[2020-04-11 15:41] VITALS: BP 127/81
[2020-04-11] MEDS ORDERED: VANCOMYCIN 1,400 MG in SODIUM CHLORIDE 0.9% 250 ML IV SCH (17:00)
[2020-04-11] MEDS: ERTAPENEM 1 GM in SODIUM CHLORIDE 0.9% 50 ML IV SCH (18:19)
[2020-04-11 20:19] VITALS: BP 123/76
[2020-04-12 01:40] VITALS: BP 127/81
[2020-04-12] MEDS: AMPICILLIN 2 GM in SODIUM CHLORIDE 0.9% 100 ML IV SCH ×6 (03:52→23:39)
[2020-04-12 03:56] LABS: BASOPHILS # (AUTO) 0.04 x10^3/uL (0-0.1); BASOPHILS % (AUTO) 0 % (0-1); EOSINOPHILS # (AUTO) 0.37 x10^3/uL (0-0.4); EOSINOPHILS % (AUTO) 3 % (1-7); LYMPHOCYTES # (AUTO) 1.32 x10^3/uL (1-3.4); LYMPHOCYTES % (AUTO) 10 % (22-44); MD NO; MEAN CORPUSCULAR HEMOGLOBIN 25.4 pg (27.5-34.5); MEAN CORPUSCULAR HGB CONC 31.4 g/dL (33.2-36.2); MEAN PLATELET VOLUME 7.8 fL (7.4-10.4); MONOCYTES # (AUTO) 0.71 x10^3/uL (0.2-0.8); MONOCYTES % (AUTO) 5 % (2-9); NEUTROPHILS # (AUTO) 10.82 x10^3/uL (1.8-6.8); NEUTROPHILS % (AUTO) 82 % (42-75); PLATELET COUNT 333 x10^3/uL (130-400); RED BLOOD COUNT 4.61 x10^6/uL (4.38-5.82); RED CELL DISTRIBUTION WIDTH 17.9 % (9.4-14.8)
[2020-04-12] MEDS: SENNA/DOCUSATE TABLET PO SCH (08:02)
[2020-04-12] MEDS: GABAPENTIN 300 MG CAPSULE PO SCH ×2 (08:02→23:39)
[2020-04-12] MEDS: POLYETHYLENE GLYCOL 17 GM PACKET NG SCH (08:02)
[2020-04-12 08:06] VITALS: BP 111/71
[2020-04-12 11:44] VITALS: BP 122/81
[2020-04-12] MEDS: LOSARTAN 50MG TABLET PO SCH (11:45)
[2020-04-12] MEDS: ENOXAPARIN 40 MG/0.4 ML SQ SCH (13:00)
[2020-04-12 15:29] VITALS: BP 147/82
[2020-04-12] MEDS: ERTAPENEM 1 GM in SODIUM CHLORIDE 0.9% 50 ML IV SCH (18:05)
[2020-04-13] MEDS: AMPICILLIN 2 GM in SODIUM CHLORIDE 0.9% 100 ML IV SCH ×6 (04:03→23:38)
[2020-04-13] MEDS: GABAPENTIN 300 MG CAPSULE PO SCH ×2 (08:08→21:29)
[2020-04-13] MEDS: SENNA/DOCUSATE TABLET PO SCH (08:09)
[2020-04-13] MEDS: POLYETHYLENE GLYCOL 17 GM PACKET NG SCH (08:09)
[2020-04-13 09:09] VITALS: BP 134/82
[2020-04-13] MEDS: ENOXAPARIN 40 MG/0.4 ML SQ SCH (12:12)
[2020-04-13] MEDS: LOSARTAN 50MG TABLET PO SCH (12:12)
[2020-04-13 12:13] VITALS: BP 135/81
[2020-04-13] MEDS: ERTAPENEM 1 GM in SODIUM CHLORIDE 0.9% 50 ML IV SCH (18:09)
[2020-04-13 20:00] VITALS: BP 137/88
[2020-04-14] MEDS: AMPICILLIN 2 GM in SODIUM CHLORIDE 0.9% 100 ML IV SCH ×5 (04:37→20:05)
[2020-04-14 07:31] VITALS: BP 133/83
[2020-04-14] MEDS: POLYETHYLENE GLYCOL 17 GM PACKET NG SCH ×2 (08:00→08:10)
[2020-04-14] MEDS: SENNA/DOCUSATE TABLET PO SCH (08:00)
[2020-04-14] MEDS: GABAPENTIN 300 MG CAPSULE PO SCH ×2 (08:00→21:00)
[2020-04-14] MEDS: LOSARTAN 50MG TABLET PO SCH (11:42)
[2020-04-14] MEDS: ENOXAPARIN 40 MG/0.4 ML SQ SCH (13:00)
[2020-04-14 13:15] VITALS: BP 133/84
[2020-04-14] MEDS: ERTAPENEM 1 GM in SODIUM CHLORIDE 0.9% 50 ML IV SCH (17:56)
[2020-04-14] MEDS: DIPHENHYDRAMINE 25 MG CAPSULE PO PRN (18:09)
[2020-04-15] MEDS: AMPICILLIN 2 GM in SODIUM CHLORIDE 0.9% 100 ML IV SCH ×7 (00:49→22:09)
[2020-04-15 06:00] LABS: HCT (SEDRATE) 35.7 % (39.2-51.8)
[2020-04-15 06:05] LABS: BASOPHILS # (AUTO) 0.02 x10^3/uL (0-0.1); BASOPHILS % (AUTO) 0 % (0-1); EOSINOPHILS % (AUTO) 9 % (1-7); LYMPHOCYTES # (AUTO) 1.71 x10^3/uL (1-3.4); LYMPHOCYTES % (AUTO) 19 % (22-44); MD NO; MEAN CORPUSCULAR HEMOGLOBIN 25.5 pg (27.5-34.5); MEAN CORPUSCULAR HGB CONC 31.4 g/dL (33.2-36.2); MEAN PLATELET VOLUME 7.7 fL (7.4-10.4); MONOCYTES # (AUTO) 0.57 x10^3/uL (0.2-0.8); MONOCYTES % (AUTO) 6 % (2-9); NEUTROPHILS # (AUTO) 5.88 x10^3/uL (1.8-6.8); NEUTROPHILS % (AUTO) 65 % (42-75); PLATELET COUNT 338 x10^3/uL (130-400); RED BLOOD COUNT 4.45 x10^6/uL (4.38-5.82); RED CELL DISTRIBUTION WIDTH 17.9 % (9.4-14.8)
[2020-04-15 06:14] LABS: CHLORIDE 113 mmol/L (98-107)
[2020-04-15 06:27] LABS: ANION GAP 6 mmol/L (5-15); CALCIUM 8.1 mg/dL (8.5-10.1); CREATININE 0.66 mg/dL (0.7-1.3)
[2020-04-15 07:52] VITALS: BP 125/82
[2020-04-15] MEDS: SENNA/DOCUSATE TABLET PO SCH (09:00)
[2020-04-15] MEDS: POLYETHYLENE GLYCOL 17 GM PACKET NG SCH (09:00)
[2020-04-15] MEDS: GABAPENTIN 300 MG CAPSULE PO SCH ×2 (09:49→21:25)
[2020-04-15] MEDS: ENOXAPARIN 40 MG/0.4 ML SQ SCH (12:18)
[2020-04-15] MEDS: LOSARTAN 50MG TABLET PO SCH (12:18)
[2020-04-15 13:15] VITALS: BP 147/90
[2020-04-15 19:32] VITALS: BP 147/90
[2020-04-15] MEDS: ERTAPENEM 1 GM in SODIUM CHLORIDE 0.9% 50 ML IV SCH (21:26)
[2020-04-16] MEDS: AMPICILLIN 2 GM in SODIUM CHLORIDE 0.9% 100 ML IV SCH ×5 (02:27→20:50)
[2020-04-16 02:30] VITALS: BP 146/85
[2020-04-16 07:59] VITALS: BP 158/92
[2020-04-16] MEDS: SENNA/DOCUSATE TABLET PO SCH (09:00)
[2020-04-16] MEDS: POLYETHYLENE GLYCOL 17 GM PACKET NG SCH (09:00)
[2020-04-16] MEDS: GABAPENTIN 300 MG CAPSULE PO SCH ×2 (09:38→23:21)
[2020-04-16] MEDS: LOSARTAN 50MG TABLET PO SCH (11:01)
[2020-04-16 11:02] VITALS: BP 135/81
[2020-04-16] MEDS: ENOXAPARIN 40 MG/0.4 ML SQ SCH (12:07)
[2020-04-16 13:59] VITALS: BP 154/95
[2020-04-16] MEDS: ACETAMINOPHEN 325 MG TABLET PO PRN (16:09)
[2020-04-16 19:40] VITALS: BP 148/81
[2020-04-16 23:16] VITALS: BP 135/86
[2020-04-16] MEDS: ERTAPENEM 1 GM in SODIUM CHLORIDE 0.9% 50 ML IV SCH (23:21)
[2020-04-17] MEDS: AMPICILLIN 2 GM in SODIUM CHLORIDE 0.9% 100 ML IV SCH ×6 (01:00→22:07)
[2020-04-17 02:41] VITALS: BP 149/84
[2020-04-17] MEDS: SENNA/DOCUSATE TABLET PO SCH (09:00)
[2020-04-17] MEDS: POLYETHYLENE GLYCOL 17 GM PACKET NG SCH (09:00)
[2020-04-17 09:45] VITALS: BP 148/88
[2020-04-17] MEDS: GABAPENTIN 300 MG CAPSULE PO SCH ×2 (10:06→21:00)
[2020-04-17] MEDS: LOSARTAN 50MG TABLET PO SCH (11:08)
[2020-04-17 11:29] LABS: CLOSTRIDIUM DIFFICILE ANTIGEN NEGATIVE; CLOSTRIDIUM DIFFICILE TOXIN NEGATIVE (Negative)
[2020-04-17 12:05] VITALS: BP 168/104
[2020-04-17] MEDS: ENOXAPARIN 40 MG/0.4 ML SQ SCH (12:40)
[2020-04-17 13:11] VITALS: BP 155/95
[2020-04-17] MEDS: ACETAMINOPHEN 325 MG TABLET PO PRN (13:11)
[2020-04-17 17:50] VITALS: BP 145/91
[2020-04-17 19:05] VITALS: BP 149/87
[2020-04-17] MEDS: ERTAPENEM 1 GM in SODIUM CHLORIDE 0.9% 50 ML IV SCH (21:36)
[2020-04-17] MEDS: IBUPROFEN 200 MG TABLET PO PRN (22:06)
[2020-04-18 02:00] VITALS: BP 134/77
[2020-04-18] MEDS: AMPICILLIN 2 GM in SODIUM CHLORIDE 0.9% 100 ML IV SCH ×6 (02:23→22:06)
[2020-04-18 03:40] LABS: BASOPHILS % (AUTO) 1 % (0-1); EOSINOPHILS # (AUTO) 0.65 x10^3/uL (0-0.4); EOSINOPHILS % (AUTO) 8 % (1-7); LYMPHOCYTES # (AUTO) 2.04 x10^3/uL (1-3.4); LYMPHOCYTES % (AUTO) 25 % (22-44); MD NO; MEAN CORPUSCULAR HEMOGLOBIN 25.3 pg (27.5-34.5); MEAN CORPUSCULAR HGB CONC 31.2 g/dL (33.2-36.2); MEAN PLATELET VOLUME 7.2 fL (7.4-10.4); MONOCYTES # (AUTO) 0.66 x10^3/uL (0.2-0.8); MONOCYTES % (AUTO) 8 % (2-9); NEUTROPHILS # (AUTO) 4.65 x10^3/uL (1.8-6.8); NEUTROPHILS % (AUTO) 57 % (42-75); PLATELET COUNT 317 x10^3/uL (130-400); RED BLOOD COUNT 4.53 x10^6/uL (4.38-5.82); RED CELL DISTRIBUTION WIDTH 17.8 % (9.4-14.8)
[2020-04-18 03:50] LABS: ANION GAP 4 mmol/L (5-15); CALCIUM 7.9 mg/dL (8.5-10.1); CHLORIDE 112 mmol/L (98-107); CREATININE 0.67 mg/dL (0.7-1.3)
[2020-04-18] MEDS: POLYETHYLENE GLYCOL 17 GM PACKET NG SCH (09:00)
[2020-04-18] MEDS: SENNA/DOCUSATE TABLET PO SCH (09:00)
[2020-04-18] MEDS: GABAPENTIN 300 MG CAPSULE PO SCH ×2 (10:23→21:00)
[2020-04-18] MEDS: LOSARTAN 50MG TABLET PO SCH (10:23)
[2020-04-18 10:24] VITALS: BP 156/93
[2020-04-18 12:01] VITALS: BP 144/80
[2020-04-18] MEDS: ENOXAPARIN 40 MG/0.4 ML SQ SCH (12:23)
[2020-04-18] MEDS: DIPHENHYDRAMINE 25 MG CAPSULE PO PRN (12:27)
[2020-04-18 19:26] VITALS: BP 152/82
[2020-04-18 20:52] VITALS: BP 148/83
[2020-04-18] MEDS: ERTAPENEM 1 GM in SODIUM CHLORIDE 0.9% 50 ML IV SCH (21:32)
[2020-04-19 01:05] VITALS: BP 137/84
[2020-04-19] MEDS: AMPICILLIN 2 GM in SODIUM CHLORIDE 0.9% 100 ML IV SCH ×6 (01:30→23:12)
[2020-04-19 08:57] VITALS: BP 168/95
[2020-04-19] MEDS: SENNA/DOCUSATE TABLET PO SCH (09:00)
[2020-04-19] MEDS: POLYETHYLENE GLYCOL 17 GM PACKET NG SCH (09:08)
[2020-04-19] MEDS: GABAPENTIN 300 MG CAPSULE PO SCH ×2 (09:08→21:00)
[2020-04-19] MEDS: LOSARTAN 50MG TABLET PO SCH (11:04)
[2020-04-19] MEDS: LINEZOLID 600 MG TABLET PO SCH ×3 (11:50→21:07)
[2020-04-19] MEDS: ENOXAPARIN 40 MG/0.4 ML SQ SCH (13:00)
[2020-04-19 15:14] VITALS: BP 152/93
[2020-04-19 19:06] VITALS: BP 156/94
[2020-04-19] MEDS: ERTAPENEM 1 GM in SODIUM CHLORIDE 0.9% 50 ML IV SCH (21:07)
[2020-04-19] MEDS ORDERED: DIPHENHYDRAMINE/ZINC CRM 2%, 30GM TP PRN (21:30)
[2020-04-20] MEDS: AMPICILLIN 2 GM in SODIUM CHLORIDE 0.9% 100 ML IV SCH ×2 (02:44→06:56)
[2020-04-20] MEDS: DIPHENHYDRAMINE 25 MG CAPSULE PO PRN (05:21)
[2020-04-20] MEDS: SENNA/DOCUSATE TABLET PO SCH (09:00)
[2020-04-20] MEDS: POLYETHYLENE GLYCOL 17 GM PACKET NG SCH (09:00)
[2020-04-20 10:00] VITALS: BP 164/95
[2020-04-20] MEDS: GABAPENTIN 300 MG CAPSULE PO SCH ×2 (10:07→21:24)
[2020-04-20] MEDS: LOSARTAN 50MG TABLET PO SCH (10:07)
[2020-04-20] MEDS: LINEZOLID 600 MG TABLET PO SCH ×2 (11:22→21:24)
[2020-04-20] MEDS: ENOXAPARIN 40 MG/0.4 ML SQ SCH (12:26)
[2020-04-20 14:57] VITALS: BP 134/91
[2020-04-20 18:55] VITALS: BP 143/86
[2020-04-20 19:41] VITALS: BP 147/87
[2020-04-20] MEDS: ERTAPENEM 1 GM in SODIUM CHLORIDE 0.9% 50 ML IV SCH (21:24)
[2020-04-21] MEDS: DIPHENHYDRAMINE 25 MG CAPSULE PO PRN ×2 (00:04→18:42)
[2020-04-21 00:05] VITALS: BP 152/91
[2020-04-21 04:47] LABS: HCT (SEDRATE) 37.8 % (39.2-51.8)
[2020-04-21 04:50] LABS: BASOPHILS # (AUTO) 0.04 x10^3/uL (0-0.1); BASOPHILS % (AUTO) 0 % (0-1); EOSINOPHILS # (AUTO) 0.68 x10^3/uL (0-0.4); EOSINOPHILS % (AUTO) 6 % (1-7); LYMPHOCYTES % (AUTO) 17 % (22-44); MD NO; MEAN CORPUSCULAR HEMOGLOBIN 25.4 pg (27.5-34.5); MEAN CORPUSCULAR HGB CONC 31.1 g/dL (33.2-36.2); MEAN PLATELET VOLUME 7.5 fL (7.4-10.4); MONOCYTES # (AUTO) 0.67 x10^3/uL (0.2-0.8); MONOCYTES % (AUTO) 6 % (2-9); NEUTROPHILS # (AUTO) 7.66 x10^3/uL (1.8-6.8); NEUTROPHILS % (AUTO) 70 % (42-75); PLATELET COUNT 285 x10^3/uL (130-400); RED BLOOD COUNT 4.66 x10^6/uL (4.38-5.82); RED CELL DISTRIBUTION WIDTH 18.7 % (9.4-14.8)
[2020-04-21 04:56] LABS: ALANINE AMINOTRANSFERASE 31 U/L (12-78); ALBUMIN 2.6 g/dL (3.4-5.0); ANION GAP 5 mmol/L (5-15); CALCIUM 8.2 mg/dL (8.5-10.1); CHLORIDE 109 mmol/L (98-107); CREATININE 0.81 mg/dL (0.7-1.3)
[2020-04-21 05:03] LABS: ALKALINE PHOSPHATASE 170 U/L (45-117); BILIRUBIN,TOTAL 0.3 mg/dL (0.2-1.0); TOTAL PROTEIN 7.1 g/dL (6.4-8.2)
[2020-04-21 06:50] VITALS: BP 137/86
[2020-04-21] MEDS: SENNA/DOCUSATE TABLET PO SCH (09:00)
[2020-04-21] MEDS: POLYETHYLENE GLYCOL 17 GM PACKET NG SCH (09:00)
[2020-04-21] MEDS: GABAPENTIN 300 MG CAPSULE PO SCH ×2 (10:04→21:02)
[2020-04-21] MEDS: LINEZOLID 600 MG TABLET PO SCH ×2 (10:04→21:02)
[2020-04-21] MEDS: LOSARTAN 50MG TABLET PO SCH (12:13)
[2020-04-21] MEDS: ENOXAPARIN 40 MG/0.4 ML SQ SCH (12:18)
[2020-04-21 13:09] VITALS: BP 137/84
[2020-04-21] MEDS: ERTAPENEM 1 GM in SODIUM CHLORIDE 0.9% 50 ML IV SCH (21:00)
[2020-04-21 21:07] VITALS: BP 116/51
[2020-04-22 00:10] VITALS: BP 124/79
[2020-04-22 07:01] VITALS: BP 132/72
[2020-04-22] MEDS: SENNA/DOCUSATE TABLET PO SCH (09:00)
[2020-04-22] MEDS: POLYETHYLENE GLYCOL 17 GM PACKET NG SCH (09:00)
[2020-04-22] MEDS: GABAPENTIN 300 MG CAPSULE PO SCH ×2 (09:08→21:25)
[2020-04-22] MEDS: LINEZOLID 600 MG TABLET PO SCH ×2 (09:08→21:25)
[2020-04-22] MEDS: LOSARTAN 50MG TABLET PO SCH (11:46)
[2020-04-22 12:05] VITALS: BP 131/82
[2020-04-22] MEDS: ENOXAPARIN 40 MG/0.4 ML SQ SCH (13:00)
[2020-04-22] MEDS: DIPHENHYDRAMINE 25 MG CAPSULE PO PRN (15:39)
[2020-04-22 20:02] VITALS: BP 130/76
[2020-04-22] MEDS: ERTAPENEM 1 GM in SODIUM CHLORIDE 0.9% 50 ML IV SCH (21:25)
[2020-04-23 08:21] VITALS: BP 138/88
[2020-04-23] MEDS: POLYETHYLENE GLYCOL 17 GM PACKET NG SCH (09:00)
[2020-04-23] MEDS: SENNA/DOCUSATE TABLET PO SCH (09:00)
[2020-04-23 10:15] VITALS: BP 147/88
[2020-04-23] MEDS: LINEZOLID 600 MG TABLET PO SCH ×2 (10:21→21:09)
[2020-04-23] MEDS: GABAPENTIN 300 MG CAPSULE PO SCH ×2 (10:22→21:09)
[2020-04-23] MEDS: LOSARTAN 50MG TABLET PO SCH (10:22)
[2020-04-23] MEDS: ENOXAPARIN 40 MG/0.4 ML SQ SCH (13:00)
[2020-04-23 13:58] VITALS: BP 127/84
[2020-04-23 21:08] VITALS: BP 138/81
[2020-04-23] MEDS: ERTAPENEM 1 GM in SODIUM CHLORIDE 0.9% 50 ML IV SCH (21:10)
[2020-04-24 00:04] VITALS: BP 133/87
[2020-04-24 08:45] VITALS: BP 135/84
[2020-04-24] MEDS: SENNA/DOCUSATE TABLET PO SCH (09:00)
[2020-04-24] MEDS: GABAPENTIN 300 MG CAPSULE PO SCH ×2 (10:16→21:10)
[2020-04-24] MEDS: LOSARTAN 50MG TABLET PO SCH (10:16)
[2020-04-24] MEDS: LINEZOLID 600 MG TABLET PO SCH (10:16)
[2020-04-24] MEDS: POLYETHYLENE GLYCOL 17 GM PACKET NG SCH (10:16)
[2020-04-24 12:17] VITALS: BP 117/73
[2020-04-24] MEDS: ENOXAPARIN 40 MG/0.4 ML SQ SCH (12:33)
[2020-04-24 13:45] LABS: BASOPHILS # (AUTO) 0.01 x10^3/uL (0-0.1); BASOPHILS % (AUTO) 0 % (0-1); EOSINOPHILS # (AUTO) 0.44 x10^3/uL (0-0.4); EOSINOPHILS % (AUTO) 4 % (1-7); LYMPHOCYTES # (AUTO) 1.92 x10^3/uL (1-3.4); LYMPHOCYTES % (AUTO) 17 % (22-44); MD NO; MEAN CORPUSCULAR HEMOGLOBIN 26.2 pg (27.5-34.5); MEAN CORPUSCULAR HGB CONC 32.2 g/dL (33.2-36.2); MEAN PLATELET VOLUME 7.8 fL (7.4-10.4); MONOCYTES # (AUTO) 0.51 x10^3/uL (0.2-0.8); MONOCYTES % (AUTO) 4 % (2-9); NEUTROPHILS % (AUTO) 75 % (42-75); PLATELET COUNT 294 x10^3/uL (130-400); RED BLOOD COUNT 4.89 x10^6/uL (4.38-5.82); RED CELL DISTRIBUTION WIDTH 18.9 % (9.4-14.8)
[2020-04-24] MEDS ORDERED: GABA300C PO (16:11)
[2020-04-24] MEDS ORDERED: LOSA50TA2 PO (16:11)
[2020-04-24] MEDS ORDERED: MELA5TAB14 PO (16:11)
[2020-04-24] MEDS ORDERED: DIPH25CA26 PO (16:11)
[2020-04-24] MEDS ORDERED: Senna/Docusate PO (16:11)
[2020-04-24] MEDS ORDERED: ACET325T26 PO (16:11)
[2020-04-24] MEDS ORDERED: HYDR-3342 PO (16:11)
[2020-04-24] MEDS ORDERED: POLY17PO5 NG (16:11)
[2020-04-24 16:32] VITALS: BP 135/81
[2020-04-24 19:14] VITALS: BP 124/83
[2020-04-24] MEDS: IBUPROFEN 200 MG TABLET PO PRN (21:10)
[2020-04-25] VITALS: BP 114/72
[2020-04-25 08:08] VITALS: BP 114/72
[2020-04-25] MEDS: GABAPENTIN 300 MG CAPSULE PO SCH ×2 (08:30→20:31)
[2020-04-25] MEDS: SENNA/DOCUSATE TABLET PO SCH (08:30)
[2020-04-25] MEDS: POLYETHYLENE GLYCOL 17 GM PACKET NG SCH (08:30)
[2020-04-25] MEDS: LOSARTAN 50MG TABLET PO SCH (11:06)
[2020-04-25 12:55] VITALS: BP 115/69
[2020-04-25] MEDS: ENOXAPARIN 40 MG/0.4 ML SQ SCH (13:00)
[2020-04-25] MEDS ORDERED: DIPHENHYDRAMINE/ZINC CRM 2%, 30GM TP PRN (14:00)
[2020-04-25 19:12] VITALS: BP 126/82
[2020-04-26 00:25] VITALS: BP 139/83
[2020-04-26] MEDS: DIPHENHYDRAMINE 25 MG CAPSULE PO PRN ×2 (02:19→22:03)
[2020-04-26] MEDS: SENNA/DOCUSATE TABLET PO SCH (09:00)
[2020-04-26 09:03] VITALS: BP 136/85
[2020-04-26] MEDS: GABAPENTIN 300 MG CAPSULE PO SCH ×2 (09:19→22:02)
[2020-04-26] MEDS: LOSARTAN 50MG TABLET PO SCH (11:07)
[2020-04-26 13:05] VITALS: BP 151/85
[2020-04-26 20:08] VITALS: BP 132/80
[2020-04-26 22:01] VITALS: BP 145/89
[2020-04-27 08:07] VITALS: BP 147/79
[2020-04-27] MEDS: GABAPENTIN 300 MG CAPSULE PO SCH ×2 (10:14→21:00)
[2020-04-27] MEDS: LOSARTAN 50MG TABLET PO SCH (10:14)
[2020-04-27 15:20] VITALS: BP 142/86
[2020-04-27 22:37] VITALS: BP 139/84
[2020-04-28] MEDS: GABAPENTIN 300 MG CAPSULE PO SCH (09:36)
[2020-04-28] MEDS: LOSARTAN 50MG TABLET PO SCH (09:37)
[2020-04-28 10:21] VITALS: BP 130/79
[2020-04-28 12:05] VITALS: BP 129/78
== END 2020-04-28 15:39 | disposition home health service (06) | DRG 689 ==
LOC: ED 03-22 01:12 → EDIP 03-22 01:59 → 3N 03-22 03:12
PROVIDERS: ADMIT Family Medicine; ATTEND Hospitalist
PROC: 02HV33Z Insertion of Infusion Device into Superior Vena Cava, Percutaneous Approach (ICD-10-PCS; principal; 2020-03-26)
PROC: B548ZZA Ultrasonography of Superior Vena Cava, Guidance (ICD-10-PCS; 2020-03-26)
PROC: B5181ZA Fluoroscopy of Superior Vena Cava using Low Osmolar Contrast, Guidance (ICD-10-PCS; 2020-03-26)
DX: N39.0 Urinary tract infection, site not specified (principal); E43 Unspecified severe protein-calorie malnutrition; Z16.12 Extended spectrum beta lactamase (ESBL) resistance; R19.7 Diarrhea, unspecified; R62.7 Adult failure to thrive; Z86.19 Personal history of other infectious and parasitic diseases; I11.0 Hypertensive heart disease with heart failure; E11.610 Type 2 diabetes mellitus with diabetic neuropathic arthropathy; E11.69 Type 2 diabetes mellitus with other specified complication; E66.9 Obesity, unspecified; G62.9 Polyneuropathy, unspecified; I50.9 Heart failure, unspecified; K59.00 Constipation, unspecified; L27.0 Generalized skin eruption due to drugs and medicaments taken internally; L89.109 Pressure ulcer of unspecified part of back, unspecified stage; Z79.899 Other long term (current) drug therapy; B96.1 Klebsiella pneumoniae [K. pneumoniae] as the cause of diseases classified elsewhere; Z87.440 Personal history of urinary (tract) infections; Z87.891 Personal history of nicotine dependence; Z89.511 Acquired absence of right leg below knee; Z89.611 Acquired absence of right leg above knee; Z91.19 Patient's noncompliance with other medical treatment and regimen; Z98.1 Arthrodesis status; G89.29 Other chronic pain; Q76.0 Spina bifida occulta; M10.9 Gout, unspecified; Z88.0 Allergy status to penicillin; Z88.8 Allergy status to other drugs, medicaments and biological substances; Z82.49 Family history of ischemic heart disease and other diseases of the circulatory system; Z83.3 Family history of diabetes mellitus; D72.829 Elevated white blood cell count, unspecified; B96.4 Proteus (mirabilis) (morganii) as the cause of diseases classified elsewhere; B95.2 Enterococcus as the cause of diseases classified elsewhere; T36.8X5A Adverse effect of other systemic antibiotics, initial encounter; Z68.36 Body mass index [BMI] 36.0-36.9, adult; M25.532 Pain in left wrist
CPT/HCPCS: 36415; 36573; 71045; 76770; 80048; 80053; 80069; 81001; 82565; 83735; 84484; 84550; 85025; 85651; 86140; 87040; 87077; 87086; 87186; 87324; 93005; G0378; J0290; J1335; J2185; J3370; J7509; C1751; J7040; J7050; Q0163

== ENCOUNTER 2020-07-10 12:40 | Emergency (ER) | payer MEDICARE ==
[~2020-07-10] VITALS: Ht 162.6 cm; Wt 91.8 kg
[~2020-07-10 12:40] MED LIST changes: -CLIN300C8 PO; +CLIN300C9 PO; +DIPH25CA26 PO; +MELA5TAB14 PO; +POLY17PO5 NG; +Senna/Docusate PO
--- NOTE | 2020-07-10 13:00 | NUR ---
PT BIB EMS FOR LEFT LOWER LEG REDNESS AND SWELLING. HOME HEALTH NURSE WAS CONCERNED ABOUT A POSSIBLE CLOT AND OR INFECTION. PT DOES NOT WANT IV OR BLOOD DRAWN AT THIS TIME. MD IS BEDSIDE. PT CONNECTED TO MONITORING EQUIPMENT.
--- NOTE | 2020-07-10 14:46 | NUR ---
PT RESTING IN [place] AT THIS TIME, MONITORING STILL ON PT. BLANKETS PROVIDED TO HELP PROP PT'S LEG, WILL CONTINUE TO MONITOR.
[2020-07-10 14:51] VITALS: BP 143/95
--- NOTE | 2020-07-10 16:19 | NUR ---
PT TRANSPORTED BY [facility] TO CUSTODIAL VIA .
== END 2020-07-10 16:20 | disposition home or self-care (01) ==
LOC: ED 14:23
DX: M79.662 Pain in left lower leg (principal); M25.572 Pain in left ankle and joints of left foot; M79.89 Other specified soft tissue disorders; E11.9 Type 2 diabetes mellitus without complications; I11.0 Hypertensive heart disease with heart failure; I50.9 Heart failure, unspecified
CPT/HCPCS: 99284